=== PATIENT | male | born 1960 | race Caucasian/White ===

== ENCOUNTER 2019-12-21 07:37 | Emergency (ER) | payer SELFPAY ==
[2019-12-21] VITALS (16 sets, daily range): BP systolic 132–186; BP diastolic 71–89; PULSE 62–64; RESP 13–20; TEMP 36.4; O2SAT 92–98; BMI 43.7
--- NOTE | 2019-12-21 07:49 | ED_ITS ---
Entered by Enedina Mendoza, acting as scribe for HPI - Headache General: Chief Complaint: Headache Stated Complaint: Headache,blurred vision Time Seen by Provider: 12/21/19 07:49 History of Present Illness: HPI Narrative: 59 yo male presents with headache and blurred vision. Patient states for the last month he has had a headache and yesterday he would notice some changes in his vision. Patient reports while driving he had looked down at the water over a bridge and then he returned to look at the roadway his vision became blurred and he became dizzy. Patient appears well. Patient does have a history of hypertension. And patient is on warfarin. MD elicited complaint: headache Severity: moderate Associated symptoms: Reports other (blurred vision) Review of Systems General: Reports: 10 or more systems reviewed and unremarkable except in HPI and below Neuro: Reports: headache and dizziness PFSH ED PFSH: Statuses (acute, chronic, etc) shown below reflect problem list status as previously entered and may not be historically accurate Family History (Updated 12/17/19 @ 09:58 by Brenda Caba LPN) Mother Myocardial infarction Social History Smoking and tobacco status: former smoker Physical Exam Const: COMMON NORMALS: no apparent distress and oriented x3 GENERAL APPEARANCE: cooperative HENMT: COMMON NORMALS: normocephalic, external ears normal, EAC's normal, TM's normal bilaterally and external nose normal HEAD & SCALP: normal to inspection and normocephalic FACE & SINUS: normal facial exam NOSE: external nose normal GENERAL EAR: hearing not grossly impaired EXTERNAL EAR: Yes external ears normal EXTERNAL AUDITORY CANAL: EAC's normal TYMPANIC MEMBRANE: TM's normal bilaterally MOUTH: oral and palatal mucosa normal THROAT: posterior oropharynx normal Eye: COMMON NORMALS: PERRL and EOMs intact bilaterally PUPIL: Yes PERRL Neck/C-Spine: COMMON NORMALS: full ROM and no lymphadenopathy Lymph: LYMPHATIC: no lymphedema noted Chest: COMMONS NORMALS: inspection of chest normal and palpation of chest normal Resp: COMMON NORMALS: normal respiratory effort and clear to auscultation bilaterally AUSCULTATION: clear to auscultation bilaterally Cardio: COMMON NORMALS: regular rate and regular rhythm RATE: regular rate RHYTHM: regular rhythm GI: COMMON NORMALS: normal to inspection, nondistended, normoactive bowel sounds and non-tender : COMMON NORMALS: Yes no CVA tenderness BLADDER/KIDNEY EXAM: Yes no CVA tenderness Back/Pelvis: COMMON NORMALS: no CVA tenderness and thoracic and lumbar spine normal to inspection Extremity: COMMON NORMALS: normal to inspection GENERAL: No edema Neuro: COMMON NORMALS: oriented x3, moves all extremities and no focal motor deficits Psych: COMMON NORMALS: mental status grossly normal and cooperative Skin: COMMON NORMALS: no rashes or lesions noted GENERAL SKIN EXAM: no rashes or lesions noted Course Vital Signs: Vital signs: Vital Signs Temperature 97.6 F 12/21/19 07:43 Pulse Rate 62 12/21/19 09:29 Respiratory Rate 20 H 12/21/19 09:29 Blood Pressure 132/71 12/21/19 09:29 Pulse Oximetry 98 12/21/19 09:29 MDM - Headache MDM Narrative: Medical decision making narrative: Patient comes in today with complaints of headache and dizziness. Patient has a history of hypertension. Patient also reports history of vertigo. Patient appears well. Patient appears in no acute distress. Patient denies any nausea vomiting or chest pain. Patient appears in no pain. Exam notes normal for endoscopy. Bilateral tympanic membranes are clear. Respirations are even lungs are clear to auscultation. Abdomen is rotund. Differential diagnosis includes CVA, M?ni?re's disease, hearing loss, vertigo, BPV, anxiety. Patient had resolution of headache and dizziness with rest in the ER. CT scan of the head noted no abnormalities. EKG noted no acute changes. And laboratory values were normal. Troponin was normal. Reviewed exam with patient with recommendations for treatment with meclizine for dizziness. Since patient had resolution of headache in the emergency department we will just recommend Tylenol otherwise for pain. We will arrange for patient to have ENT follow-up for further evaluation of tinnitus and dizzy spells. Patient reports understanding agreed with plan and recommendations. Lab Data: Labs: Lab Results 12/21/19 12/21/19 12/21/19 Range/Units 08:13 08:13 08:13 WBC 7.2 (4.0-10.0) 10^3/ uL RBC 5.71 H (4.1-5.3) 10^6/u L Hgb 15.4 (11.7-16.6) g/dL Hct 48.0 (42.0-52.0) % MCV 84.1 (80-94) fL MCH 27.0 L (28.0-34.0) pg MCHC 32.1 (30.0-36.0) g/dL RDW 13.2 (12.1-15.1) % Plt Count 283 (130-400) 10^3/c mm MPV 10.1 (7.4-10.4) fL Neut % (Auto) 62.6 % Lymph % (Auto) 22.8 % [place] % (Auto) 7.2 % Eos % (Auto) 6.3 % Baso % (Auto) 0.8 % Neut # (Auto) 4.5 (1.8-7.7) 10^3/u L Lymph # (Auto) 1.6 (0.8-4.8) 10^3/u L [place] # (Auto) 0.5 (0.2-0.9) 10^3/u L Eos # (Auto) 0.5 (0.0-0.8) 10^3/u L Baso # (Auto) 0.1 (0.0-0.1) 10^3/u L Nucleated RBC % (a uto) 0 % Nucleated RBCs # 0.0 /100WBC Sodium 136 (136-145) mmol/L Potassium 4.3 (3.5-5.1) mmol/L Chloride 101 (98-107) mmol/L Carbon Dioxide 23 (22-29) mmol/L Anion Gap 16.3 (5-19) BUN 12 (6-20) mg/dL Creatinine 0.8 (0.7-1.2) mg/dL GFR Calculation 99.3 (90-130) mL/min Glucose 142 H (65-115) mg/dL Calcium 9.2 (8.5-10.5) mg/dL Total Bilirubin 0.5 (0.15-1.2) mg/dL AST 17 (0-40) U/L ALT 17 (0-41) U/L Alkaline Phosphata se 109 (40-130) IU/L Troponin T Baselin e 9 (0-15) ng/mL Total Protein 7.0 (6.6-8.7) g/dL Albumin 3.9 (3.5-5.2) g/dL Globulin 3.1 (1.3-4.6) g/dL EKG Data^: EKG 1: Attestation: I personally reviewed and interpreted this EKG as follows: (0811, SR, rate 57 bpm and regular, no ectopy, no ST elevation) Discharge Plan Discharge Patient Disposition: Home, Self-Care Clinical Impression: Vertigo, Bilateral tinnitus Hypertension Qualifiers: Hypertension type: essential hypertension Qualified Code(s): I10 - Essential (primary) hypertension Condition: Stable Prescriptions: New meclizine 25 mg tablet 25 mg PO TID PRN (Reason: dizziness) Qty: 30 RF: 0 No Action aspirin [Adult Low Dose Aspirin] 81 mg tablet,delayed release (DR/EC) 81 mg PO DAILY RF: 0 sotalol 80 mg tablet 80 mg PO BID RF: 0 nitroglycerin [Nitrostat] 0.4 mg tablet, sublingual 0.4 mg SUBLINGUAL Q5M PRNRF: 0 warfarin 5 mg tablet 5 mg PO DIRECTED RF: 0 lovastatin 40 mg tablet 40 mg PO DAILY RF: 0 amlodipine 10 mg tablet 10 mg PO DAILY RF: 0 Discharge Orders: Discharge Order (Routine); Ordered 12/21/19 Ordered By: Pablo Prabhakar Referrals: Giorgi Cortes MD [Primary Care Provider] - Discharge Diet: Usual diet Discharge Activity: Resume usual activity Patient Instructions: Meclizine (By mouth), Headache, Benign Paroxysmal Positional Vertigo (ED) Activity Restrictions/Additional Instructions: Drink plenty of fluids Continue with routine medications Activity as tolerated Follow-up with primary care for further treatment Case management will contact you regarding ENT follow-up Coding Level of Care Code ED Doctor Of Medicine for Chg Fwd Exam Problem Focused The documentation recorded by the Reji john Kialy, accurately reflects the service I personally performed and the decisions made by Vanna mariano William J, FNP Dec 21, 2019 07:37
--- NOTE | 2019-12-21 07:49 | CTR_ITS ---
PROCEDURE INFORMATION: Exam: CT Head Without Contrast Exam date and time: 12/21/2019 7:51 AM Age: 59 years old Clinical indication: Pain; Headache not specified; Patient HX: C/O SINGLETON w blurred vision x 1 month; Additional info: Headache, blurred vision TECHNIQUE: Imaging protocol: Computed tomography of the head without contrast. Total DLP: 910.77 mGy-cm Radiation optimization: All CT scans at this facility use at least one of these dose optimization techniques: automated exposure control; mA and/or kV adjustment per patient size (includes targeted exams where dose is matched to clinical indication); or iterative reconstruction. COMPARISON: No relevant prior studies available. FINDINGS: Brain: There is no acute intracranial hemorrhage or mass effect. Mild diffuse volume loss is within the range of normal for patient age. There are small vessel ischemic changes within the periventricular and subcortical white matter, but the normal marin/white matter delineation is maintained. Ventricles: Normal. No ventriculomegaly. Bones/joints: Unremarkable. No acute fracture. Sinuses: Visualized sinuses are unremarkable. No fluid levels. Mastoid air cells: Visualized mastoid air cells are well aerated. Soft tissues: Unremarkable. CT/CT head wo con* [id number] IMPRESSION: No acute intracranial hemorrhage or edema. Radiation Dose CTDIVOL = (mGy): DLP = 910.77 (mGy-cm)
--- NOTE | 2019-12-21 07:50 | ECG_ITS ---
Measurements Intervals [place] Rate: 57 P: 61 [place]: 154 QRS: 66 QRSD: 118 T: 78 QT: 419 QTc: 410 SINUS BRADYCARDIA POSSIBLE LEFT ATRIAL ENLARGEMENT [-0.1mV P WAVE IN V1/V2] INDETERMINATE AXIS INCOMPLETE RIGHT BUNDLE BRANCH BLOCK [90+ ms QRS DURATION, TERMINAL R IN V1/V2, 4 Compared to ECG 11/28/2017 11:02:08 Indeterminate axis now present Atrial fibrillation no longer present ST (T wave) deviation no longer present Electronically Signed On 12-21-2019 22:16:12 CAN DRAGGER by Diane Heart M.D. [id number]
--- NOTE | 2019-12-21 07:54 | PC.NURSE ---
Pt to CT
--- NOTE | 2019-12-21 08:04 | PC.NURSE ---
Pt returned from CT
[2019-12-21 08:24] LABS: Basophils # 0.1 10^3/uL (0.0-0.1); Basophils % 0.8 %; Eosinophils # 0.5 10^3/uL (0.0-0.8); Eosinophils % 6.3 %; Hemoglobin 15.4 g/dL (11.7-16.6); Lymphocytes # 1.6 10^3/uL (0.8-4.8); Lymphocytes % 22.8 %; Mean Corpuscular HGB Conc 32.1 g/dL (30.0-36.0); Mean Corpuscular Volume 84.1 fL (80-94); Mean Platelet Volume 10.1 fL (7.4-10.4); Monocytes # 0.5 10^3/uL (0.2-0.9); Monocytes % 7.2 %; Neutrophils # 4.5 10^3/uL (1.8-7.7); Neutrophils % 62.6 %; Nucleated Red Blood Cells % 0 %; Platelet Count 283 10^3/cmm (130-400); Red Blood Count 5.71 10^6/uL (4.1-5.3); Red Cell Distribution Width 13.2 % (12.1-15.1); White Blood Count 7.2 10^3/uL (4.0-10.0)
[2019-12-21 08:45] LABS: Alanine Aminotransferase 17 U/L (0-41); Albumin Level 3.9 g/dL (3.5-5.2); Alkaline Phosphatase 109 IU/L (40-130); Anion Gap 16.3 (5-19); Aspartate Amino Transferase 17 U/L (0-40); Blood Urea Nitrogen 12 mg/dL (6-20); Calcium 9.2 mg/dL (8.5-10.5); Carbon Dioxide 23 mmol/L (22-29); Chloride 101 mmol/L (98-107); Globulin 3.1 g/dL (1.3-4.6); Glomerular Filtration Rate 99.3 mL/min (90-130); Glucose 142 mg/dL (65-115); Potassium 4.3 mmol/L (3.5-5.1); Sodium 136 mmol/L (136-145); Total Bilirubin 0.5 mg/dL (0.15-1.2)
[2019-12-21 08:46] LABS: Troponin(5th) Baseline 9 ng/mL (0-15)
[2019-12-21 09:08] LABS: Add Urine Microscopic? NO
[2019-12-21 09:50] LABS: Bilirubin Urine Neg (NEGATIVE); Blood Urine Neg (Negative); Glucose Urine UA Norm (Normal); Ketones Urine Negative (Negative); Leukocyte Esterase Urine Negative (Negative); Nitrate Urine Negative (Negative); Protein Urine Neg (Negative); Specific Gravity, Urine 1.015 (1.005-1.030); Urine Appearance Clear (CLEAR); Urine Color Yellow (Yellow); Urobilinogen Urine 1 mg/dL (Negative)
--- NOTE | 2019-12-24 14:12 | DCPLANNER ---
associate marketing manager had message to schedule a follow up appointment for patient with Dr. Painter, ENT. associate marketing manager called the office of Dr. Painter, spoke with Margarita, gave clinic patients information, clinic will call case management specialist and patient with appointment information.
--- NOTE | 2019-12-27 10:57 | DCPLANNER ---
Patient has an appointment scheduled for Thursday, January 02, 2020 at 9:[address] Painter. Clinic will call patient with appointment information.
--- NOTE | 2020-01-04 15:19 | DCPLANNER ---
Patient did attend appointment scheduled for 01.02.20 with ENT.
== END 2019-12-21 09:47 | disposition home or self-care (01) ==
PROVIDERS: Emergency Provider Nurse Practitioner Family; Family Provider Family Medicine; PCP Family Medicine
DX: H93.13 Tinnitus, bilateral (principal); R42 Dizziness and giddiness; I10 Essential (primary) hypertension; Z79.82 Long term (current) use of aspirin; Z79.01 Long term (current) use of anticoagulants; Z87.891 Personal history of nicotine dependence
CPT/HCPCS: 36415; 70450; 80053; 81003; 84484; 85025; 93005; 99283

== ENCOUNTER → 2020-01-02 08:48 | Outpatient (BNVA) | payer SELFPAY | PROVIDERS: Family Provider Family Medicine; PCP Family Medicine; Visit Provider Otolaryngology | DX: H93.13 Tinnitus, bilateral (principal); H90.3 Sensorineural hearing loss, bilateral | CPT/HCPCS: 99203; 99214 ==

== ENCOUNTER 2020-05-12 23:07 | Emergency (ER) | payer SELFPAY ==
[2020-05-12 23:19] VITALS: BP 165/97; PULSE 64; RESP 22; TEMP 36.5; O2SAT 96; BMI 41.8
--- NOTE | 2020-05-12 23:32 | XRR_ITS ---
PROCEDURE INFORMATION: Exam: XR Chest, 1 View Exam date and time: 05/12/2020 11:50 PM Age: 59 years old Clinical indication: Chest pain; Type not specified; Patient HX: Cp x 3 days TECHNIQUE: Imaging protocol: XR of the chest Views: 1 view. COMPARISON: CR Chest 1 [place] [id number] 11/28/2017 7:58 AM FINDINGS: Lungs: Unremarkable. No consolidation. Pleural space: Unremarkable. No pleural effusion. No pneumothorax. Heart/Mediastinum: There is mild cardiomegaly. Bones/joints: Unremarkable. XR/XR chest 1V portable [id number] IMPRESSION: No acute abnormality.
--- NOTE | 2020-05-12 23:33 | ECG_ITS ---
[facility] Test Date: 2020-05-13 Pat Name: Dariel Peck Department: Room: Gender: Male S[employer] W[employer] Hand: : 1960 Requested By: Weston Cordero Order Number: [id number] Brianna MD: Diane Heart M.D. Measurements Intervals [place] Rate: 53 P: 49 DC: 162 QRS: 123 QRSD: 113 T: 62 QT: 430 QTc: 405 Interpretive Statements SINUS BRADYCARDIA POSSIBLE LEFT ATRIAL ENLARGEMENT [-0.1mV P WAVE IN V1/V2] INDETERMINATE AXIS INCOMPLETE RIGHT BUNDLE BRANCH BLOCK [90+ ms QRS DURATION, TERMINAL R IN V1/V2, 40+ ms S IN I/aVL/V4/V5/V6] Compared to ECG 12/21/2019 08:11:32 No significant changes Electronically Signed On 05-13-2020 19:32:33 CDT by Diane Heart M.D. [id number] f
[2020-05-12 23:38] VITALS: BP 163/91; PULSE 59; RESP 13
--- NOTE | 2020-05-12 23:38 | ED_ITS ---
HPI - SOB/Dyspnea General: Chief Complaint: Shortness of Breath/Dyspnea Stated Complaint: sob Time Seen by Provider: 05/12/20 23:11 Source: patient Mode of arrival: ambulatory Limitations: no limitations History of Present Illness: HPI Narrative: 59-year-old male who is here with multiple complaints. He states of last 5 to 6 days he had a sore throat along with cough shortness of breath and nausea. Patient denies any worsening or improving factors. Patient denies any fevers. Patient denies chest pain. Patient's in no distress here. Patient's pulse ox 100%. MD elicited complaint: shortness of breath Associated symptoms: Reports nausea and vomiting; Deny chest pain or fever(s) Review of Systems Const: Denies: fever(s), chills, body aches or change in appetite Eyes: Denies: blurry vision or eye discomfort ENMT: Denies: throat pain or dental pain Card: Denies: chest pain Resp: Reports: dyspnea GI: Reports: nausea and vomiting : Denies: dysuria Musc: Denies: neck pain or back pain Skin/Breast: Denies: rash Neuro: Denies: headache(s) Psych: Denies: depression Temo/Lymph: Denies: easy bruising All/Imm: Denies: urticaria PFSH ED PFSH: Medical History Sensorineural hearing loss Family History Mother Myocardial infarction Social History Smoking and tobacco status: former smoker Physical Exam Const: COMMON NORMALS: no acute distress, patient oriented x3 and healthy appearing HENMT: COMMON NORMALS: normocephalic and atraumatic HEAD & SCALP: normocephalic and atraumatic Eye: COMMON NORMALS: Equal, round and reactive pupils present and EOMs intact bilaterally PUPIL: Yes Equal, round and reactive pupils present Neck/C-Spine: COMMON NORMALS: full ROM and supple Chest: COMMONS NORMALS: normal inspection of the chest and normal palpation of entire chest wall Resp: COMMON NORMALS: normal respiratory effort, No retractions, No use of accessory muscles and clear to auscultation bilaterally AUSCULTATION: clear to auscultation bilaterally Cardio: COMMON NORMALS: regular rate, regular rhythm and No murmurs present (Cardio) RATE: regular rate RHYTHM: regular rhythm GI: COMMON NORMALS: Normal to inspection, nondistended, normoactive bowel sounds present, Soft to palpation, non-tender and no masses PALPATION: Yes Soft to palpation Extremity: COMMON NORMALS: normal to inspection and full ROM Neuro: COMMON NORMALS: patient oriented x3, moves all extremities and no focal motor deficits Psych: COMMON NORMALS: mental status grossly normal, Normal thought process present and cooperative THOUGHT PROCESS: Normal thought process present Skin: COMMON NORMALS: no rashes or lesions noted and no wounds GENERAL SKIN EXAM: no rashes or lesions noted Course Vital Signs: Vital signs: Vital Signs Temperature 97.7 F 05/12/20 23:19 Pulse Rate 59 L 05/13/20 01:16 Respiratory Rate 18 05/13/20 01:16 Blood Pressure 133/84 05/13/20 01:16 Pulse Oximetry 97 05/13/20 01:16 MDM - SOB/Dyspnea MDM Narrative: Medical decision making narrative: Dariel presents here with dyspnea and he is concerned that he may have COVID he has had sore throat as well. Patient denies fever and is in no acute distress here. Patient's x-ray and lab work here is all normal. Patient's troponin and EKG is normal as well. Patient is stable for discharge and he is to follow-up with primary care doctor in 3 to 5 days return if worsening. Lab Data: Labs: Lab Results 05/12/20 05/12/20 05/12/20 Range/Units 23:50 23:50 23:50 WBC 9.1 (4.0-10.0) 10^3/ uL RBC 5.72 H (4.1-5.3) 10^6/u L Hgb 15.8 (11.7-16.6) g/dL Hct 49.5 (42.0-52.0) % MCV 86.5 (80-94) fL MCH 27.6 L (28.0-34.0) pg MCHC 31.9 (30.0-36.0) g/dL RDW 13.5 (12.1-15.1) % Plt Count 300 (130-400) 10^3/c mm MPV 10.4 (7.4-10.4) fL Neut % (Auto) 65.1 % Lymph % (Auto) 21.3 % [place] % (Auto) 8.6 % Eos % (Auto) 4.1 % Baso % (Auto) 0.7 % Neut # (Auto) 5.9 (1.8-7.7) 10^3/u L Lymph # (Auto) 1.9 (0.8-4.8) 10^3/u L [place] # (Auto) 0.8 (0.2-0.9) 10^3/u L Eos # (Auto) 0.4 (0.0-0.8) 10^3/u L Baso # (Auto) 0.1 (0.0-0.1) 10^3/u L Nucleated RBC % (a uto) 0 % Nucleated RBCs # 0.0 /100WBC Sodium 138 (136-145) mmol/L Potassium 3.7 (3.5-5.1) mmol/L Chloride 100 (98-107) mmol/L Carbon Dioxide 24 (22-29) mmol/L Anion Gap 17.7 (5-19) BUN 14 (6-20) mg/dL Creatinine 0.8 (0.7-1.2) mg/dL GFR Calculation 99.3 (90-130) mL/min Glucose 158 H (65-115) mg/dL Calculated Osmolal ity 286 (285-295) mOsm/k g Calcium 9.2 (8.5-10.5) mg/dL Total Bilirubin 0.6 (0.15-1.2) mg/dL AST 20 (0-40) U/L ALT 23 (0-41) U/L Alkaline Phosphata se 89 (40-130) IU/L Troponin T Baselin e 12 (0-15) ng/L NT-Pro-B Natriuret Pep 124 (0-125) pg/mL Total Protein 7.7 (6.6-8.7) g/dL Albumin 4.3 (3.5-5.2) g/dL Globulin 3.4 (1.3-4.6) g/dL Lipase 51 (13-60) U/L Imaging Data^: CXR: Attestation: I personally reviewed and interpreted this imaging study as follows: My impression: no acute abnormality EKG Data^: EKG 1: Attestation: I personally reviewed and interpreted this EKG as follows: EKG Interpretation Date: 05/13/20 EKG interpretation time: 00:00 Interpretation: Sinus bradycardia heart rate [address] or T wave abnormalities QRS 113 QTc 413 Discharge Plan Discharge Patient Disposition: Home, Self-Care Clinical Impression: Dyspnea Qualifiers: Dyspnea type: unspecified Qualified Code(s): R06.00 - Dyspnea, unspecified Condition: Stable Prescriptions: No Action aspirin [Adult Low Dose Aspirin] 81 mg tablet,delayed release (DR/EC) 81 mg PO DAILY RF: 0 nitroglycerin [Nitrostat] 0.4 mg tablet, sublingual 0.4 mg SUBLINGUAL Q5M PRNRF: 0 warfarin 5 mg tablet 5 mg PO DIRECTED RF: 0 lovastatin 40 mg tablet 40 mg PO DAILY RF: 0 amlodipine 10 mg tablet 10 mg PO DAILY RF: 0 sotalol 80 mg tablet 80 mg PO DAILY RF: 0 losartan 50 mg tablet 50 mg PO DAILY RF: 0 meclizine 25 mg tablet 25 mg PO TID PRN (Reason: dizziness) Qty: 30 RF: 0 Discharge Orders: Discharge Order (Routine); Ordered 05/13/20 Ordered By: Weston Cordero Referrals: Giorgi Cortes MD [Primary Care Provider] - 1-3 days Discharge Diet: Advance as tolerated Discharge Activity: Resume usual activity Patient Instructions: Dyspnea (ED) Discharge Date/Time: 05/13/20 01:19 Coding Level of Care Code ED Rotary Lithographic Press Operator for Chg Fwd Exam Comprehensive
[2020-05-12 23:54] LABS: Basophils # 0.1 10^3/uL (0.0-0.1); Basophils % 0.7 %; Eosinophils # 0.4 10^3/uL (0.0-0.8); Eosinophils % 4.1 %; Hematocrit 49.5 % (42.0-52.0); Hemoglobin 15.8 g/dL (11.7-16.6); Lymphocytes # 1.9 10^3/uL (0.8-4.8); Lymphocytes % 21.3 %; Mean Corpuscular HGB Conc 31.9 g/dL (30.0-36.0); Mean Corpuscular Hemoglobin 27.6 pg (28.0-34.0); Mean Corpuscular Volume 86.5 fL (80-94); Mean Platelet Volume 10.4 fL (7.4-10.4); Monocytes # 0.8 10^3/uL (0.2-0.9); Monocytes % 8.6 %; Neutrophils # 5.9 10^3/uL (1.8-7.7); Neutrophils % 65.1 %; Nucleated Red Blood Cells % 0 %; Platelet Count 300 10^3/cmm (130-400); Red Blood Count 5.72 10^6/uL (4.1-5.3); Red Cell Distribution Width 13.5 % (12.1-15.1); White Blood Count 9.1 10^3/uL (4.0-10.0)
[2020-05-13] VITALS: BP 150/78; PULSE 57; RESP 14; O2SAT 96
[2020-05-13 00:12] LABS: Troponin(5th) Baseline 12 ng/L (0-15)
[2020-05-13 00:20] LABS: Alanine Aminotransferase 23 U/L (0-41); Albumin Level 4.3 g/dL (3.5-5.2); Alkaline Phosphatase 89 IU/L (40-130); Anion Gap 17.7 (5-19); Aspartate Amino Transferase 20 U/L (0-40); Blood Urea Nitrogen 14 mg/dL (6-20); Calcium 9.2 mg/dL (8.5-10.5); Carbon Dioxide 24 mmol/L (22-29); Chloride 100 mmol/L (98-107); Globulin 3.4 g/dL (1.3-4.6); Glomerular Filtration Rate 99.3 mL/min (90-130); Glucose 158 mg/dL (65-115); Lipase 51 U/L (13-60); NT Pro B Type Natriuretic Pept 124 pg/mL (0-125); Osmolality Calculated 286 mOsm/kg (285-295); Potassium 3.7 mmol/L (3.5-5.1); Sodium 138 mmol/L (136-145); Total Bilirubin 0.6 mg/dL (0.15-1.2); Total Protein 7.7 g/dL (6.6-8.7)
[2020-05-13 00:30] VITALS: BP 161/83; PULSE 54; RESP 13; O2SAT 95
[2020-05-13 01:16] VITALS: BP 133/84; PULSE 59; RESP 18; O2SAT 97
[2020-05-14 22:31] LABS: Quest SARS-CoV-2 RNA NOT DETECTED (NOT DETECTED)
== END 2020-05-13 01:19 | disposition home or self-care (01) ==
PROVIDERS: Emergency Provider Emergency Medicine; PCP Family Medicine
DX: R06.00 Dyspnea, unspecified (principal); Z79.01 Long term (current) use of anticoagulants; Z79.82 Long term (current) use of aspirin; Z87.891 Personal history of nicotine dependence
CPT/HCPCS: 12345; 71045; 80053; 83690; 83880; 84484; 85025; 87635; 93005; 99283; 99284

== ENCOUNTER 2020-05-14 15:31 | Emergency (ER) | payer SELFPAY ==
[2020-05-14] VITALS (7 sets, daily range): BP systolic 140–176; BP diastolic 73–92; PULSE 51–73; RESP 17–22; TEMP 36; O2SAT 94–98; BMI 41.8
--- NOTE | 2020-05-14 16:30 | XRR_ITS ---
PROCEDURE INFORMATION: Exam: XR Chest, 1 View Exam date and time: 05/14/2020 4:43 PM Age: 59 years old Clinical indication: Shortness of breath; Prior surgery; Surgery type: Stents; Additional info: Chest pain, SOB, high BP TECHNIQUE: Imaging protocol: XR of the chest Views: 1 view. COMPARISON: CR XR chest 1V portable [id number] 05/12/2020 11:37 PM FINDINGS: Lungs: Linear atelectasis or scar in the left lung base with volume loss. Mild atelectasis in the medial right lung base. Pleural space: Unremarkable. No pleural effusion. No pneumothorax. Heart/Mediastinum: Unremarkable. No cardiomegaly. Bones/joints: Degenerative shoulders. XR/XR chest 1V portable [id number] IMPRESSION: Stable basilar atelectasis.
[2020-05-14 17:03] LABS: Basophils # 0.1 10^3/uL (0.0-0.1); Basophils % 0.6 %; Eosinophils # 0.4 10^3/uL (0.0-0.8); Eosinophils % 3.6 %; Hematocrit 55.9 % (42.0-52.0); Hemoglobin 17.5 g/dL (11.7-16.6); Lymphocytes # 2.1 10^3/uL (0.8-4.8); Lymphocytes % 19.7 %; Mean Corpuscular HGB Conc 31.3 g/dL (30.0-36.0); Mean Corpuscular Hemoglobin 27.2 pg (28.0-34.0); Mean Corpuscular Volume 86.9 fL (80-94); Monocytes # 0.8 10^3/uL (0.2-0.9); Monocytes % 7.2 %; Neutrophils # 7.3 10^3/uL (1.8-7.7); Neutrophils % 68.6 %; Nucleated Red Blood Cells % 0 %; Platelet Count 352 10^3/cmm (130-400); Red Blood Count 6.43 10^6/uL (4.1-5.3); Red Cell Distribution Width 13.6 % (12.1-15.1); White Blood Count 10.6 10^3/uL (4.0-10.0)
--- NOTE | 2020-05-14 17:03 | ECG_ITS ---
[facility] Test Date: 2020-05-14 Pat Name: Dariel Peck Department: Room: Gender: Male [employer] Supervisor: : 1960 Requested By: Lázaro Robb Order Number: [id number] Brianna MD: Jorge Wolfe M.D. Measurements Intervals [place] Rate: 58 P: 47 [place]: 159 QRS: 132 QRSD: 106 T: 67 QT: 407 QTc: 401 Interpretive Statements SINUS BRADYCARDIA POSSIBLE LEFT ATRIAL ENLARGEMENT [-0.1mV P WAVE IN V1/V2] INDETERMINATE AXIS INCOMPLETE RIGHT BUNDLE BRANCH BLOCK [90+ ms QRS DURATION, TERMINAL R IN V1/V2, 40+ ms S IN I/aVL/V4/V5/V6] Compared to ECG 05/13/2020 00:00:05 No significant changes Electronically Signed On 05-14-2020 17:45:14 CDT by Jorge Wolfe M.D. [id number]
[2020-05-14 17:18] LABS: INR 2.02 (0.8-1.2)
--- NOTE | 2020-05-14 17:21 | W.ED.SOB ---
Documented by User: Lázaro Rhodes DO 05/16/20 14:13 HPI - SOB/Dyspnea General: Chief Complaint: Shortness of Breath/Dyspnea Stated Complaint: sob Time Seen by Provider: 05/14/20 16:45 History of Present Illness: HPI Narrative: 59-year-old male presents emergency room complaining of dyspnea. He was here 2 days ago and there was a concern about COVID-19 he was swabbed a swab when out yesterday and has not yet resulted from [facility]. He states he had a headache this morning had some fluttering in his chest he has a history of atrial fibrillation he is on Coumadin but he does not recall his last INR. His appetites been poor he is not had a fever at all he had a couple of episodes randomly of diarrhea but no blood is not had any nausea or vomiting. He denies any chest pain denies any abdominal pain blood pressure at home was up to 190/95 the base issues of shortness of breath and is vague complaints of not feeling well and having a headache. 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 He is not had any progression or worsening of his symptoms necessarily since he was last seen is just that they are persisting. MD elicited complaint: shortness of breath Pertinent past history: other (Atrial fibrillation, morbid obesity) Onset (ago): day(s) Context: recent illness and other (Possible COVID exposures) Timing: intermittent Severity: moderate Exacerbating factors: exertion and coughing Relieving factors: rest Associated symptoms: Reports chest congestion, cough, lightheadedness, nausea and other (Headache); Deny fever(s) Review of Systems Const: Denies: fever(s), chills, body aches, change in appetite, fatigue or malaise ENMT: Denies: throat pain, ear or mastoid pain, nasal discharge or nasal congestion Card: Reports: lightheadedness Resp: Reports: chest congestion GI: Reports: nausea : Denies: flank pain, dysuria, urinary frequency or urinary urgency Skin/Breast: Denies: rash or pruritus PFS ED PFSH: Medical History (Updated 05/14/20 @ 20:42 by Weston Cordero MD) Atrial fibrillation CAD in table mountain artery HTN (hypertension) Hyperlipidemia Ischemic cardiomyopathy SHENA (obstructive sleep apnea) Sensorineural hearing loss Surgical History (Updated 05/14/20 @ 17:26 by Lázaro Rhodes DO) S/P knee surgery S/P PTCA (percutaneous transluminal coronary angioplasty) Family History Mother Myocardial infarction Social History Smoking and tobacco status: former smoker Physical Exam Const: COMMON NORMALS: no acute distress GENERAL APPEARANCE: cooperative and comfortable ORIENTATION/CONSCIOUSNESS: Yes awake, Yes oriented to person, Yes oriented to place and Yes oriented to time HENMT: COMMON NORMALS: normocephalic, atraumatic, hearing grossly normal bilaterally, moist oral mucous membranes and oropharynx normal HEAD & SCALP: normocephalic and atraumatic Eye: COMMON NORMALS: Equal, round and reactive pupils present, EOMs intact bilaterally, conjunctivae normal and no scleral icterus CONJUNCTIVA: Yes conjunctivae normal PUPIL: Yes Equal, round and reactive pupils present Neck/C-Spine: COMMON NORMALS: full ROM, no lymphadenopathy, supple and no JVD Lymph: LYMPHATIC: no lymphadenopathy noted and no lymphedema noted Resp: COMMON NORMALS: normal respiratory effort, No retractions, No use of accessory muscles and clear to auscultation bilaterally AUSCULTATION: clear to auscultation bilaterally Cardio: COMMON NORMALS: no JVD, regular rate, regular rhythm and No murmurs present (Cardio) RATE: regular rate RHYTHM: regular rhythm GI: COMMON NORMALS: Soft to palpation and No hepatosplenomegaly present INSPECTION: Yes central obesity and Yes other (Morbidly obese) AUSCULTATION: Yes normoactive bowel sounds PALPATION: Yes Soft to palpation, No Tenderness to palpation present (GI), No Guarding due to palpation present (GI) and Yes No hepatosplenomegaly present Extremity: COMMON NORMALS: normal to inspection, capillary refill normal, no clubbing, cyanosis or edema, no calf tenderness and no pedal edema Neuro: SENSORIUM/ORIENTATION: Yes oriented to person, Yes oriented to place and Yes oriented to time Skin: COMMON NORMALS: no rashes or lesions noted GENERAL SKIN EXAM: no rashes or lesions noted Course Vital Signs: Vital signs: Vital Signs Temperature 96.8 F L 05/14/20 15:37 Pulse Rate 66 07/02/20 01:47 Respiratory Rate 17 05/15/20 01:47 Blood Pressure 165/93 05/15/20 01:47 Pulse Oximetry 93 05/15/20 01:47 MDM - SOB/Dyspnea Lab Data: Labs: Lab Results 05/14/20 05/14/20 05/14/20 Range/Units 16:50 16:50 16:50 WBC 10.6 H (4.0-10.0) 10^3/ uL RBC 6.43 H (4.1-5.3) 10^6/u L Hgb 17.5 H (11.7-16.6) g/dL Hct 55.9 H (42.0-52.0) % MCV 86.9 (80-94) fL MCH 27.2 L (28.0-34.0) pg MCHC 31.3 (30.0-36.0) g/dL RDW 13.6 (12.1-15.1) % Plt Count 352 (130-400) 10^3/c mm MPV 10.0 (7.4-10.4) fL Neut % (Auto) 68.6 % Lymph % (Auto) 19.7 % [place] % (Auto) 7.2 % Eos % (Auto) 3.6 % Baso % (Auto) 0.6 % Neut # (Auto) 7.3 (1.8-7.7) 10^3/u L Lymph # (Auto) 2.1 (0.8-4.8) 10^3/u L [place] # (Auto) 0.8 (0.2-0.9) 10^3/u L Eos # (Auto) 0.4 (0.0-0.8) 10^3/u L Baso # (Auto) 0.1 (0.0-0.1) 10^3/u L Nucleated RBC % (a uto) 0 % Nucleated RBCs # 0.0 /100WBC PT 23.60 H (10.5-13.3) SECO NDS INR 2.02 H (0.8-1.2) Sodium 140 (136-145) mmol/L Potassium 4.0 (3.5-5.1) mmol/L Chloride 99 (98-107) mmol/L Carbon Dioxide 27 (22-29) mmol/L Anion Gap 18.0 (5-19) BUN 15 (6-20) mg/dL Creatinine 1.0 (0.7-1.2) mg/dL GFR Calculation 76.7 L (90-130) mL/min Glucose 102 (65-115) mg/dL Calculated Osmolal ity 286 (285-295) mOsm/k g Calcium 9.8 (8.5-10.5) mg/dL Total Bilirubin 0.6 (0.15-1.2) mg/dL AST 25 (0-40) U/L ALT 30 (0-41) U/L Alkaline Phosphata se 110 (40-130) IU/L Troponin T Baselin e (0-15) ng/L Troponin T 120 Min [place] (0-15) ng/L Delta Troponin T (0-10) ABS# Total Protein 7.9 (6.6-8.7) g/dL Albumin 5.0 (3.5-5.2) g/dL Globulin 2.9 (1.3-4.6) g/dL 05/14/20 05/14/20 Range/Units 16:50 19:04 WBC (4.0-10.0) 10^3/ uL RBC (4.1-5.3) 10^6/u L Hgb (11.7-16.6) g/dL Hct (42.0-52.0) % MCV (80-94) fL MCH (28.0-34.0) pg MCHC (30.0-36.0) g/dL RDW (12.1-15.1) % Plt Count (130-400) 10^3/c mm MPV (7.4-10.4) fL Neut % (Auto) % Lymph % (Auto) % [place] % (Auto) % Eos % (Auto) % Baso % (Auto) % Neut # (Auto) (1.8-7.7) 10^3/u L Lymph # (Auto) (0.8-4.8) 10^3/u L [place] # (Auto) (0.2-0.9) 10^3/u L Eos # (Auto) (0.0-0.8) 10^3/u L Baso # (Auto) (0.0-0.1) 10^3/u L Nucleated RBC % (a uto) % Nucleated RBCs # /100WBC PT (10.5-13.3) SECO NDS INR (0.8-1.2) Sodium (136-145) mmol/L Potassium (3.5-5.1) mmol/L Chloride (98-107) mmol/L Carbon Dioxide (22-29) mmol/L Anion Gap (5-19) BUN (6-20) mg/dL Creatinine (0.7-1.2) mg/dL GFR Calculation (90-130) mL/min Glucose (65-115) mg/dL Calculated Osmolal ity (285-295) mOsm/k g Calcium (8.5-10.5) mg/dL Total Bilirubin (0.15-1.2) mg/dL AST (0-40) U/L ALT (0-41) U/L Alkaline Phosphata se (40-130) IU/L Troponin T Baselin e 13 (0-15) ng/L Troponin T 120 Min [place] 12.02 (0-15) ng/L Delta Troponin T -0.98 L (0-10) ABS# Total Protein (6.6-8.7) g/dL Albumin (3.5-5.2) g/dL Globulin (1.3-4.6) g/dL Discharge Plan Discharge Patient Disposition: Home, Self-Care Clinical Impression: Dyspnea Qualifiers: Dyspnea type: dyspnea on exertion Qualified Code(s): R06.00 - Dyspnea, unspecified Condition: Stable Prescriptions: New prednisone 50 mg tablet 50 mg PO DAILY Qty: 5 RF: 0 Lasix 40 mg tablet 40 mg PO DAILY Qty: 30 RF: 0 No Action nitroglycerin [Nitrostat] 0.4 mg tablet, sublingual 0.4 mg SUBLINGUAL Q5M PRN (Reason: Chest Pain) RF: 0 warfarin 5 mg tablet 5 mg PO DIRECTED RF: 0 lovastatin 40 mg tablet 40 mg PO DAILY RF: 0 amlodipine 10 mg tablet 10 mg PO DAILY RF: 0 sotalol 80 mg tablet 80 mg PO DAILY RF: 0 losartan 50 mg tablet 50 mg PO DAILY RF: 0 furosemide 40 mg tablet 40 mg PO DAILY RF: 0 fluticasone propion-salmeterol 250-50 mcg/dose blister with device 1 inh INHALATION BID RF: 0 potassium chloride 10 mEq tablet extended release 10 meq PO DAILY RF: 0 meclizine 25 mg tablet 25 mg PO TID PRN (Reason: dizziness) Qty: 30 RF: 0 Discharge Orders: Discharge Order (Routine); Ordered 05/14/20 Ordered By: Weston Cordero Referrals: Giorgi Cortes MD [Primary Care Provider] - 1-3 days Discharge Diet: Advance as tolerated Discharge Activity: Resume usual activity Patient Instructions: Dyspnea (ED) Discharge Date/Time: 05/15/20 01:40 Coding Level of Care Code ED Medical Insurance Coding Specialist for Chg Fwd Exam Comprehensive Documented by User: Weston Cordero MD 05/14/20 20:47 HPI - SOB/Dyspnea General: Chief Complaint: Shortness of Breath/Dyspnea Stated Complaint: sob Time Seen by Provider: 05/14/20 16:45 PFSH ED PFSH: Medical History (Updated 05/14/20 @ 20:42 by Weston Cordero MD) Atrial fibrillation CAD in table [place] artery HTN (hypertension) Hyperlipidemia Ischemic cardiomyopathy SHENA (obstructive sleep apnea) Sensorineural hearing loss Surgical History (Updated 05/14/20 @ 17:26 by Lázaro Rhodes DO) S/P knee surgery S/P PTCA (percutaneous transluminal coronary angioplasty) Family History Mother Myocardial infarction Social History Smoking and tobacco status: former smoker Course Vital Signs: Vital signs: Vital Signs Temperature 96.8 F L 05/14/20 15:37 Pulse Rate 66 05/15/20 01:47 Respiratory Rate 17 05/15/20 01:47 Blood Pressure 165/93 05/15/20 01:47 Pulse Oximetry 93 05/15/20 01:47 MDM - SOB/Dyspnea MDM Narrative: Medical decision making narrative: Patient presents for shortness of breath is been going on for weeks. Patient informed he needs to take Lasix daily. Will place patient on steroids as well. CT showed no signs of pulmonary embolism or infection. He is stable for discharge and is to follow-up with primary care doctor in 3 to 5 days and return if worsening. Lab Data: Labs: Lab Results 05/14/20 05/14/20 05/14/20 Range/Units 16:50 16:50 16:50 WBC 10.6 H (4.0-10.0) 10^3/ uL RBC 6.43 H (4.1-5.3) 10^6/u L Hgb 17.5 H (11.7-16.6) g/dL Hct 55.9 H (42.0-52.0) % MCV 86.9 (80-94) fL MCH 27.2 L (28.0-34.0) pg MCHC 31.3 (30.0-36.0) g/dL RDW 13.6 (12.1-15.1) % Plt Count 352 (130-400) 10^3/c mm MPV 10.0 (7.4-10.4) fL Neut % (Auto) 68.6 % Lymph % (Auto) 19.7 % [place] % (Auto) 7.2 % Eos % (Auto) 3.6 % Baso % (Auto) 0.6 % Neut # (Auto) 7.3 (1.8-7.7) 10^3/u L Lymph # (Auto) 2.1 (0.8-4.8) 10^3/u L [place] # (Auto) 0.8 (0.2-0.9) 10^3/u L Eos # (Auto) 0.4 (0.0-0.8) 10^3/u L Baso # (Auto) 0.1 (0.0-0.1) 10^3/u L Nucleated RBC % (a uto) 0 % Nucleated RBCs # 0.0 /100WBC PT 23.60 H (10.5-13.3) SECO NDS INR 2.02 H (0.8-1.2) Sodium 140 (136-145) mmol/L Potassium 4.0 (3.5-5.1) mmol/L Chloride 99 (98-107) mmol/L Carbon Dioxide 27 (22-29) mmol/L Anion Gap 18.0 (5-19) BUN 15 (6-20) mg/dL Creatinine 1.0 (0.7-1.2) mg/dL GFR Calculation 76.7 L (90-130) mL/min Glucose 102 (65-115) mg/dL Calculated Osmolal ity 286 (285-295) mOsm/k g Calcium 9.8 (8.5-10.5) mg/dL Total Bilirubin 0.6 (0.15-1.2) mg/dL AST 25 (0-40) U/L ALT 30 (0-41) U/L Alkaline Phosphata se 110 (40-130) IU/L Troponin T Baselin e (0-15) ng/L Troponin T 120 Min [place] (0-15) ng/L Delta Troponin T (0-10) ABS# Total Protein 7.9 (6.6-8.7) g/dL Albumin 5.0 (3.5-5.2) g/dL Globulin 2.9 (1.3-4.6) g/dL 05/14/20 05/14/20 Range/Units 16:50 19:04 WBC (4.0-10.0) 10^3/ uL RBC (4.1-5.3) 10^6/u L Hgb (11.7-16.6) g/dL Hct (42.0-52.0) % MCV (80-94) fL MCH (28.0-34.0) pg MCHC (30.0-36.0) g/dL RDW (12.1-15.1) % Plt Count (130-400) 10^3/c mm MPV (7.4-10.4) fL Neut % (Auto) % Lymph % (Auto) % [place] % (Auto) % Eos % (Auto) % Baso % (Auto) % Neut # (Auto) (1.8-7.7) 10^3/u L Lymph # (Auto) (0.8-4.8) 10^3/u L [place] # (Auto) (0.2-0.9) 10^3/u L Eos # (Auto) (0.0-0.8) 10^3/u L Baso # (Auto) (0.0-0.1) 10^3/u L Nucleated RBC % (a uto) % Nucleated RBCs # /100WBC PT (10.5-13.3) SECO NDS INR (0.8-1.2) Sodium (136-145) mmol/L Potassium (3.5-5.1) mmol/L Chloride (98-107) mmol/L Carbon Dioxide (22-29) mmol/L Anion Gap (5-19) BUN (6-20) mg/dL Creatinine (0.7-1.2) mg/dL GFR Calculation (90-130) mL/min Glucose (65-115) mg/dL Calculated Osmolal ity (285-295) mOsm/k g Calcium (8.5-10.5) mg/dL Total Bilirubin (0.15-1.2) mg/dL AST (0-40) U/L ALT (0-41) U/L Alkaline Phosphata se (40-130) IU/L Troponin T Baselin e 13 (0-15) ng/L Troponin T 120 Min [place] 12.02 (0-15) ng/L Delta Troponin T -0.98 L (0-10) ABS# Total Protein (6.6-8.7) g/dL Albumin (3.5-5.2) g/dL Globulin (1.3-4.6) g/dL Imaging Data^: CT Chest: Attestation: I personally reviewed and interpreted this imaging study as follows: Radiologist's impression: [place] [address] CT Scan Report Signed Patient: Dariel Peck Unit #: [id number] : 1960 Age/Sex: 59 / M ADM Date: 05/14/20 Loc: ER Room/Bed: Attending Dr: Ordering Provider/Ordering MD: Lázaro Rhodes DO Date of Service: 05/14/20 Procedure(s): CT angio chest PE protcl [id number] Accession Number(s): [id number] Report Number: [id number] PROCEDURE INFORMATION: Exam: CT Angiography Chest With Contrast Exam date and time: 05/14/2020 6:14 PM Age: 59 years old Clinical indication: Chest pain; Prior surgery; Additional info: Dyspnea TECHNIQUE: Imaging protocol: Computed tomographic angiography of the chest with intravenous contrast. 3D rendering: MIP and/or 3D reconstructed images were created by the technologist. Radiation optimization: All CT scans at this facility use at least one of these dose optimization techniques: automated exposure control; mA and/or kV adjustment per patient size (includes targeted exams where dose is matched to clinical indication); or iterative reconstruction. Contrast material: OMNI 350; Contrast volume: 80 ml; Contrast route: INTRAVENOUS (IV); COMPARISON: CR XR chest 1V portable [id number] 05/14/2020 4:34 PM RADIATION DOSE METRICS: Total DLP (mGy-cm): 714.53 FINDINGS: Pulmonary arteries: Normal. No pulmonary emboli. Aorta: Unremarkable. No aortic aneurysm. No aortic dissection. Lungs: Calcified granuloma in the left lower lobe. Mild atelectasis in the left lower lobe along the diaphragm. The lungs are otherwise clear. Small posterior right subpleural fatty deposition versus lipoma. Pleural space: Unremarkable. No pneumothorax. No pleural effusion. Heart: Normal size heart. No pericardial effusion. Lymph nodes: Subcentimeter right hilar lymph nodes are most likely reactive. Bones/joints: Unremarkable. No acute fracture. Soft tissues: Unremarkable. Other findings: Prominent right cardiophrenic fat pad. CT/CT angio chest PE protcl [id number] IMPRESSION: 1. No evidence for pulmonary embolus or other acute finding. 2. Mild left base atelectasis. Discharge Plan Discharge Patient Disposition: Home, Self-Care Clinical Impression: Dyspnea Qualifiers: Dyspnea type: dyspnea on exertion Qualified Code(s): R06.00 - Dyspnea, unspecified Condition: Stable Prescriptions: New prednisone 50 mg tablet 50 mg PO DAILY Qty: 5 RF: 0 Lasix 40 mg tablet 40 mg PO DAILY Qty: 30 RF: 0 No Action nitroglycerin [Nitrostat] 0.4 mg tablet, sublingual 0.4 mg SUBLINGUAL Q5M PRN (Reason: Chest Pain) RF: 0 warfarin 5 mg tablet 5 mg PO DIRECTED RF: 0 lovastatin 40 mg tablet 40 mg PO DAILY RF: 0 amlodipine 10 mg tablet 10 mg PO DAILY RF: 0 sotalol 80 mg tablet 80 mg PO DAILY RF: 0 losartan 50 mg tablet 50 mg PO DAILY RF: 0 furosemide 40 mg tablet 40 mg PO DAILY RF: 0 fluticasone propion-salmeterol 250-50 mcg/dose blister with device 1 inh INHALATION BID RF: 0 potassium chloride 10 mEq tablet extended release 10 meq PO DAILY RF: 0 meclizine 25 mg tablet 25 mg PO TID PRN (Reason: dizziness) Qty: 30 RF: 0 Discharge Orders: Discharge Order (Routine); Ordered 05/14/20 Ordered By: Weston Cordero Referrals: Giorgi Cortes MD [Primary Care Provider] - 1-3 days Discharge Diet: Advance as tolerated Discharge Activity: Resume usual activity Patient Instructions: Dyspnea (ED) Discharge Date/Time: 05/15/20 01:40 Coding Level of Care Code ED Medical Insurance Coding Specialist for [place] Fwd Exam Comprehensive
[2020-05-14 17:26] LABS: Troponin(5th) Baseline 13 ng/L (0-15)
[2020-05-14 17:29] LABS: Alanine Aminotransferase 30 U/L (0-41); Alkaline Phosphatase 110 IU/L (40-130); Aspartate Amino Transferase 25 U/L (0-40); Blood Urea Nitrogen 15 mg/dL (6-20); Calcium 9.8 mg/dL (8.5-10.5); Carbon Dioxide 27 mmol/L (22-29); Chloride 99 mmol/L (98-107); Globulin 2.9 g/dL (1.3-4.6); Glomerular Filtration Rate 76.7 mL/min (90-130); Glucose 102 mg/dL (65-115); Osmolality Calculated 286 mOsm/kg (285-295); Sodium 140 mmol/L (136-145); Total Bilirubin 0.6 mg/dL (0.15-1.2); Total Protein 7.9 g/dL (6.6-8.7)
--- NOTE | 2020-05-14 17:37 | CTR_ITS ---
PROCEDURE INFORMATION: Exam: CT Angiography Chest With Contrast Exam date and time: 05/14/2020 6:14 PM Age: 59 years old Clinical indication: Chest pain; Prior surgery; Additional info: Dyspnea TECHNIQUE: Imaging protocol: Computed tomographic angiography of the chest with intravenous contrast. 3D rendering: MIP and/or 3D reconstructed images were created by the technologist. Radiation optimization: All CT scans at this facility use at least one of these dose optimization techniques: automated exposure control; mA and/or kV adjustment per patient size (includes targeted exams where dose is matched to clinical indication); or iterative reconstruction. Contrast material: OMNI 350; Contrast volume: 80 ml; Contrast route: INTRAVENOUS (IV); COMPARISON: CR XR chest 1V portable [id number] 05/14/2020 4:34 PM RADIATION DOSE METRICS: Total DLP (mGy-cm): 714.53 FINDINGS: Pulmonary arteries: Normal. No pulmonary emboli. Aorta: Unremarkable. No aortic aneurysm. No aortic dissection. Lungs: Calcified granuloma in the left lower lobe. Mild atelectasis in the left lower lobe along the diaphragm. The lungs are otherwise clear. Small posterior right subpleural fatty deposition versus lipoma. Pleural space: Unremarkable. No pneumothorax. No pleural effusion. Heart: Normal size heart. No pericardial effusion. Lymph nodes: Subcentimeter right hilar lymph nodes are most likely reactive. Bones/joints: Unremarkable. No acute fracture. Soft tissues: Unremarkable. Other findings: Prominent right cardiophrenic fat pad. CT/CT angio chest PE protcl [id number] IMPRESSION: 1. No evidence for pulmonary embolus or other acute finding. 2. Mild left base atelectasis. Radiation Dose CTDIVOL = (mGy): DLP = 714.53 (mGy-cm)
--- NOTE | 2020-05-14 19:03 | ECG_ITS ---
[facility] Test Date: 2020-05-14 Pat Name: Dariel Peck Department: Room: Gender: Male Alterations Manager: : 1960 Requested By: Lázaro Robb Order Number: [id number] Brianna MD: Ailin Bai M.D. Measurements Intervals [place] Rate: 57 P: 48 [place]: 158 QRS: 114 QRSD: 106 T: 65 QT: 408 QTc: 399 Interpretive Statements SINUS BRADYCARDIA POSSIBLE LEFT ATRIAL ENLARGEMENT INCOMPLETE RIGHT BUNDLE BRANCH BLOCK POSSIBLE RIGHT VENTRICULAR HYPERTROPHY Compared to ECG 05/14/2020 17:29:01 Indeterminate axis no longer present Electronically Signed On 05-15-2020 21:05:05 CDT by Ailin Bai M.D. [email or web address] main [id number]
--- NOTE | 2020-05-14 19:10 | PC.NURSE ---
Patient report received from KRYSTAL Lemus and care transferred to KRYSTAL Cabrera
[2020-05-14] MEDS: iohexol 350 mg/mL 100 mL Btl IV (19:34)
[2020-05-14 19:52] LABS: Troponin 5 2HR 12.02 ng/L (0-15)
[2020-05-14 20:19] LABS: Troponin 5 2HR Delta -0.98 ABS# (0-10)
[2020-05-14] MEDS: morphine 4 mg/mL SDV 1 mL IVP (20:35)
[2020-05-14] MEDS: FUROsemide 10 mg/mL SDV 4mL 40 MG IVP (20:35)
[2020-05-14] MEDS: ondansetron 2 mg/ML SDV 2 mL 4 MG IVP (21:39)
[2020-05-15 01:00] VITALS: BP 159/84; PULSE 62; RESP 18; O2SAT 96
[2020-05-15] MEDS: LORazepam 1 mg Tablet PO (01:45)
[2020-05-15 01:47] VITALS: BP 165/93; PULSE 66; RESP 17; O2SAT 93
== END 2020-05-15 01:40 | disposition home or self-care (01) ==
PROVIDERS: Family Medicine; Physician Assistant; Emergency Provider Emergency Medicine; PCP Family Medicine
DX: R06.00 Dyspnea, unspecified (principal); Z79.01 Long term (current) use of anticoagulants; I48.91 Unspecified atrial fibrillation; I25.10 Atherosclerotic heart disease of native coronary artery without angina pectoris; I10 Essential (primary) hypertension; E78.5 Hyperlipidemia, unspecified; Z87.891 Personal history of nicotine dependence
CPT/HCPCS: 12345; 36415; 71045; 71275; 80053; 84484; 85025; 85610; 93005; 96374; 96375; 99283; 99284; J1940; J2270; J2405; Q9967

== ENCOUNTER 2020-05-19 07:33 | Emergency (ER) | payer SELFPAY ==
[2020-05-19] VITALS (7 sets, daily range): BP systolic 147–190; BP diastolic 77–106; PULSE 52–59; RESP 15–20; TEMP 36.6; O2SAT 95–98; BMI 41.8
--- NOTE | 2020-05-19 08:01 | CT_ITS ---
WS: [id number] CT ABDOMEN AND PELVIS WITH CONTRAST HISTORY: abd pain TECHNIQUE: Imaging performed of the abdomen and pelvis with IV contrast. Single phase imaging of the abdomen. Coronal and sagittal reformats are submitted. All CT scans at [facility] use at least one of these dose optimization techniques: automated exposure control; mA and/or kV adjustment per patient size (includes targeted exams where dose is matched to clinical indication); or iterativ e reconstruction. IV CONTRAST: Omnipaque 300; 95 mL IV. Oral contrast: No DLP: 1667.86 mGy.cm COMPARISON: 02/23/2019 Lower thorax: Mild dependent changes at the LEFT lung base. Mild cardiomegaly. No hiatal hernia. Liver/biliary system: Normal size with no intrahepatic dilatation. Gallbladder: Normally distended gallbladder with a single stone. No evidence for acute cholecystitis or bile duct dilatation. Pancreas: Normal. Spleen: Normal. Adrenal glands: Normal. Right kidney: Mild perinephric stranding with mild dilatation of the renal pelvis and RIGHT ureter. T here is a 5 mm calcification in the distal RIGHT ureter. No additional renal calcifications. Left kidney: Normal. Aorta: Mild atherosclerosis with no aneurysm. Lymphadenopathy: None. Free fluid: No free fluid. GI tract: No GI tract obstruction. There are a few scattered diverticula with no obstruction. No appe ndicitis. Abdominal wall: Defect in the anterior abdominal wall contains fat only. Pelvis: Nondistended urinary bladder. Prostate gland is enlarged with calcifications. Bones: Mild straightening of the normal lumbar lordosis. CT/CT abdomen pelvis w con* [id number] IMPRESSION: 1. Mild RIGHT hydroureteronephrosis secondary to a 5 mm calcification in the d istal ureter. 2. Sigmoid diverticulosis without diverticulitis. 3. No appendicitis.
--- NOTE | 2020-05-19 08:09 | W.ED.ABDPA2 ---
HPI - Abdominal Pain General: Chief Complaint: Abdominal Pain Stated Complaint: R SIDE PAIN Time Seen by Provider: 05/19/20 07:44 History of Present Illness: HPI narrative: 59 yo male with complaint of R flank pain radiating down to the groin woke him up this morning from sleep we had seen him a week ago for some respiratory issues that improved quite a bit after he was given steroids and antibiotics. He denies a history of nephrolithiasis he is not had any hematuria denies any fevers been very nauseous but not had any vomiting or diarrhea denies any GI blood losses that he is noticed recently. MD elicited complaint: abdominal pain Pertinent past history: none Onset (ago): hour(s) Pain Consistency: constant Location: R flank Severity: severe Quality: stabbing and sharp Radiation: suprapubic (Right groin) Exacerbating factors: nothing Relieving factors: medication Associated Symptoms: Reports anorexia, nausea and poor appetite; Denies chills, fever(s), hematochezia, hematuria, hematemesis, fecal incontinence, loose stools, melena and vomiting Review of Systems Const: Denies: fever(s), chills, body aches, change in appetite, fatigue or malaise ENMT: Denies: throat pain, ear or mastoid pain, nasal discharge or nasal congestion Card: Denies: chest pain, edema, dyspnea on exertion or orthopnea Resp: Denies: dyspnea, productive cough or non-productive cough GI: Reports: nausea; Denies: vomiting, hematemesis, fecal incontinence, hematochezia or melena : Denies: hematuria Skin/Breast: Denies: rash or pruritus PFSH ED PFSH: Medical History (Updated 05/19/20 @ 09:37 by Lázaro Rhodes DO) Atrial fibrillation CAD in [place] artery HTN (hypertension) Hyperlipidemia Ischemic cardiomyopathy SHENA (obstructive sleep apnea) Sensorineural hearing loss Surgical History (Updated 05/14/20 @ 17:26 by Lázaro Rhodes DO) S/P knee surgery S/P PTCA (percutaneous transluminal coronary angioplasty) Family History Mother Myocardial infarction Social History Smoking and tobacco status: former smoker Physical Exam Const: COMMON NORMALS: no acute distress GENERAL APPEARANCE: cooperative and comfortable ORIENTATION/CONSCIOUSNESS: Yes awake, Yes oriented to person, Yes oriented to place and Yes oriented to time HENMT: COMMON NORMALS: normocephalic, atraumatic, hearing grossly normal bilaterally, external ears normal, EAC's normal, TM's normal bilaterally, Normal nasal mucous membranes and turbinates present, moist oral mucous membranes and oropharynx normal HEAD & SCALP: normocephalic and atraumatic NOSE: Normal nasal mucous membranes and turbinates present EXTERNAL EAR: Yes external ears normal EXTERNAL AUDITORY CANAL: EAC's normal TYMPANIC MEMBRANE: TM's normal bilaterally Eye: COMMON NORMALS: Equal, round and reactive pupils present, EOMs intact bilaterally, conjunctivae normal and no scleral icterus CONJUNCTIVA: Yes conjunctivae normal PUPIL: Yes Equal, round and reactive pupils present Neck/C-Spine: COMMON NORMALS: full ROM, no lymphadenopathy, supple and no JVD Lymph: LYMPHATIC: no lymphadenopathy noted and no lymphedema noted Resp: COMMON NORMALS: normal respiratory effort, No retractions, No use of accessory muscles and clear to auscultation bilaterally AUSCULTATION: clear to auscultation bilaterally Cardio: COMMON NORMALS: no JVD, regular rate, regular rhythm and No murmurs present (Cardio) RATE: regular rate RHYTHM: regular rhythm GI: COMMON NORMALS: Soft to palpation and No hepatosplenomegaly present AUSCULTATION: Yes normoactive bowel sounds PALPATION: Yes Soft to palpation, No Tenderness to palpation present (GI), No Guarding due to palpation present (GI) and Yes No hepatosplenomegaly present Extremity: COMMON NORMALS: normal to inspection, capillary refill normal, no clubbing, cyanosis or edema, no calf tenderness and no pedal edema Neuro: SENSORIUM/ORIENTATION: Yes oriented to person, Yes oriented to place and Yes oriented to time Skin: COMMON NORMALS: no rashes or lesions noted GENERAL SKIN EXAM: no rashes or lesions noted Course Vital Signs: Vital signs: Vital Signs Temperature 97.9 F 05/19/20 07:45 Pulse Rate 56 L 05/19/20 10:13 Respiratory Rate 20 H 05/19/20 10:13 Blood Pressure 147/77 05/19/20 10:13 Pulse Oximetry 96 05/19/20 10:13 MDM - Abdominal Pain MDM Narrative: Medical decision making narrative: CT shows right nephrolithiasis. Start on tamsulosin pain medications will discharge home follow-up with Dr. Ayla yuan urine return stone to the lab for pathology of his able to retrieve. Return if has further problems. White count elevated felt that is secondary to prednisone he was started on recently. Lab Data: Labs: Lab Results 05/19/20 05/19/20 05/19/20 Range/Units 08:06 08:06 08:06 WBC 17.3 H (4.0-10.0) 10^3/ uL RBC 5.89 H (4.1-5.3) 10^6/u L Hgb 16.2 (11.7-16.6) g/dL Hct 51.0 (42.0-52.0) % MCV 86.6 (80-94) fL MCH 27.5 L (28.0-34.0) pg MCHC 31.8 (30.0-36.0) g/dL RDW 13.2 (12.1-15.1) % Plt Count 320 (130-400) 10^3/c mm MPV 10.2 (7.4-10.4) fL Neut % (Auto) 89.3 % Lymph % (Auto) 5.0 % [place] % (Auto) 5.2 % Eos % (Auto) 0.0 % Baso % (Auto) 0.1 % Neut # (Auto) 15.5 H (1.8-7.7) 10^3/u L Lymph # (Auto) 0.9 (0.8-4.8) 10^3/u L [place] # (Auto) 0.9 (0.2-0.9) 10^3/u L Eos # (Auto) 0.0 (0.0-0.8) 10^3/u L Baso # (Auto) 0.0 (0.0-0.1) 10^3/u L Nucleated RBC % (a uto) 0 % Nucleated RBCs # 0.0 /100WBC PT (10.5-13.3) SECO NDS INR (0.8-1.2) Sodium 137 (136-145) mmol/L Potassium 4.3 (3.5-5.1) mmol/L Chloride 97 L (98-107) mmol/L Carbon Dioxide 27 (22-29) mmol/L Anion Gap 17.3 (5-19) BUN 16 (6-20) mg/dL Creatinine 1.3 H (0.7-1.2) mg/dL GFR Calculation 56.7 L (90-130) mL/min Glucose 160 H (65-115) mg/dL Calculated Osmolal ity 284 L (285-295) mOsm/k g Lactate 2.3 H (0.5-2.2) mmol/L Calcium 9.7 (8.5-10.5) mg/dL Total Bilirubin 0.4 (0.15-1.2) mg/dL AST 17 (0-40) U/L ALT 31 (0-41) U/L Alkaline Phosphata se 97 (40-130) IU/L Total Protein 8.1 (6.6-8.7) g/dL Albumin 4.5 (3.5-5.2) g/dL Globulin 3.6 (1.3-4.6) g/dL Lipase 57 (13-60) U/L Urine Color (Yellow) Urine Appearance (CLEAR) Urine pH (5-7) Ur Specific Gravit y (1.005-1.030) Urine Protein (Negative) Urine Glucose (UA) (Normal) Urine Ketones (Negative) Urine Blood (Negative) Urine Nitrate (Negative) Urine Bilirubin (NEGATIVE) Urine Urobilinogen (Negative) mg/dL Ur Leukocyte Shelli ase (Negative) Urine RBC (0-2) /hpf Urine WBC (0-5) /hpf Ur Squamous Epith Cells (0-5) Calcium Oxalate Cr ystal /hpf Amorphous Sediment Urine Bacteria (NONE) Urine Mucus 05/19/20 05/19/20 Range/Units 08:06 09:09 WBC (4.0-10.0) 10^3/ uL RBC (4.1-5.3) 10^6/u L Hgb (11.7-16.6) g/dL Hct (42.0-52.0) % MCV (80-94) fL MCH (28.0-34.0) pg MCHC (30.0-36.0) g/dL RDW (12.1-15.1) % Plt Count (130-400) 10^3/c mm MPV (7.4-10.4) fL Neut % (Auto) % Lymph % (Auto) % [place] % (Auto) % Eos % (Auto) % Baso % (Auto) % Neut # (Auto) (1.8-7.7) 10^3/u L Lymph # (Auto) (0.8-4.8) 10^3/u L [place] # (Auto) (0.2-0.9) 10^3/u L Eos # (Auto) (0.0-0.8) 10^3/u L Baso # (Auto) (0.0-0.1) 10^3/u L Nucleated RBC % (a uto) % Nucleated RBCs # /100WBC PT 30.20 H (10.5-13.3) SECO NDS INR 2.76 H (0.8-1.2) Sodium (136-145) mmol/L Potassium (3.5-5.1) mmol/L Chloride (98-107) mmol/L Carbon Dioxide (22-29) mmol/L Anion Gap (5-19) BUN (6-20) mg/dL Creatinine (0.7-1.2) mg/dL GFR Calculation (90-130) mL/min Glucose (65-115) mg/dL Calculated Osmolal ity (285-295) mOsm/k g Lactate (0.5-2.2) mmol/L Calcium (8.5-10.5) mg/dL Total Bilirubin (0.15-1.2) mg/dL AST (0-40) U/L ALT (0-41) U/L Alkaline Phosphata se (40-130) IU/L Total Protein (6.6-8.7) g/dL Albumin (3.5-5.2) g/dL Globulin (1.3-4.6) g/dL Lipase (13-60) U/L Urine Color Yellow (Yellow) Urine Appearance Clear (CLEAR) Urine pH 6 (5-7) Ur Specific Gravit y 1.020 (1.005-1.030) Urine Protein Neg (Negative) Urine Glucose (UA) Trace H (Normal) Urine Ketones Negative (Negative) Urine Blood 3+ H (Negative) Urine Nitrate Negative (Negative) Urine Bilirubin Neg (NEGATIVE) Urine Urobilinogen 1 H (Negative) mg/dL Ur Leukocyte Shelli ase Negative (Negative) Urine RBC 10-15 H (0-2) /hpf Urine WBC Rare (0-5) /hpf Ur Squamous Epith Cells 5-10 H (0-5) Calcium Oxalate Cr ystal 0-4 H /hpf Amorphous Sediment Not Reportable Urine Bacteria Trace (NONE) Urine Mucus 1+ Discharge Plan Discharge Patient Disposition: Home, Self-Care Clinical Impression: Calculus of kidney Condition: Stable Prescriptions: New hydrocodone-acetaminophen 5-325 mg tablet 1 tab PO Q6H PRN (Reason: pain) Qty: 25 RF: 0 Zofran 4 mg tablet 4 mg PO Q6H PRN (Reason: nausea and vomiting) Qty: 20 RF: 0 tamsulosin 0.4 mg capsule 0.4 mg PO DAILY Qty: 20 RF: 0 No Action nitroglycerin [Nitrostat] 0.4 mg tablet, sublingual 0.4 mg SUBLINGUAL Q5M PRN (Reason: Chest Pain) RF: 0 warfarin 5 mg tablet 5 mg PO DIRECTED RF: 0 lovastatin 40 mg tablet 40 mg PO DAILY RF: 0 amlodipine 10 mg tablet 10 mg PO DAILY RF: 0 sotalol 80 mg tablet 40 mg PO BID RF: 0 furosemide 40 mg tablet 40 mg PO DAILY PRN (Reason: SWELLING) RF: 0 fluticasone propion-salmeterol 250-50 mcg/dose blister with device 1 inh INHALATION BID RF: 0 potassium chloride 10 mEq tablet extended release 10 meq PO DAILY PRN (Reason: WITH LASIX) RF: 0 prednisone 50 mg tablet 50 mg PO DAILY Qty: 5 RF: 0 meclizine 25 mg tablet 25 mg PO TID PRN (Reason: dizziness) Qty: 30 RF: 0 Discharge Orders: Discharge Order (Routine); Ordered 05/19/20 Ordered By: Lázaro Rhodes Referrals: Ángel Aguila MD [Physician] - (Follow-up on right renal calculi) Activity Restrictions/Additional Instructions: Strain urine follow-up with Dr. 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
--- NOTE | 2020-05-19 08:12 | PC.NURSE ---
patient transported to CT scan via stretcher by [employer].
[2020-05-19 08:19] LABS: Basophils % 0.1 %; Hemoglobin 16.2 g/dL (11.7-16.6); Lymphocytes # 0.9 10^3/uL (0.8-4.8); Mean Corpuscular HGB Conc 31.8 g/dL (30.0-36.0); Mean Corpuscular Hemoglobin 27.5 pg (28.0-34.0); Mean Corpuscular Volume 86.6 fL (80-94); Mean Platelet Volume 10.2 fL (7.4-10.4); Monocytes # 0.9 10^3/uL (0.2-0.9); Monocytes % 5.2 %; Neutrophils # 15.5 10^3/uL (1.8-7.7); Neutrophils % 89.3 %; Nucleated Red Blood Cells % 0 %; Platelet Count 320 10^3/cmm (130-400); Red Blood Count 5.89 10^6/uL (4.1-5.3); Red Cell Distribution Width 13.2 % (12.1-15.1); White Blood Count 17.3 10^3/uL (4.0-10.0)
[2020-05-19] MEDS: iohexol 300 mg/mL 100 mL Btl IV (08:20)
[2020-05-19 08:24] LABS: INR 2.76 (0.8-1.2)
--- NOTE | 2020-05-19 08:26 | PC.NURSE ---
patient back in room from CT scan. ED physician at bedside. urinal was given to patient. patient instructed that urine sample was needed.
[2020-05-19 08:34] LABS: Alanine Aminotransferase 31 U/L (0-41); Albumin Level 4.5 g/dL (3.5-5.2); Alkaline Phosphatase 97 IU/L (40-130); Anion Gap 17.3 (5-19); Aspartate Amino Transferase 17 U/L (0-40); Blood Urea Nitrogen 16 mg/dL (6-20); Calcium 9.7 mg/dL (8.5-10.5); Carbon Dioxide 27 mmol/L (22-29); Chloride 97 mmol/L (98-107); Globulin 3.6 g/dL (1.3-4.6); Glomerular Filtration Rate 56.7 mL/min (90-130); Glucose 160 mg/dL (65-115); Lipase 57 U/L (13-60); Osmolality Calculated 284 mOsm/kg (285-295); Potassium 4.3 mmol/L (3.5-5.1); Sodium 137 mmol/L (136-145); Total Bilirubin 0.4 mg/dL (0.15-1.2); Total Protein 8.1 g/dL (6.6-8.7)
[2020-05-19 08:35] LABS: Lactate (Lactic Acid level) 2.3 mmol/L (0.5-2.2)
[2020-05-19] MEDS: ondansetron 2 mg/ML SDV 2 mL 4 MG IVP (09:07)
[2020-05-19] MEDS: HYDROmorphone 1 mg/mL INJ 1 mL 0.5 MG IVP (09:08)
[2020-05-19] MEDS: sodium chloride 0.9% 500 ML IV (09:34)
[2020-05-19 10:00] LABS: Add Urine Microscopic? YES; Bilirubin Urine Neg (NEGATIVE); Blood Urine 3+ (Negative); Glucose Urine UA Trace (Normal); Ketones Urine Negative (Negative); Leukocyte Esterase Urine Negative (Negative); Nitrate Urine Negative (Negative); Protein Urine Neg (Negative); Urine Appearance Clear (CLEAR); Urine Color Yellow (Yellow); Urobilinogen Urine 1 mg/dL (Negative); pH Urine 6 (5-7)
[2020-05-19 10:01] LABS: Add Urine Culture? No; Bacteria Urine TRACE; Calcium Oxalate Crystals Urine 0-4 /hpf; Mucus Urine 1+; WBC Urine RARE /hpf (0-5)
--- NOTE | 2020-05-19 10:27 | DCPLANNER ---
process development manager had message to schedule a follow up appointment for patient with Dr. Aguila. process development manager called the office of Dr. Aguila, spoke with Kacy. process development manager gave clinic patients appointment information, was told that patients information would be printed and reviewed. Clinic will call patient with appointment information.
--- NOTE | 2020-05-20 08:18 | DCPLANNER ---
Addendum entered by Isabel Fields 05/22/20 11:03: Kacy from Dr. Ortega office called insurance case manager and informed insurance case manager that clinic has not been able to reach patient to confirm appointment information, no appointment has been scheduled at this time. manager simulation was unable to reach patient at this time to speak with patient about appointment. No appointment scheduled at this time. Original Note: Patient has a follow up appointment scheduled for Wednesday, May 20, 2020 at 1:[address] Aguila. Clinic will call patient with appointment information.
== END 2020-05-19 10:15 | disposition home or self-care (01) ==
PROVIDERS: Emergency Provider Family Medicine; PCP Family Medicine
DX: N20.0 Calculus of kidney (principal); Z79.01 Long term (current) use of anticoagulants; I48.91 Unspecified atrial fibrillation; I25.10 Atherosclerotic heart disease of native coronary artery without angina pectoris; I10 Essential (primary) hypertension; E78.5 Hyperlipidemia, unspecified; Z87.891 Personal history of nicotine dependence
CPT/HCPCS: 12345; 74177; 80053; 81001; 81003; 83605; 83690; 85025; 85610; 96360; 96361; 96374; 96375; 96376; 99283; 99284; J1170; J2405; J7040; Q9967

== ENCOUNTER 2020-06-13 13:09 | Outpatient (CLI) | payer SELFPAY ==
--- NOTE | 2020-06-13 13:30 | USCV_ITS ---
Dariel Peck Age: 59 Gender: M : 1960 Exam Date: 06/13/2020 13:59 Ordering Phys: Jez Jones MD Technologist: Alda Hayden Exam Location: [facility] [place] Indication: heart failure BP: 160 / 82 HR: 54 Rhythm: Sinus Technical Quality: Suboptimal MEASUREMENTS (Male / Female) Normal Values 2D ECHO LV Diastolic Diameter PLAX 4.4 cm 4.2 - 5.9 / 3.9 - 5.3 cm LV Systolic Diameter PLAX 3.3 cm LV Chamber Size 3.0 cm IVS Diastolic Thickness 2.0 cm 0.6 - 1.0 / 0.6 - 0.9 cm IVS Systolic Thickness 2.5 cm LVPW Diastolic Thickness 2.0 cm 0.6 - 1.0 / 0.6 - 0.9 cm LVPW Systolic Thickness 2.6 cm RV Chamber Size 3.5 cm LVOT Diameter 2.1 cm LV Ejection Fraction 2D Teich 49.4 % LV Ejection Fraction MOD 2C 66.9 % LV Ejection Fraction 2C AL 63.7 % LA Diameter 5.2 cm LA Width 3.2 cm LA Height 3.8 cm RA Width 2.7 cm RA Height 4.0 cm Aorta at Sinotubular Diameter 2.5 cm M-MODE LV Diastolic Diameter MM 4.6 cm 4.2 - 5.9 / 3.9 - 5.3 cm LV Systolic Diameter MM 3.2 cm LV Ejection Fraction MM Teich 57.5 % IVS Diastolic Thickness MM 1.4 cm 0.6 - 1.0 / 0.6 - 0.9 cm IVS Systolic Thickness MM 1.6 cm LVPW Diastolic Thickness MM 1.5 cm 0.6 - 1.0 / 0.6 - 0.9 cm LVPW Systolic Thickness MM 2.4 cm Aortic Annulus Diameter 2.9 cm LA Ao Ratio MM 1.8 MV E Point Septal Separation 1.3 cm DOPPLER AV Peak Velocity 162.0 cm/s LVOT Peak Velocity 97.0 cm/s AV Area Cont Eq vti 1.3 cm squared AV Area Cont Eq pk 2.0 cm squared MV Area PHT 3.3 cm squared Mitral E to A Ratio 1.2 MV E' Velocity 11.0 cm/s Mitral E to MV E' Ratio 8.6 Mitral E to LV E' Lateral Ratio 8.5 Mitral E to LV E' Septal Ratio 8.7 TR Peak Velocity 229.0 cm/s TR Peak Gradient 21.0 mmHg TV Peak E Velocity 63.0 cm/s Right Atrial Pressure 3.0 mmHg Pulmonary Artery Systolic Pressu 24.0 mmHg PV Peak Velocity 97.0 cm/s RV Acceleration Time 0.2 s RV Ejection Time 0.4 s RV AcT/ET 0.5 FINDINGS Left Ventricle Normal left ventricular size and systolic function, EF 63 %. No regional wall motion abnormalities. Right Ventricle The right ventricle is normal in size and function. Right Atrium The right atrium is normal in size. Left Atrium Mildly increased left atrial size. Mitral Valve No gross abnormalities noted Aortic Valve Thickened aortic valve. Tricuspid Valve No gross abnormalities noted . Pulmonic Valve Structurally normal pulmonic valve without significant stenosis. There is no pulmonic regurgitation. Pericardium Normal pericardium without effusion. Aorta Normal ascending aorta dimension. CONCLUSIONS Normal left ventricular size and systolic function, EF 63 %. No regional wall motion abnormalities. Thickened aortic valve. No significant stenotic or regurgitant lesions. There is no pericardial effusion. There are no intracardiac masses. No previous study is available for comparison. Dr Peyton Gordillo MD FACC (Electronically Signed) Final Date: 13 June 2020 20:46 S
== END 2020-06-13 13:10 | disposition home or self-care (01) ==
LOC: US 13:09
PROVIDERS: PCP Family Medicine; Visit Provider Internal Medicine Critical Care Medicine
DX: I50.9 Heart failure, unspecified (principal); I35.8 Other nonrheumatic aortic valve disorders
CPT/HCPCS: 93306

== ENCOUNTER → 2020-07-04 10:48 | Outpatient (BNVA) | payer OTHER, SELFPAY | PROVIDERS: PCP Family Medicine; Visit Provider Internal Medicine | DX: R06.02 Shortness of breath (principal); Z20.828 Contact with and (suspected) exposure to other viral communicable diseases | CPT/HCPCS: 87635 ==

== ENCOUNTER 2020-07-08 07:57 | Outpatient (CLI) | payer SELFPAY ==
--- NOTE | 2020-07-08 13:14 | PFTS_ITS ---
Date of Study:07/08/20 Date of Dictation: MECHANICS: Forced vital capacity (FVC) is reduced. Forced expiratory volume in one second (FEV1) is reduced. FEV1/FVC is normal. FLOW VOLUME LOOP: Narrow. LUNG VOLUMES: Total lung capacity (TLC) is reduced. Residual volume (RV) is normal. DIFFUSING CAPACITY FOR CARBON MONOXIDE: Normal. INTERPRETATION: The pulmonary function tests are consistent with moderately severe restriction. The total lung capacity is better preserved compared to the forced vital capacity. With relatively preserved residual volume, this raises the concern for a combined obstructive and restrictive defect. Lung volumes are consistent with restriction. Gas exchange (DLCO) is normal. The preserved gas exchange goes against an intrinsic lung defect. MTDD
== END 2020-07-08 07:58 | disposition home or self-care (01) ==
LOC: RT 07:58
PROVIDERS: PCP Family Medicine; Visit Provider Internal Medicine Critical Care Medicine
DX: R06.02 Shortness of breath (principal)
CPT/HCPCS: 94010; 94726; 94729

== ENCOUNTER → 2020-08-13 13:38 | Outpatient (BNVA) | payer SELFPAY | PROVIDERS: PCP Family Medicine; Visit Provider Internal Medicine Cardiovascular Disease | DX: I48.91 Unspecified atrial fibrillation (principal); I50.32 Chronic diastolic (congestive) heart failure; G47.33 Obstructive sleep apnea (adult) (pediatric); R06.02 Shortness of breath; I48.19 Other persistent atrial fibrillation; I77.9 Disorder of arteries and arterioles, unspecified; I25.5 Ischemic cardiomyopathy | CPT/HCPCS: 85610 ==

== ENCOUNTER → 2020-08-19 10:08 | Outpatient (BNVA) | payer OTHER, SELFPAY | PROVIDERS: PCP Family Medicine; Visit Provider Nurse Practitioner Family | DX: Z11.59 Encounter for screening for other viral diseases (principal); J06.9 Acute upper respiratory infection, unspecified; Z20.828 Contact with and (suspected) exposure to other viral communicable diseases | CPT/HCPCS: 87635 ==

== ENCOUNTER 2020-08-25 18:23 | Emergency (ER) | payer OTHER, SELFPAY ==
[2020-08-25 18:36] VITALS: BP 178/98; PULSE 71; RESP 18; TEMP 37.1; O2SAT 96; BMI 40.1
--- NOTE | 2020-08-25 18:41 | XRR_ITS ---
PROCEDURE INFORMATION: Exam: XR Chest, 1 View Exam date and time: 08/25/2020 6:58 PM Age: 60 years old Clinical indication: Prior surgery; Surgery type: Stents; Patient HX: Cough, SOB, thrush, covid+ 9 or 10 days ago TECHNIQUE: Imaging protocol: XR of the chest Views: 1 view. COMPARISON: CR XR chest 1V portable [id number] 05/14/2020 4:34 PM FINDINGS: Lungs: Subtle peripheral airspace disease in the left mid lung and left lower lobe suggested. Possible superimposition of structures. Lungs are otherwise well aerated. Pleural space: Unremarkable. No pleural effusion. No pneumothorax. Heart/Mediastinum: Unremarkable. No cardiomegaly. Bones/joints: Unremarkable. XR/XR chest 1V portable [id number] IMPRESSION: Subtle peripheral airspace disease in the left mid lung and left lower lobe suggested. Possible superimposition of structures. Lungs are otherwise well aerated. Consider CT chest if indicated
[2020-08-25 18:42] VITALS: O2SAT 96
--- NOTE | 2020-08-25 18:49 | ED_ITS ---
HPI - COVID General: Chief Complaint: COVID symptoms Stated Complaint: COVID+/ Possible PNE Time Seen by Provider: 08/25/20 18:49 Triage information: Has fever, cough or shortness of breath . Exposure to COVID + person last 14 days History of Present Illness: HPI Narrative: Patient is a 60-year-old male who comes to the ED with cough, shortness of breath and sore throat. Patient tested positive for Covid on 08/19. He has been doing self quarantine for the past 10 days. Patient says his cough is dry and occasionally productive. His temperature has only been as high as 99 degrees. He states he does have mild sore throat. He states that he sometimes gets short of breath after having a coughing spell. He has an appointment with his controls engineer early September to do some further outpatient testing. Patient says he has advair and albuterol rescue inhaler at home. MD complaint: known COVID positive COVID 19 common symptoms: positive non-productive cough, dyspnea and throat pain; negative fever(s), chills, productive cough, fatigue, headache(s), nasal congestion, nausea, vomiting or diarrhea COVID 19 other sytmptoms: negative chest pain COVID Results: SARS-CoV-2 RNA (RT-PCR) Detected (NOT DETECTED) A 08/19/20 10:08 08/19/20 Nasal/Oral Coronavirus 2019 PCR Negative 07/04/20 10:48 07/04/20 Review of Systems Const: Denies: fever(s), chills or fatigue Eyes: Denies: change in vision or eye discomfort ENMT: Reports: throat pain; Denies: odynophagia, nasal discharge or nasal congestion Card: Denies: chest pain, palpitations, edema, swelling of feet/ankles, dyspnea on exertion or orthopnea Resp: Reports: dyspnea and non-productive cough; Denies: productive cough GI: Denies: abdominal pain, nausea, vomiting, diarrhea, constipation or hematochezia : Denies: flank pain, difficulty urinating, dysuria or hematuria Musc: Denies: neck pain, back pain or extremity swelling Skin/Breast: Denies: rash or new lesions Neuro: Denies: headache(s), numbness in extremities or weakness in extremities PFS ED PFSH: Medical History Atrial fibrillation CAD in [place] artery HTN (hypertension) Hyperlipidemia Ischemic cardiomyopathy SHENA (obstructive sleep apnea) Sensorineural hearing loss Surgical History S/P knee surgery S/P PTCA (percutaneous transluminal coronary angioplasty) Family History Mother Myocardial infarction Social History Smoking and tobacco status: former smoker Quit status (tobacco): has quit using tobacco Year quit tobacco: 1979 - 0.5 PPD x 3 Years Second hand smoke exposure: Yes Alcohol intake: former Lives independently: Yes Household members: significant other Marital status: Life Partner Current occupational status: employed 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 Current occupational exposures/hazards: No History of recent travel: No Current gender identity: Male Physical Exam Const: COMMON NORMALS: no acute distress, patient oriented x3 and alert GENERAL APPEARANCE: cooperative and comfortable HENMT: COMMON NORMALS: normocephalic HEAD & SCALP: normocephalic MOUTH: Normal oral and palatal mucosa present THROAT: posterior oropharynx normal and uvula midline Eye: COMMON NORMALS: Equal, round and reactive pupils present PUPIL: Yes Equal, round and reactive pupils present Neck/C-Spine: COMMON NORMALS: supple GENERAL: Yes normal visual inspection Resp: COMMON NORMALS: normal respiratory effort, No retractions, No use of accessory muscles and clear to auscultation bilaterally EFFORT & INSPECTION: Yes able to speak in complete sentences, No tachypneic and No labored AUSCULTATION: clear to auscultation bilaterally Cardio: COMMON NORMALS: regular rate, regular rhythm, S1 normal heart sound present, S2 normal heart sound present, No gallops present (Cardio), No clicks present (Cardio), No murmurs present (Cardio) and Peripheral pulses 2+ throughout RATE: regular rate RHYTHM: regular rhythm HEART SOUNDS: S1 normal heart sound present and S2 normal heart sound present PERIPHERAL PULSES: Peripheral pulses 2+ throughout GI: COMMON NORMALS: Normal to inspection, nondistended, normoactive bowel sounds present, Soft to palpation, non-tender and no masses PALPATION: Yes Soft to palpation : COMMON NORMALS: Yes no CVA tenderness BLADDER/KIDNEY EXAM: Yes no CVA tenderness Back/Pelvis: COMMON NORMALS: no CVA tenderness Extremity: COMMON NORMALS: normal to inspection and no pedal edema Neuro: COMMON NORMALS: patient oriented x3 and moves all extremities SENSORIUM/ORIENTATION: Yes alert Skin: COMMON NORMALS: no rashes or lesions noted GENERAL SKIN EXAM: no rashes or lesions noted and dry skin Course ED course: Patient is a 60-year-old male who comes to the ED with upper respiratory symptoms. Patient was diagnosed with COVID-19 on August 19 and has been self quarantine since. Patient has albuterol and Advair inhaler at home. Lungs were clear to auscultation bilaterally patient's vitals were stable with O2 saturation 98% on room air. Blood pressure 158/78, pulse 92, respirations 18 and 98.8 Fahrenheit. Chest x-ray shows possible pneumonia developing in the right left lower lobe. Patient was given a dose of IM Solu-Medrol and 500 mg of azithromycin. He was told to continue self quarantine and to use his at home inhalers as prescribed. He was discharged with prednisone and azithromycin. Return to ED precautions given. Follow-up with PCP in 7 to 10 days. Patient understood and agreed with plan. Vital Signs: Vital signs: Vital Signs Temperature 98.8 F 08/25/20 18:36 Pulse Rate 92 08/25/20 20:28 Respiratory Rate 18 08/25/20 20:28 Blood Pressure 158/78 08/25/20 20:28 Pulse Oximetry 98 08/25/20 20:28 MDM - COVID Lab Data COVID Results: SARS-CoV-2 RNA (RT-PCR) Detected (NOT DETECTED) A 08/19/20 10:08 08/19/20 Nasal/Oral Coronavirus 2019 PCR Negative 07/04/20 10:48 07/04/20 Imaging Data CXR: Attestation: I personally reviewed and interpreted this imaging study as follows: My impression: Chest x-ray showed possible pneumonia developing in the right and left lower lobe. Discharge Plan Discharge Patient Disposition: Home Clinical Impression: COVID-19 virus detected Pneumonia Qualifiers: Pneumonia type: due to unspecified organism Laterality: left Lung location: lower lobe of lung Qualified Code(s): J18.9 - Pneumonia, unspecified organism Condition: Stable Prescriptions: New prednisone 20 mg tablet 20 mg PO TID 5 Days Qty: 15 RF: 0 azithromycin 250 mg tablet 250 mg PO DAILY 4 Days Qty: 4 RF: 0 No Action sotalol [Sotalol AF] 80 mg tablet 80 mg PO DIRECTED Qty: 135 RF: 3 nitroglycerin [Nitrostat] 0.4 mg tablet, sublingual 0.4 mg SUBLINGUAL Q5M PRN (Reason: Chest Pain) RF: 0 warfarin 5 mg tablet 5 mg PO DIRECTED RF: 0 lovastatin 40 mg tablet 40 mg PO DAILY RF: 0 amlodipine 10 mg tablet 10 mg PO DAILY RF: 0 Advair HFA 115-21 mcg/actuation HFA aerosol inhaler 2 puff INHALATION BID 30 Days Qty: 8 RF: 6 valsartan 80 mg tablet 80 mg PO DAILY Qty: 90 RF: 3 potassium chloride 10 mEq tablet extended release 10 meq PO DAILY PRN (Reason: WITH LASIX) RF: 0 furosemide 40 mg tablet 40 mg PO DAILY RF: 0 hydrocodone-acetaminophen 5-325 mg tablet 1 tab PO Q6H PRN (Reason: pain) Qty: 25 RF: 0 meclizine 25 mg tablet 25 mg PO TID PRN (Reason: dizziness) Qty: 30 RF: 0 Discharge Orders: Discharge Order (Routine); Ordered 08/25/20 Ordered By: Giorgi Gama Referrals: Giorgi Cortes MD [Primary Care Provider] - Discharge Diet: Regular Discharge Activity: Increase activity as tolerated Patient Instructions: Pneumonia (ED) Activity Restrictions/Additional Instructions: Follow-up with medical provider as directed in 5-7 days for reevaluation Take medications as prescribed. Start taking both antibiotic and prednisone tomorrow. Continue using previously prescribed inhalers. Return to the ER or your medical provider if condition worsens. Please read and understand discharge instructions. If any questions, please ask. 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
[2020-08-25 20:28] VITALS: BP 158/78; PULSE 92; RESP 18; O2SAT 98
[2020-08-25] MEDS: azithromycin 250 mg Tablet 500 MG PO (20:28)
== END 2020-08-25 20:29 | disposition home or self-care (01) ==
PROVIDERS: Emergency Provider Physician Assistant; PCP Family Medicine
DX: U07.1 COVID-19 (principal); J12.89 Other viral pneumonia; Z79.01 Long term (current) use of anticoagulants; I48.91 Unspecified atrial fibrillation; I25.10 Atherosclerotic heart disease of native coronary artery without angina pectoris; I10 Essential (primary) hypertension; E78.5 Hyperlipidemia, unspecified; Z87.891 Personal history of nicotine dependence
CPT/HCPCS: 12345; 71045; 96372; 99282; 99283; J2930; Q0144

== ENCOUNTER 2020-08-28 14:27 | Emergency (ER) | payer OTHER, SELFPAY ==
[2020-08-28 15:05] VITALS: BP 130/78; PULSE 58; RESP 18; TEMP 36.6; O2SAT 98; BMI 39.9
--- NOTE | 2020-08-28 15:24 | XR_ITS ---
WS: [id number] Portable AP upright chest, 08/28/2020 Clinical Data: COVID+ Comparison: Portable chest, 08/25/2020. Findings: No nodules, masses or effusions are seen. The heart is enlarged. The pulmonary vascularity is not increased. No pneumothorax is seen. The patchy peripheral opacities in the left lung remain th e same. There is an opacity obscuring the left costophrenic angle. There is minimal linear atelectasi s in the midportion of the right lung. XR/XR chest 1V portable [id number] Impression: 1. No change in peripheral opacities in the left lung and left costophrenic ang le. 2. Cardiomegaly.
--- NOTE | 2020-08-28 18:11 | ED_ITS ---
HPI - SOB/Dyspnea General: Chief Complaint: Shortness of Breath/Dyspnea Stated Complaint: Covid + Time Seen by Provider: 08/28/20 17:51 History of Present Illness: HPI Narrative: 60-year-old male patient presents to the emergency department with cough congestion. He was seen in the emergency department 08/25/2020, tested positive for Covid. He reports today is his 12th day with symptoms. He was placed on prednisone, azithromycin. Has been monitoring his oxygen saturation at home with O2 saturation 96 to 97%. He reports concerned that he is not improving. He reports feels his cough is worsening. States he is currently on Coumadin and has night had INR tested in 3 weeks. He also states has not utilize Lasix and is questioning his kidney function. He is also complaining of a rash that started yesterday. Remains on azithromycin. States rash is localized to the back and underneath the axilla. Reports is itchy at times. Associated symptoms: Reports chest congestion and fever(s); Deny abdominal pain, chest pain, diaphoresis, nausea, palpitations or vomiting Review of Systems General: Reports: 10 or more systems reviewed and unremarkable except in HPI and below Const: Reports: fever(s), chills, body aches, fatigue and malaise; Denies: diaphoresis Eyes: Denies: blurry vision or eye redness ENMT: Denies: throat pain, dental pain or disequilibrium Card: Denies: chest pain, palpitations, irregular heart rhythm or swelling of feet/ankles Resp: Reports: productive cough (yellow), change in phlegm color and chest congestion; Denies: dyspnea, non-productive cough or wheezing GI: Denies: abdominal pain, nausea or vomiting : Denies: dysuria Musc: Denies: back pain Skin/Breast: Denies: rash or pruritus Neuro: Denies: headache(s), weakness in extremities or behavioral changes Temo/Lymph: Denies: easy bruising PFSH ED PFSH: Medical History (Updated 08/28/20 @ 18:59 by ZACKARY Brown) Atrial fibrillation CAD in [place] artery HTN (hypertension) Hyperlipidemia Ischemic cardiomyopathy SHENA (obstructive sleep apnea) Sensorineural hearing loss Surgical History S/P knee surgery S/P PTCA (percutaneous transluminal coronary angioplasty) Family History Mother Myocardial infarction Social History Smoking and tobacco status: former smoker Quit status (tobacco): has quit using tobacco Year quit tobacco: 1979 - 0.5 PPD x 3 Years Second hand smoke exposure: Yes Alcohol intake: former Lives independently: Yes Household members: significant other Marital status: Life Partner Current occupational status: employed 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 Current occupational exposures/hazards: No History of recent travel: No Current gender identity: Male Physical Exam Const: COMMON NORMALS: no acute distress, patient oriented x3, healthy appearing, alert and well nourished GENERAL APPEARANCE: cooperative, comfort able, well kempt and well hydrated; not ill appearing and not frail appearing NUTRITIONAL APPEARANCE: obese O RIENTATION/CONSCIOUSNESS: Yes awake, Yes oriented to person, Yes oriented to place and Yes oriented to time HENMT: COMMON NORMALS: normocephalic, Normal external nose present and moist oral mucous membranes HEAD & SCALP: normocephalic NOSE: Normal external nose present Eye: COMMON NORMALS: Equal, round and reactive pupils present and EOMs intact bilaterally GENERAL EYE: appearance normal, both eyes and all related structures PUPIL: Yes Equal, round and reactive pupils present Neck/C-Spine: COMMON NORMALS: full ROM and no lymphadenopathy GENERAL: Yes normal visual inspection and Yes trachea midline CERVICAL SPINE: Yes cervical ROM normal Lymph: LYMPHATIC: no lymphadenopathy noted Chest: COMMONS NORMALS: normal inspection of the chest and normal palpation of entire chest wall Resp: COMMON NORMALS: normal respiratory effort and clear to auscultation bilaterally EFFORT & INSPECTION: Yes able to speak in complete sentences AUSCULTATION: clear to auscultation bilaterally Cardio: COMMON NORMALS: regular rhythm, S1 normal heart sound present, S2 normal heart sound present and Peripheral pulses 2+ throughout RHYTHM: regular rhythm HEART SOUNDS: S1 normal heart sound present and S2 normal heart sound present PERIPHERAL PULSES: Peripheral pulses 2+ throughout GI: COMMON NORMALS: Normal to inspection, nondistended, normoactive bowel sounds present, Soft to palpation and non-tender INSPECTION: Yes normal to inspection PALPATION: Yes Soft to palpation : COMMON NORMALS: Yes no CVA tenderness BLADDER/KIDNEY EXAM: Yes no CVA tenderness Back/Pelvis: COMMON NORMALS: no CVA tenderness and thoracic and lumbar spine normal to inspection Extremity: COMMON NORMALS: normal to inspection and capillary refill normal Neuro: COMMON NORMALS: patient oriented x3 and no focal motor deficits SENSORIUM/ORIENTATION: Yes alert, Yes oriented to person, Yes oriented to place and Yes oriented to time Psych: COMMON NORMALS: mental status grossly normal, Normal thought process present and cooperative APPEARANCE: Yes well kempt ACTIVITY/MOTOR BEHAVIOR: Yes appropriate eye contact THOUGHT PROCESS: Normal thought process present Skin: COMMON NORMALS: turgor normal GENERAL SKIN EXAM: turgor normal RASHES: rashes noted (Uticarial, macular rash, small, sporadic to the left lower flank and left axilla. Manipulation from scratching present.) Course ED course: 60-year-old male patient presents to the emergency department with Covid symptoms. Oxygen saturation at home monitored, readings of 96 to 97%, oxygen readings here in the ED 96 to 99% on room air. Remains on Coumadin, INR 3.1. Chest x-ray unchanged in comparison to 08/25/2020. White blood count normal, creatinine 1.0. Will advise to follow-up with his primary care provider, return to the emergency department if he develops increased shortness of breath, decreased oxygen level to 90 to 91%, or inability to catch his breath. Plan to have him stop azithromycin as this could be cause of rash, recommend to possibly list as allergy. Continue prednisone. Recommend follow-up with his primary care provider in 2 to 3 days. Vital Signs: Vital signs: Vital Signs Temperature 98 F 08/28/20 15:05 Pulse Rate 48 L 08/28/20 18:24 Respiratory Rate 18 08/28/20 15:05 Blood Pressure 130/78 08/28/20 15:05 Pulse Oximetry 95 08/28/20 18:24 MDM - SOB/Dyspnea Lab Data: Labs: Lab Results 08/28/20 08/28/20 08/28/20 Range/Units 18:14 18:14 18:14 WBC 9.1 (4.0-10.0) 10^3/ uL RBC 6.12 H (4.1-5.3) 10^6/u L Hgb 16.7 H (11.7-16.6) g/dL Hct 53.7 H (42.0-52.0) % MCV 87.7 (80-94) fL MCH 27.3 L (28.0-34.0) pg MCHC 31.1 (30.0-36.0) g/dL RDW 13.2 (12.1-15.1) % Plt Count 345 (130-400) 10^3/c mm MPV 10.9 H (7.4-10.4) fL Neut % (Auto) 73.5 % Lymph % (Auto) 17.6 % Garfield % (Auto) 8.7 % Eos % (Auto) 0.0 % Baso % (Auto) 0.0 % Neut # (Auto) 6.68 (1.8-7.7) 10^3/u L Lymph # (Auto) 1.6 (0.8-4.8) 10^3/u L Garfield # (Auto) 0.8 (0.2-0.9) 10^3/u L Eos # (Auto) 0.0 (0.0-0.8) 10^3/u L Baso # (Auto) 0.0 (0.0-0.1) 10^3/u L Nucleated RBC % (a uto) 0 % Nucleated RBCs # 0.0 /100WBC PT 33.70 H (12.1-14.9) SECO NDS INR 3.17 H (0.8-1.2) Sodium 143 (136-145) mmol/L Potassium 4.2 (3.5-5.1) mmol/L Chloride 103 (98-107) mmol/L Carbon Dioxide 30 H (22-29) mmol/L Anion Gap 14.2 (5-19) BUN 18 (6-20) mg/dL Creatinine 1.0 (0.7-1.2) mg/dL GFR Calculation 76.5 L (90-130) mL/min Glucose 129 H (65-115) mg/dL Calculated Osmolal ity 300 H (285-295) mOsm/k g Calcium 9.6 (8.5-10.5) mg/dL Total Bilirubin 0.5 (0.15-1.2) mg/dL AST 25 (0-40) U/L ALT 35 (0-41) U/L Alkaline Phosphata se 102 (40-130) IU/L Total Protein 7.9 (6.6-8.7) g/dL Albumin 4.3 (3.5-5.2) g/dL Globulin 3.6 (1.3-4.6) g/dL Discharge Plan Discharge Patient Disposition: Home Clinical Impression: COVID-19, Anticoagulated on Coumadin Condition: Stable Prescriptions: Continued prednisone 20 mg tablet 20 mg PO TID 5 Days Qty: 15 RF: 0 Discontinued azithromycin 250 mg tablet 250 mg PO DAILY 4 Days Qty: 4 RF: 0 No Action sotalol [Sotalol AF] 80 mg tablet 80 mg PO DIRECTED Qty: 135 RF: 3 nitroglycerin [Nitrostat] 0.4 mg tablet, sublingual 0.4 mg SUBLINGUAL Q5M PRN (Reason: Chest Pain) RF: 0 warfarin 5 mg tablet 5 mg PO DIRECTED RF: 0 lovastatin 40 mg tablet 40 mg PO DAILY RF: 0 amlodipine 10 mg tablet 10 mg PO DAILY RF: 0 Advair HFA 115-21 mcg/actuation HFA aerosol inhaler 2 puff INHALATION BID 30 Days Qty: 8 RF: 6 valsartan 80 mg tablet 80 mg PO DAILY Qty: 90 RF: 3 potassium chloride 10 mEq tablet extended release 10 meq PO DAILY PRN (Reason: WITH LASIX) RF: 0 furosemide 40 mg tablet 40 mg PO DAILY RF: 0 hydrocodone-acetaminophen 5-325 mg tablet 1 tab PO Q6H PRN (Reason: pain) Qty: 25 RF: 0 meclizine 25 mg tablet 25 mg PO TID PRN (Reason: dizziness) Qty: 30 RF: 0 Discharge Orders: Discharge Order (Routine); Ordered 08/28/20 Ordered By: Zoe Armijo Referrals: Giorgi Cortes MD [Primary Care Provider] - Discharge Diet: Usual diet Discharge Activity: Limit activity as instructed Patient Instructions: Warfarin (By mouth), Viral Syndrome (ED) Activity Restrictions/Additional Instructions: Continue to monitor your pulse ox at home, oxygen saturation. If oxygen saturation drops less than 91%, you will need to return to the emergency department. You will need to stay at home, remain quarantine, follow-up with your primary care provider via telemedicine in 2 to 3 days for evaluation. In the emergency department if you develop increased shortness of breath, difficulty catching your breath, or low oxygen level. Push fluids, INR today was 3.1. Continue Tylenol as needed for pain/fever. 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
[2020-08-28 18:24] VITALS: PULSE 48; O2SAT 95
[2020-08-28 18:31] LABS: Hematocrit 53.7 % (42.0-52.0); Hemoglobin 16.7 g/dL (11.7-16.6); Lymphocytes # 1.6 10^3/uL (0.8-4.8); Lymphocytes % 17.6 %; Mean Corpuscular HGB Conc 31.1 g/dL (30.0-36.0); Mean Corpuscular Hemoglobin 27.3 pg (28.0-34.0); Mean Corpuscular Volume 87.7 fL (80-94); Mean Platelet Volume 10.9 fL (7.4-10.4); Monocytes # 0.8 10^3/uL (0.2-0.9); Monocytes % 8.7 %; Neutrophils # 6.68 10^3/uL (1.8-7.7); Neutrophils % 73.5 %; Nucleated Red Blood Cells % 0 %; Platelet Count 345 10^3/cmm (130-400); Red Blood Count 6.12 10^6/uL (4.1-5.3); Red Cell Distribution Width 13.2 % (12.1-15.1); White Blood Count 9.1 10^3/uL (4.0-10.0)
[2020-08-28 18:54] LABS: INR 3.17 (0.8-1.2)
[2020-08-28 19:04] LABS: Alanine Aminotransferase 35 U/L (0-41); Albumin Level 4.3 g/dL (3.5-5.2); Alkaline Phosphatase 102 IU/L (40-130); Anion Gap 14.2 (5-19); Aspartate Amino Transferase 25 U/L (0-40); Blood Urea Nitrogen 18 mg/dL (6-20); Calcium 9.6 mg/dL (8.5-10.5); Carbon Dioxide 30 mmol/L (22-29); Chloride 103 mmol/L (98-107); Globulin 3.6 g/dL (1.3-4.6); Glomerular Filtration Rate 76.5 mL/min (90-130); Glucose 129 mg/dL (65-115); Osmolality Calculated 300 mOsm/kg (285-295); Potassium 4.2 mmol/L (3.5-5.1); Sodium 143 mmol/L (136-145); Total Bilirubin 0.5 mg/dL (0.15-1.2); Total Protein 7.9 g/dL (6.6-8.7)
--- NOTE | 2020-08-29 13:53 | DCPLANNER ---
working manager had message to schedule a follow up appointment for patient. Patient will need to do a telehealth visit or a phone visit. working manager called [facility], a phone visit if scheduled for Tuesday, September 01, [address] Cortes. Clinic called patient with appointment information.
--- NOTE | 2020-09-04 15:35 | DCPLANNER ---
Patient had a follow up appointment scheduled for 09.01.[address] Cortes - patient did attend appointment.
== END 2020-08-28 19:50 | disposition home or self-care (01) ==
PROVIDERS: Emergency Medicine; Emergency Provider Nurse Practitioner Family; PCP Family Medicine
DX: U07.1 COVID-19 (principal); Z79.01 Long term (current) use of anticoagulants; I48.91 Unspecified atrial fibrillation; I25.10 Atherosclerotic heart disease of native coronary artery without angina pectoris; I10 Essential (primary) hypertension; E78.5 Hyperlipidemia, unspecified; Z87.891 Personal history of nicotine dependence
CPT/HCPCS: 12345; 36415; 71045; 80053; 85025; 85610; 99282; 99283

== ENCOUNTER 2020-10-06 13:30 | Outpatient (CLI) | payer SELFPAY ==
--- NOTE | 2020-10-06 14:15 | USCV_ITS ---
Dariel Peck Age: 60 Gender: M : 1960 Exam Date: 10/06/2020 13:36 Ordering Phys: Diane Heart MD ([email or web address]) Technologist: Chencho Farias Exam Location: [facility] Indication: CAROTID ARTERY DISEASE Risk Factors: Previous Vascular Surgery: Right Brachial BP: / Left Brachial BP: / Right Left Velocity (cm/s) Spectral Plaque Velocity (cm/s) Spectral Plaque Syst/Diast Broadening Syst/Diast Broadening 141.10/23.20 Prox CCA 156.60/ 26.50 137.80/29.80 Mid CCA 130.10/ 24.30 123.50/27.60 Distal CCA 99.20 / 16.50 134.50/17.60 Prox ICA 97.00 / 25.40 105.80/27.60 Mid ICA 98.10 / 24.30 55.90/ 21.00 Distal ICA 66.20 / 23.20 125.70 ECA 125.70 0.95 ICA/CCA 0.63 Antegrade Vertebral Antegrade 79.20/ 11.70 cm/s 43.40/ 13.80 cm/s Tri Subclavian Tri 81.50 142.2 0 FINDINGS Comparison: none available. No significant elevation of systolic or diastolic velocities. Diffuse bilateral scattered calcified plaque and intimal thickening throughout the common carotid arteries and extending through the bifurcation. Antegrade vertebral arteries. CONCLUSIONS Bilateral ICA stenosis less than 50%. Mild carotid atherosclerosis. Dr. Shonna Philip DO (Electronically Signed) Final Date: 06 October 2020 15:23 S
== END 2020-10-06 13:31 | disposition home or self-care (01) ==
LOC: RAD 13:32
PROVIDERS: PCP Family Medicine; Visit Provider Internal Medicine Cardiovascular Disease
DX: I25.10 Atherosclerotic heart disease of native coronary artery without angina pectoris (principal); I65.23 Occlusion and stenosis of bilateral carotid arteries
CPT/HCPCS: 93880

== ENCOUNTER 2020-10-24 07:44 | Outpatient (CLI) | payer OTHER, SELFPAY ==
[2020-10-24 08:34] LABS: INR 1.74 (0.8-1.2)
[2020-10-24 08:38] LABS: Anion Gap 11.3 (5-19); Blood Urea Nitrogen 18 mg/dL (6-20); Carbon Dioxide 27 mmol/L (22-29); Chloride 105 mmol/L (98-107); Glomerular Filtration Rate 86.4 mL/min (90-130); Glucose 105 mg/dL (65-115); Osmolality Calculated 290 mOsm/kg (285-295); Potassium 4.3 mmol/L (3.5-5.1); Sodium 139 mmol/L (136-145)
[2020-10-24 09:09] LABS: Basophils # 0.1 10^3/uL (0.0-0.1); Basophils % 1.3 %; Eosinophils # 0.6 10^3/uL (0.0-0.8); Hematocrit 47.1 % (42.0-52.0); Hemoglobin 15.1 g/dL (11.7-16.6); Lymphocytes % 25.9 %; Mean Corpuscular HGB Conc 32.1 g/dL (30.0-36.0); Mean Corpuscular Hemoglobin 28.2 pg (28.0-34.0); Mean Platelet Volume 10.6 fL (7.4-10.4); Monocytes # 0.7 10^3/uL (0.2-0.9); Monocytes % 8.5 %; Neutrophils # 4.26 10^3/uL (1.8-7.7); Nucleated Red Blood Cells % 0 %; Platelet Count 252 10^3/cmm (130-400); Red Blood Count 5.35 10^6/uL (4.1-5.3); Red Cell Distribution Width 13.6 % (12.1-15.1); White Blood Count 7.6 10^3/uL (4.0-10.0)
== END 2020-10-24 07:45 | disposition home or self-care (01) ==
LOC: LAB 07:46
PROVIDERS: PCP Family Medicine; Visit Provider Internal Medicine Cardiovascular Disease
DX: Z01.812 Encounter for preprocedural laboratory examination (principal); Z20.828 Contact with and (suspected) exposure to other viral communicable diseases
CPT/HCPCS: 80048; 85025; 85610; 87635

== ENCOUNTER 2020-10-29 09:00 | Day surgery (SDC) | payer SELFPAY ==
[2020-10-28 09:34] VITALS: BMI 42.0
[2020-10-29] VITALS (18 sets, daily range): BP systolic 79–167; BP diastolic 39–101; PULSE 49–66; RESP 11–27; TEMP 36.2–36.8; O2SAT 94–100
--- NOTE | 2020-10-29 09:00 | XACV_ITS ---
Ht: 185 cm Wt: 152 kg BSA: 2.87 m2 Gender: Male : 1960 Any Known Allergies: No known allergies Exam Priority: Routine Procedure(s): Procedure Description: Diagnostic procedure Procedure Description: Left Heart Catheterization Procedure Description: Right Heart Catheterization Procedure Description: O2 saturation Procedure Description: Coronary Angiography Diagnostic Cath Status: Elective Diagnostic Findings * LM has 0% stenosis. * LAD has 0% stenosis. * RCA has 0% stenosis. * pCIRC to mCIRC: Severe 100% stenosis, MITCH: 0 flow. * 3rd RPL to 3rd OM collateralization. * Coronary angiography shows right dominance. Conclusions 1. There is severe coronary artery disease with one vessel disease. Patent previously placed mid LAD stent without significant in-stent restenosis .. 2. Indication for 3. left heart cath: 4. Shortness of breath 5. unexplained 6. in a patient with prior 7. history of stent 8. and significant coronary artery disease 9. , 10. angina despite of medical management. Recommendations * Continue current medical management and risk factor modification. Diagnostic RX Recommendation: medical therapy and/or counseling Pressures Phase:Rest AO : 132 / 77 ( 101 ) @ 5:44:00 AM 133 / 71 ( 102 ) @ 5:44:00 AM LV : 128 / 3 / @ 5:42:00 AM 127 / 1 / @ 5:42:00 AM 169 / 0 / @ 5:44:00 AM 169 / -2 / @ 5:44:00 AM 163 / -1 / @ 5:44:00 AM RV : 42 / 3 / @ 5:14:00 AM PA : 39 / 17 ( 28 ) @ 5:13:00 AM RA : a wave = v wave = mean = 13 @ 5:15:00 AM O2 Content Phase:Rest PA : O2 Content O2: 76.9 @ 5:44:00 AM Saturations Phase:Rest AO : 94 @ 5:42:00 AM RA : 83 @ 5:42:00 AM RV : 76 @ 5:44:00 AM PA : 77 @ 5:44:00 AM Cardiac Output Phase:Rest Yoan : 9 @ 5:44:00 AM Yoan Cardiac Index: 3 @ 5:44:00 AM Valves Phase:DefaultPhase AV : 30.0 @ 11:54:15 AM AV Mean Gradient: 19.0 @ 11:54:15 AM Clinical Evaluation EBL: 5mL-10mL Procedural Details Procedure Consent Obtained. Admit Source: Out Patient. Pre-Procedure Time Out. Identified patient by full name and date of as verbalized by the patient/guarantor. Does the consent match the physician's order: Yes. Accurate & Complete Informed Consent: Yes. Inpatient/Outpatient History & Physical on Chart: Yes. If H&P is completed, is and addenduem needed: N/A; If yes, is the addendum complete: N/A. Visualize and Verify Site with Patient/Guarantor: N/A. Relevant Radiology Images available: N/A. Pre-op teaching completed and patient verbalized understanding. The risks, benefits, and alternatives of sedation and/or procedure were discussed by physician. The patient agrees to continue. Procedure started. Correct patient, site and procedure confirmed by cath team. PERRLA. Strong, equal hand fabrication manager bilaterally. Lungs clear x 5 lobes. IV Site on Arrival: 20 gauge in the right anticubital. Pre Procedural Pulses: bilateral dorsalis pedis was 3+. Pre Procedural Pulses: bilateral posterior tibial was 2+. Pre Procedural Pulses: bilateral radial was 3+. Oxygen started at 2liters/min via nasal canula. bilateral groins was prepped with chloroprep then draped in the usual sterile fashion. right radial was prepped with chloroprep then draped in the usual sterile fashion. right brachial was prepped with chloroprep then draped in the usual sterile fashion. Physician notified. Baseline sample Acquired. HR: 59 BPM. Physician arrived. Physician scrubbed in. Immediate Pre-Procedure Time Out. Correct Patient: Yes; Correct Procedure: Yes; Correct Site: Yes; Correct Patient Position: Yes; Correct Supplies: Yes; Dried Flammable Prep: Yes; Blood Products Available: Na;. Lidocaine 1% infiltrated to the right brachial. Venous access obtained. [place]-Kofi MON catheter inserted. [place]-Kofi out. Lidocaine 1% infiltrated to the right radial. Arterial access obtained. A 6 singaporean TIG catheter in over wire. Multiple views taken of left coronary artery. Catheter redirected to the RCA. Multiple views taken of right coronary artery. wire inserted. Catheter out. A 5 singaporean Angled Pig catheter in over wire. oxygen turned off. EDP Sample taken: LV 128/3,17; HR: 54 BPM; SpO2: 96%. repositioning. EDP Sample taken: LV 169/-1,19; HR: 77 BPM; SpO2: 96%. Pullback taken: LV 163/-2,20; AO 132/77(101); Mean: 19mmHg, Peak to Peak: 30mmHg, SEP: 21sec/min; HR: 74 BPM; SpO2: 95%. Catheter out. TR band placed. Hemostasis obtained. Post Procedure: Pulses reassessed and unchanged. PERRLA. Strong, equal hand fabrication manager bilaterally. No VTE prophylaxis required. Medication's Wasted: Heparin = 1000 units. Medication's Wasted: Lidocaine 1% = 18 mL. Medication's Wasted: Nitro = 49.8 mg. Medication's Wasted: Other = versed mg. Total IV fluids: 75 mL. Sheath(s) removed and manual pressure held until hemostasis was achieved. Sterile 4x4 and Op-site applied to the puncture site. No oozing or hematoma noted. Post sheath removal instructions were given and the patient verbalized understanding. Contrast type used: Visipaque 320 mgI/mL, 500 mL bottle. Contrast Material : Visipaque 84 ml. Complications: none. Estimated blood loss: 5mL-10mL. A Mechanical Compression was successful obtaining hemostatsis at the Right Radial artery insertion site. Procedure completed. [facility] Clinical Fraility Score: 3: Managing Well. 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 Chest Pain Symptom Assessment: Atypical Angina/ unexplained SOB. Cardiovascular Instability: No,. Post-op diagnosis: chronically occluded mid circ with clatterals. Patient transferred by wheelchair to ICU. Vital chart was stopped. Access Site Site: Right Brachial Vein Sheath Size: 6 Fr Hemostasis Success: Unsuccessful Site: Right Radial artery Sheath Size: 6 Fr Hemostasis Method: Mechanical Compression Hemostasis Success: Successful Procedure Medications Start: 11:00 AM Stop: 11:00 AM Medication: Versed Amount: 2 mg Route: I.V. Start: 11:00 AM Stop: 11:00 AM Medication: Fentanyl Amount: 50 mcg Route: I.V. Start: 11:20 AM Stop: 11:20 AM Medication: Versed Amount: 1 mg Route: I.V. Start: 11:28 AM Stop: 11:28 AM Medication: Nitrogylcerin Amount: 200 mcg Route: I.A. Start: 11:29 AM Stop: 11:29 AM Medication: Heparin Amount: 5000 units Route: I.V. Start: 11:34 AM Stop: 11:34 AM Medication: Fentanyl Amount: 50 mcg Route: I.V. I, the attending physician, have reviewed and verified all procedure medications. Yes, all medications given per verbal order History/Risk Factors Dyslipidemia: Yes Renal Disease: No Tobacco Use: Former Prior Interventions PCI: Yes Report Signatures Finalized by Diane Heart MD on 11/02/2020 07:30 PM
[2020-10-29] MEDS: diphenhydrAMINE 50 mg Capsule PO (09:43)
--- NOTE | 2020-10-29 10:23 | P.HP_ITS ---
Providers/Chief Complaint Primary Care Provider: Giorgi Cortes MD Chief Complaint: cardiac catherization History of Present Illness Dariel Peck is a 60 year old male's medical history significant for hypertension hyperlipidemia coronary artery disease COPD atrial fibrillation who recently had Covid. Before Covid he was supposed to undergo left and right heart cath for worsening of shortness of breath and chest pain since he went through Covid it was postponed. Now he is recovered from Covid and negative by test therefore he is ready to proceed with left and right heart cath. He continues to complain regarding worsening of shortness of breath and chest pain upon mild exertion despite of optimization of medicine. Patient understand all risk benefit and alternative for the procedure.. We will proceed with it. Review of Systems All/Imm: Denies: acute wheezing Medications/Allergies Home Medications Medication Instructions Recorded Confirmed Last Taken Type lovastatin 40 mg tablet 40 mg PO DAILY 12/17/19 10/29/20 10/28/20 11:00 History nitroglycerin 0.4 mg sublingual 0.4 mg SUBLINGUAL Q5M PRN 12/17/19 10/28/20 Unknown History tablet warfarin 5 mg tablet 5 mg PO DIRECTED tab 12/17/19 10/28/20 10/26/20 History meclizine 25 mg PO TID PRN #30 tab 12/21/19 10/28/20 Unknown Rx potassium chloride 10 meq PO DAILY PRN 05/14/20 10/28/20 05/18/20 History furosemide 40 mg tablet 40 mg PO DAILY 08/13/20 10/29/20 10/15/20 06:00 History sotalol 80 mg tablet 80 mg PO DIRECTED #135 tab 08/13/20 10/29/20 10/29/20 06:00 Rx valsartan 80 mg tablet 80 mg PO DAILY #90 tab 08/13/20 10/28/20 Unknown Rx amlodipine 10 mg tablet 10 mg PO DAILY #90 tab 09/01/20 10/29/20 10/29/20 06:00 Rx enoxaparin 150 mg/mL subcutaneous 150 mg SUBCUT DAILY #3 device 10/16/20 10/28/20 10/28/20 Rx syringe Allergies Allergy/AdvReac Type Severity Reaction Status Date / Time No Known Allergies Allergy Verified 08/18/20 15:58 PFSH Acute PFSH: Medical History Atrial fibrillation CAD in [place] artery HTN (hypertension) Hyperlipidemia Ischemic cardiomyopathy SHENA (obstructive sleep apnea) Sensorineural hearing loss Surgical History S/P knee surgery S/P PTCA (percutaneous transluminal coronary angioplasty) Family History Mother Myocardial infarction Social History Smoking and tobacco status: former smoker Quit status (tobacco): has quit using tobacco Year quit tobacco: 1980 - 0.5 PPD x 3 Years Second hand smoke exposure: Yes Alcohol intake: former Lives independently: Yes Household members: significant other Marital status: Life Partner Current occupational status: employed 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 NECK: No jugular vein distension. HEENT: No cyanosis. No icterus. No pallor. HEART: Regular S1 and S2. No murmur, rub or gallop. LUNGS: Clear to auscultate bilaterally. ABDOMEN: Soft, nontender and nondistended. Positive bowel sounds. No guarding, rebound or tenderness. CENTRAL NERVOUS SYSTEM: Grossly nonfocal. EXTREMITIES: Lower extremities without edema bilaterally. A&P Assessment and plan (1) Ischemic cardiomyopathy: Worsening of chest pain along with shortness of breath despite optimization of medicine in a patient who has multiple stent in the past is worrisome for angina and ischemic etiology. We would therefore proceed with left and right heart cath today. Status: Acute (2) Atrial fibrillation: Rate controlled on anticoagulation he was bridged with Lovenox which was stopped 12-hour before. Status: Acute Qualifiers: Atrial fibrillation type: persistent (not longstanding) Qualified Code(s): I48.19 - Other persistent atrial fibrillation (3) Shortness of breath: Patient an unexplained worsening of shortness of breath before Covid for which right and left heart cath was suggested. Status: Acute Attestations Medical Necessity Statement*: I am not expecting his stay to cross more than 1 midnight. Coding Level of Care Code New Pt Acute Principal Ios Developer for [facility] Patient Type New History Detailed Exam Detailed Medical Decision Making Moderate Complexity Diagnoses Ischemic cardiomyopathy I25.5 Atrial fibrillation I48.19 Atrial fibrillation type: persistent (not longstanding) Shortness of breath R06.02
--- NOTE | 2020-10-29 10:32 | W.PM.OPSUD ---
Surgery/Procedure H&P Update DATE OF PROCEDURE: October 29, 2020 DATE H&P PERFORMED: 10/29/20 H&P UPDATE INFORMATION: I have examined patient prior to procedure and No changes to prior documentation PREOP DIAGNOSIS: Angina/shortness of breath unexplained PLANNED PROCEDURE: Operation Date: 10/29/20 10:00 Proposed Procedures p bilateral Cardiac Catheterization 91174 I48.19 I25.5(Bilateral) - Diane Heart MD PATIENT REASSESSED PRIOR TO SEDATION, WITH NO CHANGE NOTED: Yes PHYSICAL EXAM: alert, oriented x 3 and clear to auscultation bilaterally AIRWAY EVAL/ANESTHESIA PLAN: ASA II, Risks, benefits & alternatives of sedation and/or procedure discussed and Patient agrees to continue as planned
--- NOTE | 2020-10-29 12:00 | PC.NURSE ---
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 Patient oriented to room and call light. 2 nurse verification of insertion sites, asymptomatic. VSS. Nurse to continue to monitor.
--- NOTE | 2020-10-29 15:00 | PC.NURSE ---
TR band off at 1500. Site asymptomatic, dressing applied. Patient tolerated well. Nurse to continue to monitor.
--- NOTE | 2020-10-29 16:20 | PC.NURSE ---
Discharge instructions given per the physician's orders. Patient verbalized understanding of teaching and did not have any further questions. IV has been removed. Patient dressing self. No further needs identified at this time.
== END 2020-10-29 16:37 | disposition home or self-care (01) ==
LOC: CCL 09:03 → CSU 15:50 → ICU 11-03 08:24 → CSU 11-03 08:25
PROVIDERS: PCP Family Medicine; Visit Provider Internal Medicine Cardiovascular Disease
DX: I25.10 Atherosclerotic heart disease of native coronary artery without angina pectoris (principal); I25.5 Ischemic cardiomyopathy; I48.19 Other persistent atrial fibrillation; R06.02 Shortness of breath; I10 Essential (primary) hypertension; E78.5 Hyperlipidemia, unspecified; J44.9 Chronic obstructive pulmonary disease, unspecified; Z79.01 Long term (current) use of anticoagulants; G47.33 Obstructive sleep apnea (adult) (pediatric); Z87.891 Personal history of nicotine dependence
CPT/HCPCS: 36415; 93460; C1751; C1769; C1887; C1894; J1644; J2250; J3010; J3490; J7030; Q0163; Q9967

== ENCOUNTER 2020-11-01 04:07 | Emergency (ER) | payer SELFPAY ==
[2020-11-01] VITALS (8 sets, daily range): BP systolic 111–179; BP diastolic 63–89; PULSE 54–89; RESP 13–22; TEMP 36.3; O2SAT 96–98; BMI 39.9
--- NOTE | 2020-11-01 04:46 | CTR_ITS ---
PROCEDURE INFORMATION: Exam: CT Angiography Head With Contrast Exam date and time: 11/01/2020 4:49 AM Age: 60 years old Clinical indication: Dizziness and giddiness; Patient HX: Dizziness with nausea. Hypertensive. TECHNIQUE: Imaging protocol: Computed tomography angiography of the head with intravenous contrast. 3D rendering (Not supervised by radiologist): MIP and/or 3D reconstructed images were created by the technologist. Radiation optimization: All CT scans at this facility use at least one of these dose optimization techniques: automated exposure control; mA and/or kV adjustment per patient size (includes targeted exams where dose is matched to clinical indication); or iterative reconstruction. Contrast material: OMNI 350; Contrast volume: 95 ml; Contrast route: INTRAVENOUS (IV); COMPARISON: CT head wo con* [id number] 11/01/2020 4:56 AM RADIATION DOSE METRICS: Total DLP (mGy-cm): 2964.34 FINDINGS: ANTERIOR CIRCULATION: Right internal carotid artery: Mild atherosclerotic calcification in the carotid siphon but no significant stenosis. Intracranial segment is patent with no significant stenosis. No aneurysm. Right middle cerebral artery: Unremarkable. No occlusion or significant stenosis. No aneurysm. Right anterior cerebral artery: Unremarkable. No occlusion or significant stenosis. No aneurysm. Left internal carotid artery: Mild atherosclerotic calcification in the carotid siphon but no significant stenosis. Intracranial segment is patent with no significant stenosis. No aneurysm. Left middle cerebral artery: Unremarkable. No occlusion or significant stenosis. No aneurysm. Left anterior cerebral artery: Unremarkable. No occlusion or significant stenosis. No aneurysm. POSTERIOR CIRCULATION: Right vertebral artery: Unremarkable. No occlusion or significant stenosis. No aneurysm. Left vertebral artery: Unremarkable. No occlusion or significant stenosis. No aneurysm. Basilar artery: Unremarkable. No occlusion or significant stenosis. No aneurysm. Right posterior cerebral artery: Unremarkable. No occlusion or significant stenosis. No aneurysm. Left posterior cerebral artery: Unremarkable. No occlusion or significant stenosis. No aneurysm. Brain: No definite mass, mass effect, or midline shift. Cerebral ventricles: No ventriculomegaly. Bones/joints: Unremarkable. No acute fracture. Soft tissues: Unremarkable. IMPRESSION: No large vessel stenosis or occlusion. PROCEDURE INFORMATION: Exam: CT Angiography Neck With Contrast Exam date and time: 11/01/2020 4:49 AM Age: 60 years old Clinical indication: Dizziness and giddiness; Patient HX: Dizziness with nausea. Hypertensive. TECHNIQUE: Imaging protocol: Computed tomography angiography of the neck with intravenous contrast. 3D rendering (Not supervised by radiologist): MIP and/or 3D reconstructed images were created by the technologist. Radiation optimization: All CT scans at this facility use at least one of these dose optimization techniques: automated exposure control; mA and/or kV adjustment per patient size (includes targeted exams where dose is matched to clinical indication); or iterative reconstruction. Contrast material: OMNI 350; Contrast volume: 95 ml; Contrast route: INTRAVENOUS (IV); COMPARISON: CT head wo [facility]* [id number] 11/01/2020 4:56 AM RADIATION DOSE METRICS: Total DLP (mGy-cm): 2964.34 FINDINGS: Right common carotid artery: No stenosis. No dissection or occlusion. Right internal carotid artery: Mild atherosclerotic calcification at the origin with mild less than 50% stenosis. No dissection or occlusion. Right external carotid artery: No occlusion or stenosis of the origin. Right vertebral artery: No stenosis. No dissection or occlusion. Left common carotid artery: No stenosis. No dissection or occlusion. Left internal carotid artery: Mild atherosclerotic calcification at the origin with mild less than 50% stenosis No dissection or occlusion. Left external carotid artery: No occlusion or stenosis of the origin. Left vertebral artery: No stenosis. No dissection or occlusion. Bones/joints: Prominent degenerative changes are present in the cervical spine with large osteophyte formation in the commence calcification.. Soft tissues: Normal. No significant soft tissue swelling. CT/CT angio headneck* [id number] IMPRESSION: Mild atherosclerotic calcification at the origins of the internal carotid arteries but less than 50% stenosis.. REFERENCES: NASCET CRITERIA. The degree of internal carotid artery stenosis is based on NASCET criteria. Normal is no stenosis. Mild is less than 50% stenosis. Moderate is 50-69% stenosis. Severe is 70% to 99% stenosis. Total occlusion is no detectable patent lumen. Radiation Dose CTDIVOL = (mGy): DLP = 2964.34~2964.34 (mGy-cm)
--- NOTE | 2020-11-01 04:46 | ECG_ITS ---
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 Measurements Intervals [place] Rate: 55 P: 64 MD: 165 QRS: 100 QRSD: 114 T: 65 QT: 440 QTc: 424 Interpretive Statements SINUS BRADYCARDIA INCOMPLETE RIGHT BUNDLE BRANCH BLOCK [90+ ms QRS DURATION, TERMINAL R IN V1/V2, 40+ ms S IN I/aVL/V4/V5/V6] POSSIBLE RIGHT VENTRICULAR HYPERTROPHY [SOME/ALL OF: PROMINENT R IN V1, LATE TRANSITION, RAD, DAVONTE, SSS] Compared to ECG 05/14/2020 19:20:38 No significant changes Electronically Signed On 11-01-2020 8:36:51 INTER COM SERVICER by Ailin Bai M.D. [id number]
--- NOTE | 2020-11-01 04:46 | XRR_ITS ---
PROCEDURE INFORMATION: Exam: XR Chest, 1 View Exam date and time: 11/01/2020 4:49 AM Age: 60 years old Clinical indication: Prior surgery; Surgery type: Cardiac stents; Patient HX: Central chest pain. Nausea. Hypertensive. TECHNIQUE: Imaging protocol: XR of the chest Views: 1 view. COMPARISON: CR XR chest 1V portable [id number] 08/28/2020 7:14 PM FINDINGS: Lungs: Mild subsegmental atelectasis is present in the lung bases. Pleural space: Unremarkable. No pleural effusion. No pneumothorax. Heart/Mediastinum: The cardiac silhouette is mildly enlarged. Bones/joints: Unremarkable. XR/XR chest 1V portable [id number] IMPRESSION: 1. Stable cardiomegaly. 2. Mild basilar atelectasis. 3. No other acute abnormality.
--- NOTE | 2020-11-01 04:46 | CTR_ITS ---
PROCEDURE INFORMATION: Exam: CT Head Without Contrast Exam date and time: 11/01/2020 4:48 AM Age: 60 years old Clinical indication: Patient HX: Dizziness with nausea. Hypertensive. TECHNIQUE: Imaging protocol: Computed tomography of the head without contrast. Radiation optimization: All CT scans at this facility use at least one of these dose optimization techniques: automated exposure control; mA and/or kV adjustment per patient size (includes targeted exams where dose is matched to clinical indication); or iterative reconstruction. COMPARISON: CT head wo con* [id number] 12/21/2019 8:11 AM RADIATION DOSE METRICS: Total DLP (mGy-cm): 1145.5 FINDINGS: Brain: No intracranial hemorrhage, edema or other acute abnormalities are seen in the brain. There is a 5 mm white matter lacunar infarct in the right frontal lobe. Mild patchy decreased white matter density is consistent with chronic small vessel white matter ischemia. Cerebral ventricles: No ventriculomegaly. Bones/joints: Unremarkable. No acute fracture. Paranasal sinuses: Visualized sinuses are unremarkable. No fluid levels. Mastoid air cells: Visualized mastoid air cells are well aerated. Soft tissues: Unremarkable. CT/CT head wo con* [id number] IMPRESSION: No acute intracranial abnormality. Radiation Dose CTDIVOL = (mGy): DLP = 1145.5 (mGy-cm)
[2020-11-01 04:55] LABS: Basophils # 0.1 10^3/uL (0.0-0.1); Basophils % 0.9 %; Eosinophils # 0.5 10^3/uL (0.0-0.8); Eosinophils % 6.6 %; Hematocrit 47.3 % (42.0-52.0); Hemoglobin 15.1 g/dL (11.7-16.6); Lymphocytes # 1.2 10^3/uL (0.8-4.8); Lymphocytes % 15.1 %; Mean Corpuscular HGB Conc 31.9 g/dL (30.0-36.0); Mean Corpuscular Hemoglobin 27.7 pg (28.0-34.0); Mean Corpuscular Volume 86.8 fL (80-94); Mean Platelet Volume 10.2 fL (7.4-10.4); Monocytes # 0.6 10^3/uL (0.2-0.9); Monocytes % 7.1 %; Neutrophils % 70.2 %; Nucleated Red Blood Cells % 0 %; Platelet Count 277 10^3/cmm (130-400); Red Blood Count 5.45 10^6/uL (4.1-5.3); Red Cell Distribution Width 13.3 % (12.1-15.1); White Blood Count 8.1 10^3/uL (4.0-10.0)
[2020-11-01] MEDS: iohexol 350 mg/mL 100 mL Btl IV (05:05)
[2020-11-01 05:19] LABS: Alanine Aminotransferase 85 U/L (0-41); Albumin Level 4.3 g/dL (3.5-5.2); Alkaline Phosphatase 95 IU/L (40-130); Aspartate Amino Transferase 53 U/L (0-40); Blood Urea Nitrogen 15 mg/dL (6-20); Calcium 9.3 mg/dL (8.5-10.5); Carbon Dioxide 26 mmol/L (22-29); Chloride 102 mmol/L (98-107); Globulin 2.7 g/dL (1.3-4.6); Glomerular Filtration Rate 76.5 mL/min (90-130); Glucose 135 mg/dL (65-115); Lipase 76 U/L (13-60); Magnesium 1.9 mg/dL (1.7-2.3); Osmolality Calculated 291 mOsm/kg (285-295); Sodium 139 mmol/L (136-145); Total Bilirubin 0.5 mg/dL (0.15-1.2)
[2020-11-01 05:20] LABS: Troponin(5th) Baseline 9 ng/L (0-15)
--- NOTE | 2020-11-01 05:31 | ED_ITS ---
Documented by User: Christa Candy Daisy 11/01/20 05:47 HPI - Dizziness General: Chief Complaint: Dizziness Stated Complaint: woke up bp 200/101, nausea, vertigo Time Seen by Provider: 11/01/20 04:10 Source: patient and EMS Mode of arrival: EMS Limitations: no limitations History of Present Illness: HPI Narrative: Dariel is a nice 60-year-old male who comes in complaining of primarily dizziness and nausea. Patient states he went to bed at 10 PM last night in his normal state of health but then woke up at 2 AM feeling sick with a severe nausea and room spinning dizziness. Patient checked his blood pressure and found it to be markedly elevated. He was diaphoretic and also had nauseousness but never did vomit. The patient took an extra half dose of sotalol and another blood pressure medication he had at home but even when his blood pressure came down he did not feel better. He still feels nauseated and he still feels slightly dizzy. He also states that he feels weak and shaky but his diaphoresis has resolved. His chest pain was in the upper center part of his chest and lasted a short time. Patient has been worked up recently for cardiac disease but not found to have any interveneable lesions according to him. Patient states that the angiogram was actually 3 days ago. Currently the patient's chest pain is gone and he is unaware of any exacerbating alleviating factors that occurred with this. Otherwise he denies any complaints or concerns at this time. Associated symptoms: Reports chest pain and nausea; Denies change in hearing, chills, diaphoresis, ear discharge, headache(s), malaise, palpitations, syncope or vomiting Associated neuro symptoms: Deny confusion or numbness in extremities Review of Systems Const: Denies: fever(s), chills, body aches, fatigue, malaise or diaphoresis Eyes: Denies: change in vision, blurry vision, photophobia, eye discomfort, eye discharge, eye redness or yellow eyes ENMT: Denies: throat pain, odynophagia, hoarseness, swelling of lips/tongue, ear or mastoid pain, ear discharge, change in hearing or nasal discharge Card: Reports: chest pain; Denies: palpitations, irregular heart rhythm, edema, lightheadedness, syncope, pre-syncope, dyspnea on exertion or orthopnea Resp: Denies: dyspnea, productive cough, non-productive cough, wheezing, hemoptysis or chest congestion GI: Reports: nausea; Denies: abdominal pain, vomiting, hematemesis, coffee ground emesis, heartburn, diarrhea, constipation, GI cramping, hematochezia or melena : Denies: flank pain, dysuria, urinary frequency, urinary urgency or hematuria Musc: Denies: neck pain, back pain, extremity pain, extremity swelling, joint pain, joint swelling, joint redness, joint warmth or joint stiffness Skin/Breast: Denies: rash, pruritus, erythema, skin pain or skin tenderness Neuro: Reports: dizziness and vertigo; Denies: headache(s), numbness in extremities, weakness in extremities, sensory changes, lack of coordination, difficulty walking, confusion, Slurred speech present or seizure-like activity Temo/Lymph: Denies: easy bruising, easy bleeding, petechiae, purpura or enlarged lymph nodes All/Imm: Denies: urticaria, throat swelling, tongue swelling, facial swelling or acute wheezing PFSH ED PFSH: Medical History (Updated 11/01/20 @ 08:42 by Lázaro Rhodes DO) Atrial fibrillation CAD in zuni artery HTN (hypertension) Hyperlipidemia Ischemic cardiomyopathy SHENA (obstructive sleep apnea) Sensorineural hearing loss Surgical History S/P knee surgery S/P PTCA (percutaneous transluminal coronary angioplasty) Family History Mother Myocardial infarction Social History Smoking and tobacco status: former smoker Quit status (tobacco): has quit using tobacco Year quit tobacco: 1979 - 0.5 PPD x 3 Years Second hand smoke exposure: Yes Alcohol intake: former Lives independently: Yes Household members: significant other Marital status: Life Partner Current occupational status: employed 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 Current occupational exposures/hazards: No History of recent travel: No Current gender identity: Male Physical Exam Const: COMMON NORMALS: no acute distress, patient oriented x3, no limitations and alert GENERAL APPEARANCE: cooperative HENMT: COMMON NORMALS: normocephalic, atraumatic, external ears normal, EAC's normal and Normal external nose present HEAD & SCALP: normal to inspection, normocephalic and atraumatic FACE & SINUS: normal facial exam and face symmetric NOSE: Normal external nose present and Normal nares present EXTERNAL EAR: Yes external ears normal EXTERNAL AUDITORY CANAL: EAC's normal MOUTH: Normal oral and palatal mucosa present, lip normal and tongue normal Eye: COMMON NORMALS: Equal, round and reactive pupils present and conjunctivae normal GENERAL EYE: appearance normal, both eyes and all related structures ALIGNMENT: Yes alignment normal PERIORBITAL: periorbital findings normal EYELID: eyelids normal CONJUNCTIVA: Yes conjunctivae normal SCLERA: sclerae normal PUPIL: Yes Equal, round and reactive pupils present Neck/C-Spine: COMMON NORMALS: full ROM, no lymphadenopathy, supple, no meningeal signs and no JVD GENERAL: Yes normal visual inspection and Yes trachea midline Chest: COMMONS NORMALS: normal inspection of the chest and normal palpation of entire chest wall Resp: COMMON NORMALS: normal respiratory effort, No retractions, No use of accessory muscles and clear to auscultation bilaterally EFFORT & INSPECTION: Yes able to speak in complete sentences and Yes symmetric chest movement AUSCULTATION: clear to auscultation bilaterally, no crackles, no rales, no rhonchi and no wheezes Cardio: COMMON NORMALS: no JVD, regular rate, regular rhythm, S1 normal heart sound present and S2 normal heart sound present RATE: regular rate RHYTHM: regular rhythm HEART SOUNDS: S1 normal heart sound present, S2 normal heart sound present, no click, no gallops, no murmurs and no rubs GI: COMMON NORMALS: Soft to palpation and No hepatosplenomegaly present PALPATION: Yes Soft to palpation, No Tenderness to palpation present (GI), No Guarding due to palpation present (GI), No Rigid due to palpation, Yes No hepatosplenomegaly present, No Hernia present, No Palpable mass present and No Pulsatile mass present : COMMON NORMALS: Yes no CVA tenderness BLADDER/KIDNEY EXAM: Yes no CVA tenderness Back/Pelvis: COMMON NORMALS: no CVA tenderness, thoracic and lumbar spine normal to inspection, no thoracic nor lumbar tenderness and thoraco-lumbar ROM normal Extremity: COMMON NORMALS: normal to inspection, full ROM, capillary refill normal, no joint enlargement, no clubbing, cyanosis or edema and no calf tenderness Neuro: COMMON NORMALS: patient oriented x3, CN's II-XII intact bilaterally, moves all extremities, no focal motor deficits and no sensory deficits noted SENSORIUM/ORIENTATION: Yes alert MENINGEAL SIGNS: Yes no meningeal signs SPEECH: speech normal Psych: COMMON NORMALS: mental status grossly normal, Normal thought process present, cooperative, normal affect, speech normal and activity/motor behavior normal SPEECH: Yes normal speech THOUGHT PROCESS: Normal thought process present Skin: COMMON NORMALS: no rashes or lesions noted, turgor normal, no jaundice, no petechiae and no mottling GENERAL SKIN EXAM: no rashes or lesions noted and turgor normal Course Vital Signs: Vital signs: Vital Signs Temperature 97.4 F L 11/01/20 04:14 Pulse Rate 57 L 11/01/20 10:10 Respiratory Rate 14 11/01/20 10:10 Blood Pressure 128/67 11/01/20 10:10 Pulse Oximetry 97 11/01/20 10:10 MDM - Dizziness MDM Narrative: Medical decision making narrative: 0600 Eitan is a nice 60-year-old male who comes in with dizziness, vertigo type symptoms and nausea. He had some brief chest discomfort but recently had a negative cardiac work-up. Patient arrived outside a window for TPA if this is a stroke but currently CTs are pending. A CTA was ordered in case there was an intervening bone lesion that could be acted upon. Lab Data: Labs: Lab Results 11/01/20 11/01/20 11/01/20 Range/Units 04:40 04:40 04:40 WBC 8.1 (4.0-10.0) 10^3/ uL RBC 5.45 H (4.1-5.3) 10^6/u L Hgb 15.1 (11.7-16.6) g/dL Hct 47.3 (42.0-52.0) % MCV 86.8 (80-94) fL MCH 27.7 L (28.0-34.0) pg MCHC 31.9 (30.0-36.0) g/dL RDW 13.3 (12.1-15.1) % Plt Count 277 (130-400) 10^3/c mm MPV 10.2 (7.4-10.4) fL Neut % (Auto) 70.2 % Lymph % (Auto) 15.1 % [facility] % (Auto) 7.1 % Eos % (Auto) 6.6 % Baso % (Auto) 0.9 % Neut # (Auto) 5.70 (1.8-7.7) 10^3/u L Lymph # (Auto) 1.2 (0.8-4.8) 10^3/u L [facility] # (Auto) 0.6 (0.2-0.9) 10^3/u L Eos # (Auto) 0.5 (0.0-0.8) 10^3/u L Baso # (Auto) 0.1 (0.0-0.1) 10^3/u L Nucleated RBC % (a uto) 0 % Nucleated RBCs # 0.0 /100WBC Sodium 139 (136-145) mmol/L Potassium 4.0 (3.5-5.1) mmol/L Chloride 102 (98-107) mmol/L Carbon Dioxide 26 (22-29) mmol/L Anion Gap 15.0 (5-19) BUN 15 (6-20) mg/dL Creatinine 1.0 (0.7-1.2) mg/dL GFR Calculation 76.5 L (90-130) mL/min Glucose 135 H (65-115) mg/dL Calculated Osmolal ity 291 (285-295) mOsm/k g Calcium 9.3 (8.5-10.5) mg/dL Magnesium 1.9 (1.7-2.3) mg/dL Total Bilirubin 0.5 (0.15-1.2) mg/dL AST 53 H (0-40) U/L ALT 85 H (0-41) U/L Alkaline Phosphata se 95 (40-130) IU/L Troponin T Baselin e 9 (0-15) ng/L Troponin T 120 Min [place] (0-15) ng/L Delta Troponin T (0-10) ABS# Total Protein 7.0 (6.6-8.7) g/dL Albumin 4.3 (3.5-5.2) g/dL Globulin 2.7 (1.3-4.6) g/dL Lipase 76 H (13-60) U/L Urine Color (Yellow) Urine Appearance (CLEAR) Urine pH (5-7) Ur Specific Gravit y (1.005-1.030) Urine Protein (Negative) Urine Glucose (UA) (Normal) Urine Ketones (Negative) Urine Blood (Negative) Urine Nitrate (Negative) Urine Bilirubin (Negative) Prot Sulfosalicyli c Acd (Negative) Urine Urobilinogen (Negative) mg/dL Ur Leukocyte Shelli ase (Negative) 11/01/20 11/01/20 Range/Units 05:50 06:46 WBC (4.0-10.0) 10^3/ uL RBC (4.1-5.3) 10^6/u L Hgb (11.7-16.6) g/dL Hct (42.0-52.0) % MCV (80-94) fL MCH (28.0-34.0) pg MCHC (30.0-36.0) g/dL RDW (12.1-15.1) % Plt Count (130-400) 10^3/c mm MPV (7.4-10.4) fL Neut % (Auto) % Lymph % (Auto) % [facility] % (Auto) % Eos % (Auto) % Baso % (Auto) % Neut # (Auto) (1.8-7.7) 10^3/u L Lymph # (Auto) (0.8-4.8) 10^3/u L [facility] # (Auto) (0.2-0.9) 10^3/u L Eos # (Auto) (0.0-0.8) 10^3/u L Baso # (Auto) (0.0-0.1) 10^3/u L Nucleated RBC % (a uto) % Nucleated RBCs # /100WBC Sodium (136-145) mmol/L Potassium (3.5-5.1) mmol/L Chloride (98-107) mmol/L Carbon Dioxide (22-29) mmol/L Anion Gap (5-19) BUN (6-20) mg/dL Creatinine (0.7-1.2) mg/dL GFR Calculation (90-130) mL/min Glucose (65-115) mg/dL Calculated Osmolal ity (285-295) mOsm/k g Calcium (8.5-10.5) mg/dL Magnesium (1.7-2.3) mg/dL Total Bilirubin (0.15-1.2) mg/dL AST (0-40) U/L ALT (0-41) U/L Alkaline Phosphata se (40-130) IU/L Troponin T Baselin e (0-15) ng/L Troponin T 120 Min [place] 9.38 (0-15) ng/L Delta Troponin T 0.38 (0-10) ABS# Total Protein (6.6-8.7) g/dL Albumin (3.5-5.2) g/dL Globulin (1.3-4.6) g/dL Lipase (13-60) U/L Urine Color Straw (Yellow) Urine Appearance Clear (CLEAR) Urine pH 8 H (5-7) Ur Specific Gravit y 1.010 (1.005-1.030) Urine Protein Neg (Negative) Urine Glucose (UA) Norm (Normal) Urine Ketones Negative (Negative) Urine Blood Neg (Negative) Urine Nitrate Negative (Negative) Urine Bilirubin Neg (Negative) Prot Sulfosalicyli c Acd Negative (Negative) Urine Urobilinogen Norm (Negative) mg/dL Ur Leukocyte Shelli ase Negative (Negative) Imaging Data^: CXR: Attestation: I personally reviewed and interpreted this imaging study as follows: My impression: Cardiomegaly without acute pulmonary vascular congestion. EKG Data^: EKG 1: Attestation: I personally reviewed and interpreted this EKG as follows: EKG interpretation date: 11/01/20 EKG interpretation time: 04:46 Interpretation: Normal sinus rhythm at 55 beats a minute, normal axis, incomplete right bundle branch block, normal QTC, no acute ST or T wave changes. Discharge Plan Discharge Patient Disposition: Home Clinical Impression: Labyrinthitis, acute Condition: Stable Prescriptions: New Ativan 1 mg tablet 1 mg PO Q6H PRN (Reason: dizziness) Qty: 14 RF: 0 No Action sotalol [Sotalol AF] 80 mg tablet 80 mg PO DIRECTED Qty: 135 RF: 3 nitroglycerin [Nitrostat] 0.4 mg tablet, sublingual 0.4 mg SUBLINGUAL Q5M PRN (Reason: Chest Pain) RF: 0 warfarin 5 mg tablet 5 mg PO DIRECTED RF: 0 lovastatin 40 mg tablet 40 mg PO DAILY RF: 0 valsartan 80 mg tablet 80 mg PO DAILY Qty: 90 RF: 3 amlodipine 10 mg tablet 10 mg PO DAILY Qty: 90 RF: 3 enoxaparin [Lovenox] 150 mg/mL syringe 150 mg SUBCUT DAILY Qty: 3 RF: 0 potassium chloride 10 mEq tablet extended release 10 meq PO DAILY PRN (Reason: WITH LASIX) RF: 0 furosemide 40 mg tablet 40 mg PO DAILY RF: 0 meclizine 25 mg tablet 25 mg PO TID PRN (Reason: dizziness) Qty: 30 RF: 0 Discharge Orders: Discharge ED (Routine); Ordered 11/01/20 Ordered By: Lázaro Rhodes Referrals: Giorgi Cortes MD [Primary Care Provider] - Sign Out Sign Out Data: Patient Sign Out occurred on 11/01/20 at 06:57. Patient's care was discussed, and care was transferred from Christa Villa to Lázaro Rhodes DO. Sign Out Comment: Case turned over to Dr. Rhodes at change of shift. 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 Fwd Exam Comprehensive Documented by User: Lázaro Rhodes DO 11/01/20 14:12 HPI - Dizziness General: Chief Complaint: Dizziness Stated Complaint: woke up bp 200/101, nausea, vertigo Time Seen by Provider: 11/01/20 04:10 [facility] ED PFSH: Medical History (Updated 11/01/20 @ 08:42 by Lázaro Rhodes DO) Atrial fibrillation CAD in zuni artery HTN (hypertension) Hyperlipidemia Ischemic cardiomyopathy SHENA (obstructive sleep apnea) Sensorineural hearing loss Surgical History S/P knee surgery S/P PTCA (percutaneous transluminal coronary angioplasty) Family History Mother Myocardial infarction Social History Smoking and tobacco status: former smoker Quit status (tobacco): has quit using tobacco Year quit tobacco: 1979 - 0.5 PPD x 3 Years Second hand smoke exposure: Yes Alcohol intake: former Lives independently: Yes Household members: significant other Marital status: Life Partner Current occupational status: employed 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 Fregoso at change of shift. His second troponin is negative he is up and ambulatory without any difficulty has not had any further symptoms he prefer to go home I think it is fine for him to go home suspect he had a labyrinthitis we will give him some Ativan to use as needed. Lab Data: Labs: Lab Results 11/01/20 11/01/20 11/01/20 Range/Units 04:40 04:40 04:40 WBC 8.1 (4.0-10.0) 10^3/ uL RBC 5.45 H (4.1-5.3) 10^6/u L Hgb 15.1 (11.7-16.6) g/dL Hct 47.3 (42.0-52.0) % MCV 86.8 (80-94) fL MCH 27.7 L (28.0-34.0) pg MCHC 31.9 (30.0-36.0) g/dL RDW 13.3 (12.1-15.1) % Plt Count 277 (130-400) 10^3/c mm MPV 10.2 (7.4-10.4) fL Neut % (Auto) 70.2 % Lymph % (Auto) 15.1 % [facility] % (Auto) 7.1 % Eos % (Auto) 6.6 % Baso % (Auto) 0.9 % Neut # (Auto) 5.70 (1.8-7.7) 10^3/u L Lymph # (Auto) 1.2 (0.8-4.8) 10^3/u L [facility] # (Auto) 0.6 (0.2-0.9) 10^3/u L Eos # (Auto) 0.5 (0.0-0.8) 10^3/u L Baso # (Auto) 0.1 (0.0-0.1) 10^3/u L Nucleated RBC % (a uto) 0 % Nucleated RBCs # 0.0 /100WBC Sodium 139 (136-145) mmol/L Potassium 4.0 (3.5-5.1) mmol/L Chloride 102 (98-107) mmol/L Carbon Dioxide 26 (22-29) mmol/L Anion Gap 15.0 (5-19) BUN 15 (6-20) mg/dL Creatinine 1.0 (0.7-1.2) mg/dL GFR Calculation 76.5 L (90-130) mL/min Glucose 135 H (65-115) mg/dL Calculated Osmolal ity 291 (285-295) mOsm/k g Calcium 9.3 (8.5-10.5) mg/dL Magnesium 1.9 (1.7-2.3) mg/dL Total Bilirubin 0.5 (0.15-1.2) mg/dL AST 53 H (0-40) U/L ALT 85 H (0-41) U/L Alkaline Phosphata se 95 (40-130) IU/L Troponin T Baselin e 9 (0-15) ng/L Troponin T 120 Min [place] (0-15) ng/L Delta Troponin T (0-10) ABS# Total Protein 7.0 (6.6-8.7) g/dL Albumin 4.3 (3.5-5.2) g/dL Globulin 2.7 (1.3-4.6) g/dL Lipase 76 H (13-60) U/L Urine Color (Yellow) Urine Appearance (CLEAR) Urine pH (5-7) Ur Specific Gravit y (1.005-1.030) Urine Protein (Negative) Urine Glucose (UA) (Normal) Urine Ketones (Negative) Urine Blood (Negative) Urine Nitrate (Negative) Urine Bilirubin (Negative) Prot Sulfosalicyli c Acd (Negative) Urine Urobilinogen (Negative) mg/dL Ur Leukocyte Shelli ase (Negative) 11/01/20 11/01/20 Range/Units 05:50 06:46 WBC (4.0-10.0) 10^3/ uL RBC (4.1-5.3) 10^6/u L Hgb (11.7-16.6) g/dL Hct (42.0-52.0) % MCV (80-94) fL MCH (28.0-34.0) pg MCHC (30.0-36.0) g/dL RDW (12.1-15.1) % Plt Count (130-400) 10^3/c mm MPV (7.4-10.4) fL Neut % (Auto) % Lymph % (Auto) % [facility] % (Auto) % Eos % (Auto) % Baso % (Auto) % Neut # (Auto) (1.8-7.7) 10^3/u L Lymph # (Auto) (0.8-4.8) 10^3/u L [facility] # (Auto) (0.2-0.9) 10^3/u L Eos # (Auto) (0.0-0.8) 10^3/u L Baso # (Auto) (0.0-0.1) 10^3/u L Nucleated RBC % (a uto) % Nucleated RBCs # /100WBC Sodium (136-145) mmol/L Potassium (3.5-5.1) mmol/L Chloride (98-107) mmol/L Carbon Dioxide (22-29) mmol/L Anion Gap (5-19) BUN (6-20) mg/dL Creatinine (0.7-1.2) mg/dL GFR Calculation (90-130) mL/min Glucose (65-115) mg/dL Calculated Osmolal ity (285-295) mOsm/k g Calcium (8.5-10.5) mg/dL Magnesium (1.7-2.3) mg/dL Total Bilirubin (0.15-1.2) mg/dL AST (0-40) U/L ALT (0-41) U/L Alkaline Phosphata se (40-130) IU/L Troponin T Baselin e (0-15) ng/L Troponin T 120 Min [place] 9.38 (0-15) ng/L Delta Troponin T 0.38 (0-10) ABS# Total Protein (6.6-8.7) g/dL Albumin (3.5-5.2) g/dL Globulin (1.3-4.6) g/dL Lipase (13-60) U/L Urine Color Straw (Yellow) Urine Appearance Clear (CLEAR) Urine pH 8 H (5-7) Ur Specific Gravit y 1.010 (1.005-1.030) Urine Protein Neg (Negative) Urine Glucose (UA) Norm (Normal) Urine Ketones Negative (Negative) Urine Blood Neg (Negative) Urine Nitrate Negative (Negative) Urine Bilirubin Neg (Negative) Prot Sulfosalicyli c Acd Negative (Negative) Urine Urobilinogen Norm (Negative) mg/dL Ur Leukocyte Shelli ase Negative (Negative) Discharge Plan Discharge Patient Disposition: Home Clinical Impression: Labyrinthitis, acute Condition: Stable Prescriptions: New Ativan 1 mg tablet 1 mg PO Q6H PRN (Reason: dizziness) Qty: 14 RF: 0 No Action sotalol [Sotalol AF] 80 mg tablet 80 mg PO DIRECTED Qty: 135 RF: 3 nitroglycerin [Nitrostat] 0.4 mg tablet, sublingual 0.4 mg SUBLINGUAL Q5M PRN (Reason: Chest Pain) RF: 0 warfarin 5 mg tablet 5 mg PO DIRECTED RF: 0 lovastatin 40 mg tablet 40 mg PO DAILY RF: 0 valsartan 80 mg tablet 80 mg PO DAILY Qty: 90 RF: 3 amlodipine 10 mg tablet 10 mg PO DAILY Qty: 90 RF: 3 enoxaparin [Lovenox] 150 mg/mL syringe 150 mg SUBCUT DAILY Qty: 3 RF: 0 potassium chloride 10 mEq tablet extended release 10 meq PO DAILY PRN (Reason: WITH LASIX) RF: 0 furosemide 40 mg tablet 40 mg PO DAILY RF: 0 meclizine 25 mg tablet 25 mg PO TID PRN (Reason: dizziness) Qty: 30 RF: 0 Discharge Orders: Discharge ED (Routine); Ordered 11/01/20 Ordered By: Lázaro Rhodes Referrals: Giorgi Cortes MD [Primary Care Provider] - Sign Out Sign Out Data: Patient Sign Out occurred on 11/01/20 at 06:57. Patient's care was discussed, and care was transferred from Christa Villa to Lázaro Rhodes DO. Sign Out Comment: Case turned over to Dr. Rhodes at change of shift. 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 Fwd Exam Comprehensive
--- NOTE | 2020-11-01 06:46 | ECG_ITS ---
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 Measurements Intervals [place] Rate: 54 P: 48 [place]: 166 QRS: 31 QRSD: 114 T: 74 QT: 434 QTc: 415 Interpretive Statements SINUS BRADYCARDIA POSSIBLE LEFT ATRIAL ENLARGEMENT [-0.1mV P WAVE IN V1/V2] INCOMPLETE RIGHT BUNDLE BRANCH BLOCK [90+ ms QRS DURATION, TERMINAL R IN V1/V2, 40+ ms S IN I/aVL/V4/V5/V6] Compared to ECG 11/01/2020 04:46:43 No significant changes Electronically Signed On 11-01-2020 8:41:59 ECOLOGY PROFESSOR by Ailin Bai M.D. [id number]
[2020-11-01 06:59] LABS: Add Urine Microscopic? NO
[2020-11-01 07:37] LABS: Urine Appearance Clear (CLEAR); Urine Color Straw (Yellow); pH Urine 8 (5-7)
[2020-11-01 07:38] LABS: Bilirubin Urine Neg (Negative); Blood Urine Neg (Negative); Glucose Urine UA Norm (Normal); Ketones Urine Negative (Negative); Leukocyte Esterase Urine Negative (Negative); Nitrate Urine Negative (Negative); Protein Urine Neg (Negative); Sulfosalicylic Acid Urine Negative (Negative); Urobilinogen Urine Norm (Negative)
[2020-11-01 07:50] LABS: Troponin 5 2HR 9.38 ng/L (0-15); Troponin 5 2HR Delta 0.38 ABS# (0-10)
== END 2020-11-01 10:08 | disposition home or self-care (01) ==
PROVIDERS: Emergency Medicine; Emergency Provider Family Medicine; PCP Family Medicine
DX: H83.09 Labyrinthitis, unspecified ear (principal); Z79.01 Long term (current) use of anticoagulants; Z87.891 Personal history of nicotine dependence; I48.91 Unspecified atrial fibrillation; I25.10 Atherosclerotic heart disease of native coronary artery without angina pectoris; I10 Essential (primary) hypertension; E78.5 Hyperlipidemia, unspecified
CPT/HCPCS: 12345; 70450; 70496; 70498; 71045; 80053; 81003; 83690; 83735; 84484; 85025; 93005; 99283; 99284; Q9967

== ENCOUNTER 2020-12-29 13:56 | Outpatient (CLI) | payer SELFPAY ==
[2020-12-29 14:25] LABS: INR 1.55 (0.8-1.2)
== END 2020-12-29 13:57 | disposition home or self-care (01) ==
PROVIDERS: PCP Family Medicine; Visit Provider Internal Medicine Cardiovascular Disease
DX: I48.19 Other persistent atrial fibrillation (principal)
CPT/HCPCS: 36415; 85610

== ENCOUNTER 2021-03-02 11:03 | Outpatient (CLI) | payer SELFPAY ==
--- NOTE | 2021-03-02 11:11 | XRR_ITS ---
PROCEDURE INFORMATION: Exam: XR Lumbosacral Spine Exam date and time: 03/02/2021 11:56 AM Age: 60 years old Clinical indication: Low back pain; Additional info: Lumbar back pain w/radiculopathy TECHNIQUE: Imaging protocol: XR of the lumbosacral spine. Views: 2 or 3 views. COMPARISON: CR Lumbar Spine 2-3 views* [id number] 02/23/2017 2:09 PM FINDINGS: Bones/joints: No spine curvature seen. The normal lumbar lordosis is maintained, without listhesis. No fracture seen. Vertebral body heights are well maintained. There is multilevel degenerative changes, manifested by intervertebral disc space narrowing, endplate osteophytes and facet joint arthrosis. Soft tissues: Unremarkable. XR/XR lumbar spine 2-3V* [id number] IMPRESSION: 1. No acute injury. 2. Degenerative changes of the lumbar spine.
--- NOTE | 2021-03-02 11:11 | XRR_ITS ---
PROCEDURE INFORMATION: Exam: XR Cervical Spine Exam date and time: 03/02/2021 11:56 AM Age: 60 years old Clinical indication: Radicular pain (radiculopathy); Cervical region; Additional info: Cervical radiculopathy TECHNIQUE: Imaging protocol: XR of the cervical spine. Views: 6 or more views. COMPARISON: [place]ervical [place] [id number] 02/23/2017 2:09 PM FINDINGS: Bones/joints: No cervical spine curvature seen. There is straightening of the normal cervical lordosis, without listhesis. Prominent flowing anterior osteophytes, suggestive of DISH. Mild degenerative changes noted, manifested by intervertebral disc space narrowing and facet joint arthrosis, unchanged. Suboptimal position of the oblique views, limiting evaluation of neural foraminal on the left. No significant neural foraminal stenosis on the right. No fracture identified. Vertebral body heights are well maintained. Limited movement in flexion and extension views. No evidence of dynamic instability. Soft tissues: Unremarkable. XR/XR cervical spine min 6V [id number] IMPRESSION: 1. No acute injury. 2. Stable degenerative changes of the cervical spine, without evidence of dynamic instability. 3. Diffuse idiopathic skeletal hyperostosis.
== END 2021-03-02 11:04 | disposition home or self-care (01) ==
PROVIDERS: PCP Family Medicine; Visit Provider Family Medicine
DX: M54.12 Radiculopathy, cervical region (principal); M54.16 Radiculopathy, lumbar region
CPT/HCPCS: 72052; 72100

== ENCOUNTER 2021-06-17 15:23 | Inpatient (IN) | payer SELFPAY ==
[2021-06-17] VITALS (11 sets, daily range): BP systolic 91–131; BP diastolic 58–87; PULSE 74–116; RESP 13–22; TEMP 36.3–37.2; O2SAT 94–98; BMI 41.2
--- NOTE | 2021-06-17 16:22 | ECG_ITS ---
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 Measurements Intervals [place] Rate: 75 P: AR: QRS: 63 QRSD: 112 T: 45 QT: 405 QTc: 452 Interpretive Statements ATRIAL FIBRILLATION INDETERMINATE AXIS INCOMPLETE RIGHT BUNDLE BRANCH BLOCK [90+ ms QRS DURATION, TERMINAL R IN V1/V2, 40+ ms S IN I/aVL/V4/V5/V6] ABNORMAL RHYTHM ECG Compared to ECG 06/17/2021 15:31:21 Left posterior fascicular block no longer present Electronically Signed On 06-17-2021 20:22:17 CDT by Ailin Bai M.D. [id number]
--- NOTE | 2021-06-17 16:22 | XRR_ITS ---
PROCEDURE INFORMATION: Exam: XR Chest Exam date and time: 06/17/2021 4:22 PM Age: 60 years old Clinical indication: Shortness of breath; Additional info: Afib/chf TECHNIQUE: Imaging protocol: XR of the chest. Views: 1 view. COMPARISON: CR XR chest 1V portable [id number] 11/01/2020 4:49 AM FINDINGS: Lungs: Unremarkable. No consolidation. Pleural spaces: Unremarkable. No pleural effusion. No pneumothorax. Heart/Mediastinum: Mild cardiomegaly, similar in appearance to previous exam. Bones/joints: Unremarkable. XR/XR chest 1V portable [id number] IMPRESSION: Stable exam, no acute findings.
--- NOTE | 2021-06-17 16:24 | W.ED.ARRPALP ---
HPI - Arrhythmia/Palpitations General: Chief Complaint: Arrhythmia/Palpitations Stated Complaint: chest pain, sob, fast HR Time Seen by Provider: 06/17/21 15:39 History of Present Illness: HPI narrative: 60-year-old male presents emergency room planing of chest discomfort rapid heart rate. Patient has a known history of atrial fibrillation for which he is on sotalol. He has been taking a full tablet in the morning and half tablet later in the day but lately has been taking more of that he had been on a fishing trip and seem to notice it gets more more out of hand and was having more symptoms. He has had some chest tightness with it as well. Today he slept later than normal and when he got up and showered he felt more short of breath felt like his heart was racing. complaint: heart racing Onset (ago): hour(s) Duration: intermittent Severity: moderate Context: occurred during exertion Arrhythmia history: atrial fibrillation Associated symptoms: Reports short of breath; Deny anxiety, cough, diaphoresis, muscle cramps, nausea, paresthesias, pre-syncope, sense of impending doom, syncope or vomiting Treatments prior to arrival: beta-jose Review of Systems Const: Denies: diaphoresis ENMT: Denies: throat pain, ear or mastoid pain, nasal discharge or nasal congestion Card: Denies: syncope or pre-syncope Resp: Denies: dyspnea, productive cough or non-productive cough GI: Denies: nausea or vomiting : Denies: flank pain, dysuria, urinary frequency or urinary urgency Musc: Denies: muscle cramps Skin/Breast: Denies: rash or pruritus Psych: Denies: anxiety PFSH ED PFSH: Medical History Atrial fibrillation CAD in [place] artery HTN (hypertension) Hyperlipidemia Ischemic cardiomyopathy SHENA (obstructive sleep apnea) Sensorineural hearing loss Surgical History S/P knee surgery S/P PTCA (percutaneous transluminal coronary angioplasty) Family History Mother Myocardial infarction Social History Smoking and tobacco status: former smoker Quit status (tobacco): has quit using tobacco Year quit tobacco: 1980 - 0.5 PPD x 3 Years Second hand smoke exposure: Yes Alcohol intake: former Lives independently: Yes Household members: significant other Marital status: Life Partner Current occupational status: employed 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 Current occupational exposures/hazards: No History of recent travel: No Current gender identity: Male Physical Exam Const: COMMON NORMALS: no acute distress GENERAL APPEARANCE: cooperative and comfortable ORIENTATION/CONSCIOUSNESS: Yes awake, Yes oriented to person, Yes oriented to place and Yes oriented to time HENMT: COMMON NORMALS: normocephalic, atraumatic and hearing grossly normal bilaterally HEAD & SCALP: normocephalic and atraumatic Neck/C-Spine: COMMON NORMALS: no JVD Resp: COMMON NORMALS: normal respiratory effort, No retractions, No use of accessory muscles and clear to auscultation bilaterally AUSCULTATION: clear to auscultation bilaterally Cardio: COMMON NORMALS: no JVD and No murmurs present (Cardio) RATE: tachycardic RHYTHM: abnormal rhythm irregularly irregular GI: COMMON NORMALS: Soft to palpation and No hepatosplenomegaly present AUSCULTATION: Yes normoactive bowel sounds PALPATION: Yes Soft to palpation, No Tenderness to palpation present (GI), No Guarding due to palpation present (GI) and Yes No hepatosplenomegaly present Extremity: COMMON NORMALS: normal to inspection, capillary refill normal, no clubbing, cyanosis or edema, no calf tenderness and no pedal edema Neuro: SENSORIUM/ORIENTATION: Yes oriented to person, Yes oriented to place and Yes oriented to time Skin: COMMON NORMALS: no rashes or lesions noted GENERAL SKIN EXAM: no rashes or lesions noted Course Vital Signs: Vital signs: Vital Signs Temperature 98.0 F 06/20/21 16:06 Pulse Rate 92 06/20/21 16:06 Respiratory Rate 16 06/20/21 16:06 Blood Pressure 130/90 06/20/21 16:06 Pulse Oximetry 96 06/20/21 16:06 MDM - Arrhythmia/Palpitations MDM Narrative: Medical decision making narrative: Viewed EKGs and labs patient presents with Ayleen marrero Dr. ventricular spots difficulty control. Ultimately patient required Cardizem bolus and drip to maintain rate control. We will go ahead and admit him discussed back care Cornelius orders are written. Lab Data: Labs: Lab Results 06/17/21 06/17/21 06/17/21 Range/Units 16:40 16:40 16:40 WBC 9.0 (4.0-10.0) 10^3/ uL RBC 6.05 H (4.1-5.3) 10^6/u L Hgb 16.6 (11.7-16.6) g/dL Hct 52.0 (42.0-52.0) % MCV 86.0 (80-94) fL MCH 27.4 L (28.0-34.0) pg MCHC 31.9 (30.0-36.0) g/dL RDW 13.2 (12.1-15.1) % Plt Count 286 (130-400) 10^3/c mm MPV 10.5 H (7.4-10.4) fL Neut % (Auto) 67.0 % Lymph % (Auto) 19.2 % [place] % (Auto) 7.8 % Eos % (Auto) 4.9 % Baso % (Auto) 0.8 % Neut # (Auto) 6.02 (1.8-7.7) 10^3/u L Lymph # (Auto) 1.7 (0.8-4.8) 10^3/u L [place] # (Auto) 0.7 (0.2-0.9) 10^3/u L Eos # (Auto) 0.4 (0.0-0.8) 10^3/u L Baso # (Auto) 0.1 (0.0-0.1) 10^3/u L Nucleated RBC % (a uto) 0 % Nucleated RBCs # 0.0 /100WBC PT 18.00 H (12.1-14.9) SECO NDS INR 1.45 H (0.8-1.2) APTT 32.5 (23.9-36.7) SECO NDS Sodium 140 (136-145) mmol/L Potassium 3.9 (3.5-5.1) mmol/L Chloride 106 (98-107) mmol/L Carbon Dioxide 23 (22-29) mmol/L Anion Gap 14.9 (5-19) BUN 13 (6-20) mg/dL Creatinine 0.8 (0.7-1.2) mg/dL GFR Calculation 98.9 (90-130) mL/min Glucose 93 (65-115) mg/dL Calculated Osmolal ity 290 (285-295) mOsm/k g Calcium 8.5 (8.5-10.5) mg/dL Total Bilirubin 0.8 (0.15-1.2) mg/dL AST 16 (0-40) U/L ALT 16 (0-41) U/L Alkaline Phosphata se 97 (40-130) IU/L Troponin T Baselin e (0-15) ng/L Troponin T 120 Min adonis (0-15) ng/L Delta Troponin T (0-10) ABS# NT-Pro-B Natriuret Pep 138 H (0-125) pg/mL Total Protein 7.0 (6.6-8.7) g/dL Albumin 4.0 (3.5-5.2) g/dL Globulin 3.0 (1.3-4.6) g/dL 06/17/21 06/17/21 Range/Units 16:40 18:50 WBC (4.0-10.0) 10^3/ uL RBC (4.1-5.3) 10^6/u L Hgb (11.7-16.6) g/dL Hct (42.0-52.0) % MCV (80-94) fL MCH (28.0-34.0) pg MCHC (30.0-36.0) g/dL RDW (12.1-15.1) % Plt Count (130-400) 10^3/c mm MPV (7.4-10.4) fL Neut % (Auto) % Lymph % (Auto) % [place] % (Auto) % Eos % (Auto) % Baso % (Auto) % Neut # (Auto) (1.8-7.7) 10^3/u L Lymph # (Auto) (0.8-4.8) 10^3/u L [place] # (Auto) (0.2-0.9) 10^3/u L Eos # (Auto) (0.0-0.8) 10^3/u L Baso # (Auto) (0.0-0.1) 10^3/u L Nucleated RBC % (a uto) % Nucleated RBCs # /100WBC PT (12.1-14.9) SECO NDS INR (0.8-1.2) APTT (23.9-36.7) SECO NDS Sodium (136-145) mmol/L Potassium (3.5-5.1) mmol/L Chloride (98-107) mmol/L Carbon Dioxide (22-29) mmol/L Anion Gap (5-19) BUN (6-20) mg/dL Creatinine (0.7-1.2) mg/dL GFR Calculation (90-130) mL/min Glucose (65-115) mg/dL Calculated Osmolal ity (285-295) mOsm/k g Calcium (8.5-10.5) mg/dL Total Bilirubin (0.15-1.2) mg/dL AST (0-40) U/L ALT (0-41) U/L Alkaline Phosphata se (40-130) IU/L Troponin T Baselin e 16 H (0-15) ng/L Troponin T 120 Min adonis 18.21 H (0-15) ng/L Delta Troponin T 2.21 (0-10) ABS# NT-Pro-B Natriuret Pep (0-125) pg/mL Total Protein (6.6-8.7) g/dL Albumin (3.5-5.2) g/dL Globulin (1.3-4.6) g/dL Discharge Plan Discharge Patient Disposition: Admitted As Inpatient Admit Provider: Dov Cornelius Clinical Impression: Atrial fibrillation Condition: Stable Coding Level of Care Code 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
[2021-06-17 16:50] LABS: Basophils # 0.1 10^3/uL (0.0-0.1); Basophils % 0.8 %; Eosinophils # 0.4 10^3/uL (0.0-0.8); Eosinophils % 4.9 %; Hemoglobin 16.6 g/dL (11.7-16.6); Lymphocytes # 1.7 10^3/uL (0.8-4.8); Lymphocytes % 19.2 %; Mean Corpuscular HGB Conc 31.9 g/dL (30.0-36.0); Mean Corpuscular Hemoglobin 27.4 pg (28.0-34.0); Mean Platelet Volume 10.5 fL (7.4-10.4); Monocytes # 0.7 10^3/uL (0.2-0.9); Monocytes % 7.8 %; Neutrophils # 6.02 10^3/uL (1.8-7.7); Nucleated Red Blood Cells % 0 %; Platelet Count 286 10^3/cmm (130-400); Red Blood Count 6.05 10^6/uL (4.1-5.3); Red Cell Distribution Width 13.2 % (12.1-15.1)
[2021-06-17 17:01] LABS: INR 1.45 (0.8-1.2)
[2021-06-17 17:02] LABS: Partial Thromboplastin Time 32.5 SECONDS (23.9-36.7)
[2021-06-17 17:11] LABS: Troponin(5th) Baseline 16 ng/L (0-15)
[2021-06-17 17:19] LABS: Alanine Aminotransferase 16 U/L (0-41); Alkaline Phosphatase 97 IU/L (40-130); Anion Gap 14.9 (5-19); Aspartate Amino Transferase 16 U/L (0-40); Blood Urea Nitrogen 13 mg/dL (6-20); Calcium 8.5 mg/dL (8.5-10.5); Carbon Dioxide 23 mmol/L (22-29); Chloride 106 mmol/L (98-107); Glomerular Filtration Rate 98.9 mL/min (90-130); Glucose 93 mg/dL (65-115); NT Pro B Type Natriuretic Pept 138 pg/mL (0-125); Osmolality Calculated 290 mOsm/kg (285-295); Potassium 3.9 mmol/L (3.5-5.1); Sodium 140 mmol/L (136-145); Total Bilirubin 0.8 mg/dL (0.15-1.2)
--- NOTE | 2021-06-17 17:39 | PC.PHAR ---
PT STATES HE TAKES CARE OF HIS OWN MEDICATIONS-PT BROUGHT IN MEDICATION BOTTLES-PT STATES HE IS UNSURE IF HE TAKES LOSARTAN-RX FILLED ON 05/11/21 90D/S-PT DIDNT BRING IN MED BOTTLE-RX WRITTEN FOR KCL 10MEQ PO QD PRN-PT STATES HE HAS BEEN TAKING 10MEQ ABOUT THREE TIMES A WEEK-PT BROUGHT IN MED BOTTLE DATED 03/02/21 SOTALOL AF Take 80mg (1 tab) in Am and 40mg (0.5 tab) in PM -PT STATES HES BEEN TAKING 40MG BID BUT TODAY TOOK A 80MG TAB-PT STATES HE TOOK MORE TODAY OF HIS WARFARIN BUT SHOULDVE TOOK 5MG TODAY-PT BROUGHT IN MED BOTTLE DATED 03/03/21 5MG PO ON TUES AND SAT AND 7.5MG ON TUE,TUE,TH,FRI,AND SUN-PT STATES DR MENDEZ HAD CHANGED IT TO 5MG PO ON SUN,SAT, AND WED 7.5MG PO ON MON,TUES,THURS,FRI STATES THE CHANGE HAPPENED A MONTH AGO AND HE WAS SUPPOSE TO GO BACK AND HAVE AN INR BUT HASNT WENT BACK-NOTES ARE MADE IN THE PHARMACY COMMENTS
--- NOTE | 2021-06-17 18:22 | ECG_ITS ---
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 Measurements Intervals [place] Rate: 122 P: [place]: QRS: 145 QRSD: 103 T: 57 QT: 313 QTc: 448 Interpretive Statements ATRIAL FIBRILLATION WITH RAPID VENTRICULAR RESPONSE INDETERMINATE AXIS INCOMPLETE RIGHT BUNDLE BRANCH BLOCK [90+ ms QRS DURATION, TERMINAL R IN V1/V2, 40+ ms S IN I/aVL/V4/V5/V6] LEFT POSTERIOR FASCICULAR BLOCK [QRS AXIS > 109, INFERIOR Q] Compared to ECG 11/01/2020 06:55:51 Indeterminate axis now present Left posterior fascicular block now present Sinus bradycardia no longer present Electronically Signed On 06-18-2021 12:38:08 CDT by Ailin Bai M.D. [id number]
--- NOTE | 2021-06-17 19:32 | PM.HP ---
Providers/Chief Complaint Primary Care Provider: Giorgi Cortes MD Chief Complaint: chest pain, sob, fast HR History of Present Illness Dariel Peck is a 60 year old male with past medical history of hypertension , coronary artery disease status post stent , Covid , obstructive sleep apnea, came in with chief complaint of racing of heart started this morning after the shower, accompanied with chest tightness. On arrival in the ER he was worked up for above-mentioned complaint. Pertinent imaging studies: X-ray chest: Unremarkable, no infiltrates. EKG: A. fib with RVR: with rate in 120s. pertinent Labs: Troponin T: Baseline: 16, 2-hour troponin:18.21, 2-hour delta:2.21 , proBNP:138 PT/INR: 18/1.45 . Pertinent prior studies: CAG : ( : 10/29/20 ) : LM has 0% stenosis. LAD has 0% stenosis. RCA has 0% stenosis. CV echo: 06/13/2020: Normal left ventricular size and systolic function, EF 63 %. No regional wall motion abnormalities. Thickened aortic valve. No significant stenotic or regurgitant lesions. Review of Systems Const: Denies: fever(s), chills, body aches, change in appetite or diaphoresis Card: Denies: edema, swelling of feet/ankles, orthopnea or leg pain with exertion Resp: Denies: productive cough, wheezing or pain on inspiration GI: Denies: abdominal pain, nausea, vomiting, diarrhea or constipation : Denies: flank pain or difficulty urinating Musc: Denies: back pain, extremity pain or extremity swelling Neuro: Denies: difficulty walking or confusion Medications/Allergies Home Medications Medication Instructions Recorded Confirmed Last Taken Type amlodipine 10 mg tablet 10 mg PO DAILY #90 tab 09/01/20 06/17/21 06/17/21 13:00 Rx nitroglycerin 0.4 mg sublingual 0.4 mg SUBLINGUAL Q5M PRN #60 tab 11/03/20 06/17/21 Unknown Rx tablet furosemide 40 mg tablet 40 mg PO DAILY PRN #90 tab 12/29/20 06/17/21 Unknown Rx lovastatin 40 mg tablet 40 mg PO DAILY 12/29/20 06/17/21 06/17/21 13:00 History Protonix 40 mg PO DAILY PRN 06/17/21 06/17/21 Unknown History Sotalol AF 40 mg PO BID 06/17/21 06/17/21 06/17/21 13:00 History 80 MG losartan 100 mg PO DAILY 06/17/21 06/17/21 Unknown History magnesium oxide 400 mg PO DAILY 06/17/21 06/17/21 Unknown History potassium chloride 10 meq PO .THREE TIMES A WEEK 06/17/21 06/17/21 06/14/21 History valsartan 80 mg PO DAILY 06/17/21 06/17/21 06/17/21 13:00 History warfarin See Rx Instructions .ROUTE .COMPLEX 06/17/21 06/17/21 06/17/21 History 7.5MG Allergies Allergy/AdvReac Type Severity Reaction Status Date / Time morphine Allergy ADR-Vomitin Verified 06/17/21 17:38 g PFSH Acute PFSH: Medical History Atrial fibrillation CAD in [place] artery HTN (hypertension) Hyperlipidemia Ischemic cardiomyopathy SHENA (obstructive sleep apnea) Sensorineural hearing loss Surgical History S/P knee surgery S/P PTCA (percutaneous transluminal coronary angioplasty) Family History Mother Myocardial infarction Social History Smoking and tobacco status: former smoker Quit status (tobacco): has quit using tobacco Year quit tobacco: 1980 - 0.5 PPD x 3 Years Second hand smoke exposure: Yes Alcohol intake: former Lives independently: Yes Household members: significant other Marital status: Life Partner Current occupational status: employed 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 Current occupational exposures/hazards: No History of recent travel: No Current gender identity: Male Vitals/I&O/Wt Last Vital Signs Temp 98.9 F 06/17/21 16:13 Pulse 82 06/17/21 19:18 Resp 15 06/17/21 19:18 BP 131/86 06/17/21 19:18 Pulse Ox 98 06/17/21 19:18 06/17/21 06/17/21 06/17/21 06:59 14:59 22:59 Intake Total Balance Weight last 48 hrs Weight 149.685 kg Physical Exam Const: COMMON NORMALS: patient oriented x3 HENMT: COMMON NORMALS: normocephalic and atraumatic HEAD & SCALP: normocephalic and atraumatic Eye: GENERAL EYE: appearance normal, both eyes and all related structures Chest: COMMONS NORMALS: normal inspection of the chest and normal palpation of entire chest wall CHEST: Yes Symmetrical chest wall rise Resp: COMMON NORMALS: normal respiratory effort, No retractions, No use of accessory muscles and clear to auscultation bilaterally EFFORT & INSPECTION: Yes symmetric chest movement AUSCULTATION: clear to auscultation bilaterally Cardio: OTHER: Irregularly irregular rhythm, S1-S2 variable intensity, no murmur, rub or gallop appreciated GI: COMMON NORMALS: Normal to inspection, nondistended, normoactive bowel sounds present, Soft to palpation, non-tender, No hepatosplenomegaly present and no masses AUSCULTATION: Yes normoactive bowel sounds PALPATION: Yes Soft to palpation and Yes No hepatosplenomegaly present RECTAL EXAM: Yes deferred Extremity: COMMON NORMALS: no clubbing, cyanosis or edema and no pedal edema Neuro: COMMON NORMALS: patient oriented x3 Data : 06/17/21 16:40 06/17/21 16:40 A&P Assessment and plan (1) Atrial fibrillation with RVR: Patient presented with A. fib with RVR: He was started on Cardizem drip in the ER: TSH: 2D echo: Received sotalol 80 one-time dose; Continue sotalol 40 mg p.o. twice daily Cardizem 30 mg p.o. every 6h. Telemetry monitoring Status: Acute (2) HTN (hypertension): Status: Acute Qualifiers: Hypertension type: essential hypertension Qualified Code(s): I10 - Essential (primary) hypertension (3) Carotid artery disease: Status: Acute Qualifiers: Laterality: unspecified laterality Attestations Medical Necessity Statement*: Patient Needs to be in hospital for management of A. fib with RVR. Anticipated length of stay greater than 2 midnights. 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
[2021-06-17 19:40] LABS: Troponin 5 2HR 18.21 ng/L (0-15); Troponin 5 2HR Delta 2.21 ABS# (0-10)
[2021-06-17] MEDS: sotalol 80 mg Tablet PO (20:06)
--- NOTE | 2021-06-17 20:08 | PC.NURSE ---
Per Dr Cornelius - verbal order of 80 mg PO sotalol
[2021-06-17] MEDS: warfarin 5 mg Tablet PO (21:13)
[2021-06-17] MEDS: dilTIAZem 30 mg Tablet PO (21:47)
--- NOTE | 2021-06-17 22:22 | ECG_ITS ---
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 Measurements Intervals [place] Rate: 77 P: [place]: QRS: 38 QRSD: 126 T: 65 QT: 434 QTc: 494 Interpretive Statements ATRIAL FIBRILLATION RIGHT VENTRICULAR CONDUCTION DELAY [RSR (QR) IN V1/V2] PROLONGED QT INTERVAL Compared to ECG 06/17/2021 18:40:58 Prolonged QT interval now present Incomplete right bundle-branch block no longer present Electronically Signed On 06-18-2021 9:56:02 CDT by Hamzah Luis M.D. [id number]
[2021-06-17 23:30] LABS: Troponin 5 6HR 16.34 ng/L (0-15); Troponin 5 6HR Delta 0.34 ng/L (0-12)
[2021-06-18] VITALS (8 sets, daily range): BP systolic 92–158; BP diastolic 60–90; PULSE 75–88; RESP 16–19; TEMP 36.5–37.1; O2SAT 94–96
[2021-06-18] MEDS: dilTIAZem 30 mg Tablet PO ×4 (01:38→20:35)
[2021-06-18 04:53] LABS: Basophils # 0.1 10^3/uL (0.0-0.1); Basophils % 0.7 %; Eosinophils # 0.5 10^3/uL (0.0-0.8); Eosinophils % 5.9 %; Hematocrit 50.5 % (42.0-52.0); Lymphocytes # 2.2 10^3/uL (0.8-4.8); Lymphocytes % 25.9 %; Mean Corpuscular HGB Conc 31.7 g/dL (30.0-36.0); Mean Corpuscular Hemoglobin 27.8 pg (28.0-34.0); Mean Corpuscular Volume 87.7 fL (80-94); Mean Platelet Volume 10.5 fL (7.4-10.4); Monocytes # 0.8 10^3/uL (0.2-0.9); Monocytes % 9.2 %; Neutrophils # 4.82 10^3/uL (1.8-7.7); Neutrophils % 58.1 %; Nucleated Red Blood Cells % 0 %; Platelet Count 265 10^3/cmm (130-400); Red Blood Count 5.76 10^6/uL (4.1-5.3); Red Cell Distribution Width 13.5 % (12.1-15.1); White Blood Count 8.3 10^3/uL (4.0-10.0)
[2021-06-18 04:59] LABS: INR 1.43 (0.8-1.2)
[2021-06-18 05:21] LABS: Alanine Aminotransferase 15 U/L (0-41); Albumin Level 3.7 g/dL (3.5-5.2); Alkaline Phosphatase 99 IU/L (40-130); Anion Gap 16.2 (5-19); Aspartate Amino Transferase 15 U/L (0-40); Blood Urea Nitrogen 12 mg/dL (6-20); Calcium 8.2 mg/dL (8.5-10.5); Carbon Dioxide 24 mmol/L (22-29); Chloride 104 mmol/L (98-107); Globulin 2.3 g/dL (1.3-4.6); Glomerular Filtration Rate 98.9 mL/min (90-130); Glucose 94 mg/dL (65-115); Magnesium 2.1 mg/dL (1.7-2.3); NT Pro B Type Natriuretic Pept 970 pg/mL (0-125); Osmolality Calculated 290 mOsm/kg (285-295); Potassium 4.2 mmol/L (3.5-5.1); Sodium 140 mmol/L (136-145); Thyroid Stimulating Hormone 2.78 uIU/mL (0.27-4.20); Total Bilirubin 0.7 mg/dL (0.15-1.2)
[2021-06-18] MEDS: sotalol 80 mg Tablet 40 MG PO ×2 (09:04→14:04)
[2021-06-18] MEDS: atorvastatin 40 mg Tablet 20 MG PO (09:04)
[2021-06-18] MEDS: magnesium oxide 400 mg tablet PO (09:04)
[2021-06-18] MEDS: losartan 50 mg Tablet 100 MG PO (09:05)
--- NOTE | 2021-06-18 09:41 | PC.NURSE ---
Shift Note Frequent safety and comfort rounds continue. Orders and/or nursing care completed as indicated. Patient monitored for response to intervention and treatment(telemetry monitoring, BP monitoring). Education provided includes[med education on sotalol]. Patient and/or manufacturers service representative[states understanding]. Will continue to monitor. HR and rhythm
--- NOTE | 2021-06-18 11:10 | PC.CHAP ---
Pastoral Care Encounter/Spiritual Assessment Type of Contact [] Declined encapsulator visit [] Patient/Family/Request visit [] Outpatient visit [] Follow-up visit [] Physician referral [] Code/Alert [x] Routine visit [] Staff referral [] Actively dying [] Patient sleeping [] Family support [] [] Out of room [] Palliative care [] [x] Receiving care in room [] Pre-surgical visit [] Trauma [] Long length of stay [] ICU visit [] Other: Relational/Emotional Strength [x] Patient feels connected with others/family/visitors/staff [] Distress [] Loneliness/isolation [] Abandonment Spirituality of Patient [x] Person of Laura [] Attends Anabaptism of their Laura [x] Believes in Prayer [] Reads Bible or Denominational materials [] There are Spiritual issues to be addressed Sales Product Specialist Interventions [x] Prayer [x] Active listening [x] Non-anxious presence [x] Spiritual/emotional support [] Crisis/trauma care [x] Spiritual counseling [] Bereavement support [] Provided bereavement packet [] Provided Bible/devotional materials [] Provided toy/stuffed animal, coloring book to patient or family member [] Provided Communion [] Anointing/Wiggins [] Salvation [x] Completed spiritual assessment [] Other: Impact on Illness or Injury [] Angry [] Fearful [] Anxious [] Often cries [] Exhaustion [] Unable to work [] Unable to attend pentecostalism [] Unable to walk/stand [] Unable to read [] Unable to drive [] Unable to eat/drink [] Unable to sleep [] Unable to be with family [] Patient intubated [] Other: Summary heart aveb hillary need a change Meds, feels good will check with doctor and is going home and back to work has a good attitude Time spent with patient
--- NOTE | 2021-06-18 12:20 | PM.PN ---
Subjective Subjective: Interval history: Patient was seen and examined this morning, h/r is better controlled today varying from 80-90,though he continues to be in A. fib. Medications: Reviewed: Yes Vitals/I&O/Wt Last Vital Signs Temp 98.6 F 06/18/21 11:26 Pulse 82 06/18/21 11:26 Resp 19 H 06/18/21 11:26 BP 120/71 06/18/21 11:26 Pulse Ox 96 06/18/21 11:26 06/17/21 06/18/21 06/18/21 22:59 06:59 14:59 Intake Total 512 / 512 123.75 / 635.75 120 / 120 Output Total 250 / 250 225 / 225 Balance 512 / 512 -126.25 / 385.75 -105 / -105 Weight last 48 hrs Weight 149.685 kg Physical Exam Const: COMMON NORMALS: patient oriented x3 HENMT: COMMON NORMALS: normocephalic and atraumatic HEAD & SCALP: normocephalic and atraumatic Eye: GENERAL EYE: appearance normal, both eyes and all related structures Chest: COMMONS NORMALS: normal inspection of the chest and normal palpation of entire chest wall CHEST: Yes Symmetrical chest wall rise Resp: COMMON NORMALS: normal respiratory effort, No retractions, No use of accessory muscles and clear to auscultation bilaterally EFFORT & INSPECTION: Yes symmetric chest movement AUSCULTATION: clear to auscultation bilaterally Cardio: OTHER: Irregularly irregular rhythm, S1-S2 variable intensity, no murmur, rub or gallop appreciated GI: COMMON NORMALS: Normal to inspection, nondistended, normoactive bowel sounds present, Soft to palpation, non-tender, No hepatosplenomegaly present and no masses AUSCULTATION: Yes normoactive bowel sounds PALPATION: Yes Soft to palpation and Yes No hepatosplenomegaly present RECTAL EXAM: Yes deferred Extremity: COMMON NORMALS: no clubbing, cyanosis or edema and no pedal edema Neuro: COMMON NORMALS: patient oriented x3 Data : 06/18/21 03:23 06/18/21 03:23 A&P Assessment and plan (1) Atrial fibrillation with RVR: Patient presented with A. fib with RVR: He was started on Cardizem drip in the ER: TSH:2.78 2D echo: Received sotalol 80 one-time dose; Continue sotalol 80 mg p.o. twice daily Cardizem 30 mg p.o. every 6h. Telemetry monitoring Status: Acute (2) HTN (hypertension): Status: Acute Qualifiers: Hypertension type: essential hypertension Qualified Code(s): I10 - Essential (primary) hypertension (3) Carotid artery disease: Status: Acute Qualifiers: Laterality: unspecified laterality Attestations Medical Necessity Statement*: Patient needs to be in hospital for the management of A Fib with RVR. 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
--- NOTE | 2021-06-18 18:14 | P.CONIM_ITS ---
Providers/Reason For Consult Consulting Physician/Specialty*: Dr. Bai, cardiology Reason for Consult*: Atrial fibrillation with rapid ventricular response Attending Physician: Dov Cornelius MD Primary Care Provider: Giorgi Cortes MD History of Present Illness History of Present Illness Dariel Peck is a 60 year old male with past medical history of paroxysmal A. fib on sotalol and coumadin, CAD with history of LAD stenting, CHF, hypertension, hyperlipidemia, morbid obesity, obstructive sleep apnea non compliant to CPAP and gastroesophageal reflux disease. 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 He was admitted yesterday with complaints of dizziness, shortness of breath and A. fib with RVR with heart rate in 120s. Baseline troponin of 16 which increased to 18.2. EKG showed A. fib with RVR with heart rate at 122 bpm. Indeterminate axis. Incomplete right bundle branch block. Left posterior fascicular block. QRS duration 103 ms, QT/QTc 313/448 ms. He was placed on cardizem gtt, sotalol was increased to 80 mg BID and cardizem gtt changed to PO cardizem. He remains in A. fib with HR fairly controlled. I have been asked to evaluate and assist in further management. Review of Systems Const: Denies: fever(s), chills, body aches, change in appetite or diaphoresis Card: Denies: edema, swelling of feet/ankles, orthopnea or leg pain with exertion Resp: Denies: productive cough, wheezing or pain on inspiration GI: Denies: abdominal pain, nausea, vomiting, hematemesis, diarrhea, constipation, hematochezia or melena : Denies: flank pain or difficulty urinating Musc: Reports: extremity swelling; Denies: back pain or extremity pain Neuro: Denies: difficulty walking or confusion Psych: Denies: anxiety or depression Temo/Lymph: Reports: purpura; Denies: petechiae Meds/Allergies Home Medications and Allergies Home Medications Medication Instructions Recorded Confirmed Last Taken Type amlodipine 10 mg tablet 10 mg PO DAILY #90 tab 09/01/20 06/17/21 06/17/21 13:00 Rx nitroglycerin 0.4 mg sublingual 0.4 mg SUBLINGUAL Q5M PRN #60 tab 11/03/20 06/17/21 Unknown Rx tablet furosemide 40 mg tablet 40 mg PO DAILY PRN #90 tab 12/29/20 06/17/21 Unknown Rx lovastatin 40 mg tablet 40 mg PO DAILY 12/29/20 06/17/21 06/17/21 13:00 History Protonix 40 mg PO DAILY PRN 06/17/21 06/17/21 Unknown History Sotalol AF 40 mg PO BID 06/17/21 06/17/21 06/17/21 13:00 History 80 MG losartan 100 mg PO DAILY 06/17/21 06/17/21 Unknown History magnesium oxide 400 mg PO DAILY 06/17/21 06/17/21 Unknown History potassium chloride 10 meq PO .THREE TIMES A WEEK 06/17/21 06/17/21 06/14/21 History valsartan 80 mg PO DAILY 06/17/21 06/17/21 06/17/21 13:00 History warfarin See Rx Instructions .ROUTE .COMPLEX 06/17/21 06/17/21 06/17/21 History 7.5MG Allergies Allergy/AdvReac Type Severity Reaction Status Date / Time morphine Allergy ADR-Vomitin Verified 06/17/21 17:38 g Current Medications Current Medications Generic Name Dose Route Start Last Admin Trade Name Freq PRN Reason Stop Dose Admin Atorvastatin Calcium 20 mg 06/18/21 09:00 06/18/21 09:04 Atorvastatin 40 Mg Tablet PO 20 mg DAILY MARGOT Administration Diltiazem HCl 30 mg 06/17/21 19:30 06/18/21 14:04 Diltiazem 30 Mg Tablet PO 30 mg Q6H MARGOT Administration Diltiazem HCl 125 mg/ Sodium 125 mls @ 0 mls/hr 06/17/21 16:30 06/18/21 00:03 Chloride IV 0 mg/hr .Q0M MARGOT 0 mls/hr Titration Protocol Per Protocol Losartan Potassium 100 mg 06/18/21 09:00 06/18/21 09:05 Losartan 50 Mg Tablet PO 100 mg DAILY MARGOT Administration Magnesium Oxide 400 mg 06/18/21 09:00 06/18/21 09:04 Magnesium Oxide 400 Mg Tablet PO 400 mg DAILY MARGOT Administration Warfarin Sodium 5 mg 06/17/21 19:30 06/17/21 21:13 Warfarin 5 Mg Tablet PO 5 mg SuWeSa@1400 MARGOT Administration Warfarin Sodium 7.5 mg 06/18/21 14:00 06/18/21 14:10 Warfarin 7.5 Mg Tablet PO 7.5 mg MoTuThFr@1400 MARGOT Administration PFSH Acute PFSH: Medical History Atrial fibrillation CAD in [place] artery HTN (hypertension) Hyperlipidemia Ischemic cardiomyopathy SHENA (obstructive sleep apnea) Sensorineural hearing loss Surgical History S/P knee surgery S/P PTCA (percutaneous transluminal coronary angioplasty) Family History Mother Myocardial infarction Social History Smoking and tobacco status: former smoker Quit status (tobacco): has quit using tobacco Year quit tobacco: 1979 - 0.5 PPD x 3 Years Second hand smoke exposure: Yes Alcohol intake: former Lives independently: Yes Household members: significant other Marital status: Life Partner Current occupational status: employed 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 Current occupational exposures/hazards: No History of recent travel: No Current gender identity: Male Vitals/I&O/Wt Last Vital Signs Temp 97.8 F 06/18/21 16:22 Pulse 88 06/18/21 16:22 Resp 16 06/18/21 16:22 BP 126/76 06/18/21 16:22 Pulse Ox 94 06/18/21 16:22 06/18/21 06/18/21 06/18/21 06:59 14:59 22:59 Intake Total 123.75 / 635.75 360 / 360 240 / 600 Output Total 250 / 250 225 / 225 200 / 425 Balance -126.25 / 385.75 135 / 135 40 / 175 Weight last 48 hrs Weight 330 lb Physical Exam Narrative: EXAM NARRATIVE: GENERAL: obese man sitting in bed in no acute distress HEENT: Pupils equal round reactive to light. No pallor or icterus. NECK: No JVD. No carotid bruit. CARDIOVASCULAR SYSTEM: S1-S2 irregular. No murmur rubs or gallops. RESPIRATORY SYSTEM: Chest clear to auscultation. No wheezes rhonchi or rubs heard. No use of accessory muscles. ABDOMEN: Soft, obese, nontender and nondistended. Normal bowel sounds present. EXTREMITIES: No cyanosis or clubbing. Trace edema. No signs of chronic venous insufficiency. CERTIFIED MASSAGE THERAPIST: Patient is alert oriented ?3. No focal neurological deficits. SKIN: Normal turgor and temperature. PSYCH: Normal insight and judgment. Data Other Data: Other data: 11/01/20 HEAD/NECK CTA IMPRESSION: Mild atherosclerotic calcification at the origins of the internal carotid arteries but less than 50% stenosis. 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 * LAD has 0% stenosis. * RCA has 0% stenosis. * pCIRC to mCIRC: Severe 100% stenosis, MITCH: 0 flow. * 3rd RPL to 3rd OM collateralization. * Coronary angiography shows right dominance. Conclusions 1. There is severe coronary artery disease with one vessel disease. Patent previously placed mid LAD stent without significant in-stent restenosis . A&P Assessment and plan (1) Atrial fibrillation with RVR: Paroxysmal A. fib on rate control startegy. -continue on sotalol 80 mg BID with EKG post for monitoring. -INR subtherapeutic. receiving additional warfarin. -maintain electrolytes with potassium>4 and Mg >2. Status: Acute (2) Heart failure: HFpEF -restart home lasix, uses prn at home. -severe LVH on echo today. Status: Acute Qualifiers: Heart failure chronicity: chronic Heart failure type: diastolic Qualified Code(s): I50.32 - Chronic diastolic (congestive) heart failure (3) HTN (hypertension): Status: Acute Qualifiers: Hypertension type: essential hypertension Qualified Code(s): I10 - Essential (primary) hypertension (4) Sleep apnea: Status: Acute Qualifiers: Sleep apnea type: obstructive Qualified Code(s): G47.33 - Obstructive sleep apnea (adult) (pediatric) Additional A&P Information Subtherapeutic INR GERD Thank you for allowing me to participate in patient's care. Please feel free to call with questions or concerns. Consult Attestations Time Spent in Patient Care: 16 - 35 minutes (>than 50% of time spent in counselling and/or direct pt care on unit) . Coding Level of Care Code Acute Rn Hemodialysis for Chg Fwd Diagnoses Atrial fibrillation with RVR I48.91 Heart failure I50.32 Heart failure chronicity: chronic Heart failure type: diastolic HTN (hypertension) I10 Hypertension type: essential hypertension Sleep apnea G47.33 Sleep apnea type: obstructive
[2021-06-18] MEDS: warfarin 5 mg Tablet 10 MG PO (18:19)
[2021-06-18] MEDS: sotalol 80 mg Tablet PO (18:20)
--- NOTE | 2021-06-18 18:56 | PC.NURSE ---
Shift Note Frequent safety and comfort rounds continue. Orders and/or nursing care completed as indicated. Patient monitored for response to intervention and treatment(increased dose of sotalol). Education provided includes[med education regarding effects, side effects and monitoring in use of sotalol and warfarin]. Patient and/or labor relations representative [states understanding]. Will continue to monitor cardiac rhythm and HR.
--- NOTE | 2021-06-18 20:26 | ECG_ITS ---
[facility] Test Date: 2021-06-19 Pat Name: Dariel Peck Department: Room: 112 Gender: Male Director Of Group Sales: : 1960 Requested By: Ailin Bai Order Number: [id number] Brianna MD: Ailin Bai M.D. Measurements Intervals [place] Rate: 83 P: [place]: QRS: 170 QRSD: 108 T: 43 QT: 404 QTc: 477 Interpretive Statements ATRIAL FIBRILLATION INDETERMINATE AXIS INCOMPLETE RIGHT BUNDLE BRANCH BLOCK [90+ ms QRS DURATION, TERMINAL R IN V1/V2, 40+ ms S IN I/aVL/V4/V5/V6] Compared to ECG 06/17/2021 22:59:59 Indeterminate axis now present Incomplete right bundle-branch block now present Prolonged QT interval no longer present Electronically Signed On 06-19-2021 16:45:57 CDT by Ailin Bai M.D. [id number]
--- NOTE | 2021-06-18 20:41 | USCV_ITS ---
Dariel Peck Age: 60 Gender: M : 1960 Exam Date: 06/18/2021 05:32 Ordering Phys: Dov Cornelius MD Technologist: Dominique Cottrell [place] [facility] [place]: Atrial fibrillation, CHEST PRESSURE. CARDIAC HISTORY OF 2 STENTS BP: 106 / 77 HR: 76 Rhythm: Atrial fibrillation Technical Quality: Adequate MEASUREMENTS (Male / Female) Normal Values 2D ECHO LV Diastolic Diameter PLAX 4.1 cm 4.2 - 5.9 / 3.9 - 5.3 cm LV Systolic Diameter PLAX 3.4 cm LV Chamber Size 3.4 cm IVS Diastolic Thickness 1.7 cm 0.6 - 1.0 / 0.6 - 0.9 cm IVS Systolic Thickness 2.3 cm LVPW Diastolic Thickness 2.0 cm 0.6 - 1.0 / 0.6 - 0.9 cm LVPW Systolic Thickness 1.9 cm RV Chamber Size 2.8 cm LVOT Diameter 2.0 cm LV Ejection Fraction 2D Teich 31.7 % LV Ejection Fraction MOD 2C 20.7 % LV Ejection Fraction 2C AL 22.2 % LA Diameter 4.6 cm LA Width 3.8 cm LA Height 6.0 cm RA Width 3.7 cm RA Height 5.2 cm Aorta at Sinotubular Diameter 3.0 cm M-MODE LV Diastolic Diameter MM 4.2 cm 4.2 - 5.9 / 3.9 - 5.3 cm LV Systolic Diameter MM 2.6 cm LV Ejection Fraction MM Teich 69.6 % IVS Diastolic Thickness MM 1.1 cm 0.6 - 1.0 / 0.6 - 0.9 cm IVS Systolic Thickness MM 1.8 cm LVPW Diastolic Thickness MM 1.5 cm 0.6 - 1.0 / 0.6 - 0.9 cm LVPW Systolic Thickness MM 2.1 cm Aortic Annulus Diameter 3.5 cm LA Ao Ratio MM 1.4 MV E Point Septal Separation 0.4 cm DOPPLER AV Peak Velocity 165.3 cm/s LVOT Peak Velocity 84.7 cm/s AV Area Cont Eq vti 1.8 cm squared AV Area Cont Eq pk 1.7 cm squared MV Area PHT 4.6 cm squared MV E' Velocity 44.5 cm/s Mitral E to MV E' Ratio 7.1 Mitral E to LV E' Lateral Ratio 7.1 Mitral E to LV E' Septal Ratio 7.0 TR Peak Velocity 115.1 cm/s TR Peak Gradient 5.3 mmHg TR Mean Velocity 77.4 cm/s TR Mean Gradient 2.6 mmHg TR Velocity Time Integral 27.7 cm TV Peak E Velocity 71.0 cm/s Right Atrial Pressure 3.0 mmHg Pulmonary Artery Systolic Pressu 8.3 mmHg PV Peak Velocity 86.0 cm/s RV Acceleration Time 0.2 s RV Ejection Time 0.3 s RV AcT/ET 0.7 FINDINGS Left Ventricle Small left ventricular cavity size. Severely increased left ventricular wall thickness. Severe concentric left ventricular hypertrophy. Normal left ventricular systolic function. Left ventricular ejection fraction is estimated at 60 %. No regional wall motion normality. Rhythm precludes evaluation of diastolic function. Right Ventricle Normal right ventricular size and systolic function. RVSP could not be calculated due to incomplete tricuspid regurgitation velocity profile. Right Atrium Upper normal right atrial size. Left Atrium Mildly increased left atrial size. Mitral Valve Mild mitral annular calcification. Mildly thickened mitral valve. No mitral valve stenosis. No significant mitral valve regurgitation. Aortic Valve Mildly thickened trileaflet aortic valve. No aortic valve stenosis. No aortic valve regurgitation. Tricuspid Valve Structurally normal tricuspid valve. Trace to mild tricuspid valve regurgitation. Pulmonic Valve Structurally normal pulmonic valve. No pulmonary valve stenosis. Trace pulmonary valve regurgitation. Pericardium No pericardial effusion. Prominent epicardial fat. Aorta Normal-sized aortic root. Inferior vena cava not well visualized. CONCLUSIONS 1. This is a technically difficult study. 2. Small left ventricular cavity size. Severe concentric left ventricular hypertrophy. Normal left ventricular systolic function. Left ventricular ejection fraction is estimated at 60 %. No regional wall motion normality. 3. Trace to mild tricuspid valve regurgitation. 4. When compared to previous echocardiogram dated 06/13/2020, there may not have been any significant change. Ailin Bai MD (Electronically Signed) Final Date: 18 June 2021 18:13 S
[2021-06-19] VITALS (11 sets, daily range): BP systolic 96–154; BP diastolic 51–97; PULSE 75–97; RESP 16–18; TEMP 36.2–36.4; O2SAT 91–95
[2021-06-19] MEDS: dilTIAZem 30 mg Tablet PO ×4 (02:01→20:21)
[2021-06-19 04:12] LABS: Basophils # 0.1 10^3/uL (0.0-0.1); Basophils % 0.8 %; Eosinophils # 0.5 10^3/uL (0.0-0.8); Eosinophils % 5.9 %; Hemoglobin 16.3 g/dL (11.7-16.6); Lymphocytes # 2.4 10^3/uL (0.8-4.8); Lymphocytes % 28.6 %; Mean Corpuscular HGB Conc 31.3 g/dL (30.0-36.0); Mean Corpuscular Hemoglobin 27.3 pg (28.0-34.0); Mean Platelet Volume 10.2 fL (7.4-10.4); Monocytes # 0.7 10^3/uL (0.2-0.9); Monocytes % 8.5 %; Nucleated Red Blood Cells % 0 %; Platelet Count 267 10^3/cmm (130-400); Red Blood Count 5.98 10^6/uL (4.1-5.3); Red Cell Distribution Width 13.4 % (12.1-15.1); White Blood Count 8.2 10^3/uL (4.0-10.0)
[2021-06-19 04:22] LABS: INR 1.83 (0.8-1.2)
[2021-06-19 04:33] LABS: Alanine Aminotransferase 15 U/L (0-41); Albumin Level 3.5 g/dL (3.5-5.2); Alkaline Phosphatase 87 IU/L (40-130); Aspartate Amino Transferase 17 U/L (0-40); Blood Urea Nitrogen 15 mg/dL (6-20); Calcium 8.2 mg/dL (8.5-10.5); Carbon Dioxide 23 mmol/L (22-29); Chloride 106 mmol/L (98-107); Globulin 2.9 g/dL (1.3-4.6); Glomerular Filtration Rate 86.4 mL/min (90-130); Glucose 106 mg/dL (65-115); Magnesium 2.1 mg/dL (1.7-2.3); Osmolality Calculated 285 mOsm/kg (285-295); Sodium 137 mmol/L (136-145); Total Bilirubin 0.5 mg/dL (0.15-1.2); Total Protein 6.4 g/dL (6.6-8.7)
[2021-06-19] MEDS: losartan 50 mg Tablet PO (08:28)
[2021-06-19] MEDS: magnesium oxide 400 mg tablet PO (08:33)
[2021-06-19] MEDS: FUROsemide 40 mg Tablet PO (08:33)
[2021-06-19] MEDS: sotalol 80 mg Tablet PO ×2 (08:33→20:20)
[2021-06-19] MEDS: atorvastatin 40 mg Tablet 20 MG PO (08:34)
--- NOTE | 2021-06-19 11:40 | ECG_ITS ---
[facility] Test Date: 2021-06-19 Pat Name: Dariel Peck Department: Room: 112 Gender: Male Last Marker: : 1960 Requested By: Dov Cornelius Order Number: [id number] Brianna MD: Hamzah Luis M.D. Measurements Intervals [place] Rate: 92 P: [place]: QRS: 15 QRSD: 110 T: 75 QT: 384 QTc: 476 Interpretive Statements ATRIAL FIBRILLATION INDETERMINATE AXIS INCOMPLETE RIGHT BUNDLE BRANCH BLOCK [90+ ms QRS DURATION, TERMINAL R IN V1/V2, 40+ ms S IN I/aVL/V4/V5/V6] ABNORMAL RHYTHM ECG Compared to ECG 06/19/2021 05:36:59 No significant changes Electronically Signed On 06-21-2021 12:26:52 CDT by Hamzah Luis M.D. [id number]
--- NOTE | 2021-06-19 12:51 | P.PN_ITS ---
Subjective Subjective: Interval history: remains in atrial fibrillation, complains of dizziness with ambulation. Medications: Reviewed: Yes Vitals/I&O/Wt Last Vital Signs Temp 97.5 F L 06/19/21 03:54 Pulse 97 06/19/21 08:00 Resp 16 06/19/21 08:00 BP 154/90 06/19/21 08:28 Pulse Ox 95 06/19/21 08:00 06/18/21 06/19/21 06/19/21 22:59 06:59 14:59 Intake Total 240 / 600 100 / 700 300 / 300 Output Total 201 / 426 650 / 1076 350 / 350 Balance 39 / 174 -550 / -376 -50 / -50 Weight last 48 hrs Weight 330 lb Physical Exam Narrative: EXAM NARRATIVE: GENERAL: obese man sitting in bed in no acute distress HEENT: Pupils equal round reactive to light. No pallor or icterus. NECK: No JVD. No carotid bruit. CARDIOVASCULAR SYSTEM: S1-S2 irregular. No murmur rubs or gallops. RESPIRATORY SYSTEM: Chest clear to auscultation. No wheezes rhonchi or rubs heard. No use of accessory muscles. ABDOMEN: Soft, obese, nontender and nondistended. Normal bowel sounds present. EXTREMITIES: No cyanosis or clubbing. Trace edema. No signs of chronic venous insufficiency. DIRECTOR PHARMACOVIGILANCE: Patient is alert oriented ?3. No focal neurological deficits. SKIN: Normal turgor and temperature. PSYCH: Normal insight and judgment. Data : 06/19/21 03:50 06/19/21 03:50 A&P Assessment and plan (1) Atrial fibrillation with RVR: Paroxysmal A. fib on rate control strategy. (HR when in sinus with only low dose sotalol 50-60's) -continue on sotalol 80 mg BID with EKG post for monitoring. -INR subtherapeutic. receiving additional warfarin. -maintain electrolytes with potassium>4 and Mg >2. -currently on cardizem 30 PO Q 6 hr -May need RADHA/CV. Patient unwilling to do that. Plan to monitor another day. -He likely will choose to do the procedure outpatient after talking to his primary vacuum metalizing supervisor (Dr. Heart). Status: Acute (2) Heart failure: HFpEF, appears fairly compensated -continue home lasix, potassium 20 meq x 1 today with lasix. -severe LVH on echo. -May benefit from cardiac MRI as outpatient. Status: Acute Qualifiers: Heart failure type: diastolic Heart failure chronicity: chronic Qualified Code(s): I50.32 - Chronic diastolic (congestive) heart failure (3) HTN (hypertension): Status: Acute Qualifiers: Hypertension type: essential hypertension Qualified Code(s): I10 - E ssential (primary) hypertension (4) Sleep apnea: Non complaint to CPAP. Status: Acute Qualifiers: Sleep apnea type: obstructive Qualified Code(s): G47.33 - Obstructive sleep apnea (adult) (pediatric) Additional A&P Information Subtherapeutic INR GERD Thank you for allowing me to participate in patient's care. Please feel free to call with questions or concerns. Attestations Medical Necessity Statement*: needs hospital stay for symptomatic A. fib with RVR Time Spent in Patient Care: 16 - 35 minutes (>than 50% of time spent in counselling and/or direct pt care on unit) . 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
--- NOTE | 2021-06-19 14:14 | P.PN_ITS ---
Subjective Subjective: Interval history: Patient was seen and examined this morning, continues to be in Afib but his h/r is better controlled at rest,H/R with walking is in 110s and has dizziness. Medications: Reviewed: Yes Vitals/I&O/Wt Last Vital Signs Temp 97.5 F L 06/19/21 03:54 Pulse 92 06/19/21 12:00 Resp 17 06/19/21 12:00 BP 130/97 06/19/21 12:00 Pulse Ox 91 06/19/21 12:00 06/18/21 06/19/21 06/19/21 22:59 06:59 14:59 Intake Total 240 / 600 100 / 700 545 / 545 Output Total 201 / 426 650 / 1076 950 / 950 Balance 39 / 174 -550 / -376 -405 / -405 Weight last 48 hrs Weight 149.685 kg Physical Exam Const: COMMON NORMALS: patient oriented x3 HENMT: COMMON NORMALS: normocephalic and atraumatic HEAD & SCALP: normocephalic and atraumatic Eye: GENERAL EYE: appearance normal, both eyes and all related structures Chest: COMMONS NORMALS: normal inspection of the chest and normal palpation of entire chest wall CHEST: Yes Symmetrical chest wall rise Resp: COMMON NORMALS: normal respiratory effort, No retractions, No use of accessory muscles and clear to auscultation bilaterally EFFORT & INSPECTION: Yes symmetric chest movement AUSCULTATION: clear to auscultation bilaterally Cardio: OTHER: Irregularly irregular rhythm, S1-S2 variable intensity, no murmur, rub or gallop appreciated GI: COMMON NORMALS: Normal to inspection, nondistended, normoactive bowel sounds present, Soft to palpation, non-tender, No hepatosplenomegaly present and no masses AUSCULTATION: Yes normoactive bowel sounds PALPATION: Yes Soft to palpation and Yes No hepatosplenomegaly present RECTAL EXAM: Yes deferred Extremity: COMMON NORMALS: no clubbing, cyanosis or edema and no pedal edema Neuro: COMMON NORMALS: patient oriented x3 Data : 06/20/21 03:10 06/20/21 03:10 A&P Assessment and plan (1) Atrial fibrillation with RVR: Patient presented with A. fib with RVR: He was started on Cardizem drip in the ER: TSH:2.78 2D echo: Small left ventricular cavity size. Severe concentric left ventricular hypertrophy. Normal left ventricular systolic function. Left ventricular ejection fraction is estimated at 60 %. No regional wall motion normality. Trace to mild tricuspid valve regurgitation. Received sotalol 80 one-time dose; Continue sotalol 80 mg p.o. twice daily Cardizem 60 mg p.o. every 6h. Possible RADHA Cardioversion Telemetry monitoring Status: Acute (2) Heart failure with preserved ejection fraction: Currently compensated. Continue lasix 40 mg po daily I/O Charting Daily weight k>4, mg>2 Status: Acute (3) HTN (hypertension): Status: Acute Qualifiers: Hypertension type: essential hypertension Qualified Code(s): I10 - Essential (primary) hypertension (4) Carotid artery disease: Status: Acute Qualifiers: Laterality: unspecified laterality Attestations Medical Necessity Statement*: Patient needs to be in hospital for the m anagment of symptomatic a.fib and the need for possible RADHA Cardioversion. 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
[2021-06-19] MEDS: potassium chloride ER 20 mEq Tablet PO (17:49)
[2021-06-19] MEDS: warfarin 5 mg Tablet 7.5 MG PO (17:51)
--- NOTE | 2021-06-19 23:32 | ECG_ITS ---
[facility] Test Date: 2021-06-19 Pat Name: Dariel Peck Department: Room: 112 Gender: Male Installation Coordinator: : 1960 Requested By: Dov Cornelius Order Number: [id number] Brianna MD: Hamzah Luis M.D. Measurements Intervals [place] Rate: 84 P: [place]: QRS: 128 QRSD: 108 T: 66 QT: 409 QTc: 486 Interpretive Statements ATRIAL FIBRILLATION INCOMPLETE RIGHT BUNDLE BRANCH BLOCK [90+ ms QRS DURATION, TERMINAL R IN V1/V2, 40+ ms S IN I/aVL/V4/V5/V6] POSSIBLE RIGHT VENTRICULAR HYPERTROPHY [SOME/ALL OF: PROMINENT R IN V1, LATE TRANSITION, RAD, DAVONTE, SSS] Compared to ECG 06/19/2021 12:21:05 Indeterminate axis no longer present Electronically Signed On 06-21-2021 12:25:02 CDT by Hamzah Luis M.D. [id number]
[2021-06-20] VITALS (11 sets, daily range): BP systolic 106–130; BP diastolic 64–90; PULSE 7–101; RESP 14–18; TEMP 36.4–36.7; O2SAT 93–97
[2021-06-20] MEDS: dilTIAZem 30 mg Tablet PO ×2 (01:50→06:54)
[2021-06-20 03:20] LABS: Basophils # 0.1 10^3/uL (0.0-0.1); Basophils % 0.7 %; Eosinophils # 0.4 10^3/uL (0.0-0.8); Hematocrit 52.5 % (42.0-52.0); Hemoglobin 16.8 g/dL (11.7-16.6); Lymphocytes # 2.4 10^3/uL (0.8-4.8); Lymphocytes % 27.5 %; Mean Corpuscular Hemoglobin 27.5 pg (28.0-34.0); Mean Corpuscular Volume 86.1 fL (80-94); Mean Platelet Volume 10.1 fL (7.4-10.4); Monocytes # 0.7 10^3/uL (0.2-0.9); Monocytes % 7.6 %; Neutrophils # 5.14 10^3/uL (1.8-7.7); Nucleated Red Blood Cells % 0 %; Platelet Count 274 10^3/cmm (130-400); Red Cell Distribution Width 13.2 % (12.1-15.1); White Blood Count 8.7 10^3/uL (4.0-10.0)
[2021-06-20 03:36] LABS: INR 2.16 (0.8-1.2)
[2021-06-20 03:45] LABS: Alanine Aminotransferase 20 U/L (0-41); Albumin Level 3.6 g/dL (3.5-5.2); Alkaline Phosphatase 102 IU/L (40-130); Aspartate Amino Transferase 17 U/L (0-40); Blood Urea Nitrogen 14 mg/dL (6-20); Calcium 8.6 mg/dL (8.5-10.5); Carbon Dioxide 24 mmol/L (22-29); Chloride 104 mmol/L (98-107); Globulin 3.1 g/dL (1.3-4.6); Glomerular Filtration Rate 76.5 mL/min (90-130); Glucose 102 mg/dL (65-115); Osmolality Calculated 287 mOsm/kg (285-295); Sodium 138 mmol/L (136-145); Total Bilirubin 0.5 mg/dL (0.15-1.2); Total Protein 6.7 g/dL (6.6-8.7)
[2021-06-20] MEDS: sotalol 80 mg Tablet PO ×2 (06:54→18:31)
--- NOTE | 2021-06-20 07:38 | ECG_ITS ---
[facility] Test Date: 2021-06-20 Pat Name: Dariel Peck Department: Room: 112 Gender: Male Computer Hardware Designer: : 1960 Requested By: Dov Cornelius Order Number: [id number] Reed MD: Hamzah Luis M.D. Measurements Intervals [place] Rate: 80 P: [place]: QRS: 90 QRSD: 114 T: 76 QT: 385 QTc: 446 Interpretive Statements ATRIAL FIBRILLATION INCOMPLETE RIGHT BUNDLE BRANCH BLOCK [90+ ms QRS DURATION, TERMINAL R IN V1/V2, 40+ ms S IN I/aVL/V4/V5/V6] ABNORMAL RHYTHM ECG Compared to ECG 06/19/2021 23:58:54 No significant changes Electronically Signed On 06-21-2021 12:24:20 CDT by Hamzah Luis M.D. [id number]
--- NOTE | 2021-06-20 09:38 | PM.PN ---
Subjective Subjective: Interval history: Patient is feeling better. His heart rate is controlled and is less than 100 at rest. Still in A. fib. Blood pressure is stable. Vitals/I&O/Wt Last Vital Signs Temp 98.1 F 06/20/21 07:54 Pulse 98 06/20/21 07:54 Resp 17 06/20/21 07:54 BP 120/82 06/20/21 07:54 Pulse Ox 95 06/20/21 07:54 06/19/21 06/20/21 06/20/21 22:59 06:59 14:59 Intake Total 150 / 695 100 / 795 240 / 240 Output Total 1400 / 2350 600 / 2950 Balance -1250 / -1655 -500 / -2155 240 / 240 Physical Exam Narrative: EXAM NARRATIVE: GENERAL: obese man sitting in bed in no acute distress HEENT: Pupils equal round reactive to light. No pallor or icterus. NECK: No JVD. No carotid bruit. CARDIOVASCULAR SYSTEM: S1-S2 irregular. No murmur rubs or gallops. RESPIRATORY SYSTEM: Chest clear to auscultation. No wheezes rhonchi or rubs heard. No use of accessory muscles. ABDOMEN: Soft, obese, nontender and nondistended. Normal bowel sounds present. EXTREMITIES: No cyanosis or clubbing. Trace edema. No signs of chronic venous insufficiency. MICROSTRATEGY ARCHITECT DEVELOPER: Patient is alert oriented ?3. No focal neurological deficits. SKIN: Normal turgor and temperature. PSYCH: Normal insight and judgment. Data : 06/20/21 03:10 06/20/21 03:10 A&P Assessment and plan (1) Atrial fibrillation with RVR: Heart rates are better controlled now. Continue sotalol 80 mg twice daily. Uptitrate Cardizem to 60 mg every 6 hours. Maintain electrolytes in normal range. I discussed with patient that if on ambulation his heart rate is staying normal, he can be discharged with rate controlling strategy. However if heart rates continue to fluctuate when he ambulates today, we will plan for RADHA cardioversion. He is in agreement with the plan. INR is in goal range today. Status: Acute (2) Heart failure: Heart failure is compensated. Continue current dose of Lasix. Status: Acute Qualifiers: Heart failure type: diastolic Heart failure chronicity: chronic Qualified Code(s): I50.32 - Chronic diastolic (congestive) heart failure (3) HTN (hypertension): Status: Acute Qualifiers: Hypertension type: essential hypertension Qualified Code(s): I10 - Essential (primary) hypertension (4) Sleep apnea: Non complaint to CPAP. Status: Acute Qualifiers: Sleep apnea type: obstructive Qualified Code(s): G47.33 - Obstructive sleep apnea (adult) (pediatric) Additional A&P Information Thank you for involving us with care of this patient. We will continue to follow. Please call with questions. Attestations Medical Necessity Statement*: Care expected to cross 2 mdkatie Coding Level of Care Code Acute Candlemaking Laborer for Ender Fwd Diagnoses Atrial fibrillation with RVR I48.91 Heart failure I50.32 Heart failure type: diastolic Heart failure chronicity: chronic HTN (hypertension) I10 Hypertension type: essential hypertension Sleep apnea G47.33 Sleep apnea type: obstructive
[2021-06-20] MEDS: magnesium oxide 400 mg tablet PO (09:44)
[2021-06-20] MEDS: atorvastatin 40 mg Tablet 20 MG PO (09:44)
[2021-06-20] MEDS: losartan 50 mg Tablet PO (09:45)
[2021-06-20] MEDS: FUROsemide 40 mg Tablet PO (09:45)
[2021-06-20] MEDS: dilTIAZem 30 mg Tablet 60 MG PO ×2 (14:33→20:01)
[2021-06-20] MEDS: warfarin 5 mg Tablet PO (14:49)
--- NOTE | 2021-06-20 18:22 | PC.NURSE ---
Shift Note Frequent safety and comfort rounds continue. Orders and/or nursing care completed as indicated. Patient monitored for response to intervention and treatment(s). Education provided includes[coreg and cardizem]. Patient and/or client support representative [verb understanding of instructions]. Will continue to monitor.
--- NOTE | 2021-06-20 21:30 | ECG_ITS ---
[facility] Test Date: 2021-06-20 Pat Name: Dariel Peck Department: Room: 112 Gender: Male Forming Operator: : [id number] Requested By: Dov Cornelius Order Number: [id number] Brianna MD: Hamzah Luis M.D. Measurements Intervals [place] Rate: 73 P: WI: QRS: 5 QRSD: 107 T: 91 QT: 420 QTc: 463 Interpretive Statements ATRIAL FIBRILLATION INCOMPLETE RIGHT BUNDLE BRANCH BLOCK [90+ ms QRS DURATION, TERMINAL R IN V1/V2, 40+ ms S IN I/aVL/V4/V5/V6] ABNORMAL QRS-T ANGLE [QRS-T AXIS DIFFERENCE > 60] Compared to ECG 06/20/2021 10:09:25 No significant changes Electronically Signed On 06-21-2021 12:23:03 CDT by Hamzah Luis M.D. [id number]
[2021-06-21] VITALS (9 sets, daily range): BP systolic 103–144; BP diastolic 7–94; PULSE 65–87; RESP 13–19; TEMP 36.6–36.7; O2SAT 91–96
[2021-06-21] MEDS: dilTIAZem 30 mg Tablet 60 MG PO ×4 (06:00→18:25)
[2021-06-21] MEDS: sotalol 80 mg Tablet PO ×2 (06:00→18:16)
--- NOTE | 2021-06-21 07:00 | PC.NURSE ---
Shift Note Frequent safety and comfort rounds continue. Orders and/or nursing care completed as indicated. Patient monitored for response to intervention and treatment(s). Education provided includes Cardizem and Sotalol. Patient and/or construction representative verbalized understanding. Will continue to monitor.
[2021-06-21] MEDS: atorvastatin 40 mg Tablet 20 MG PO (08:41)
[2021-06-21] MEDS: FUROsemide 40 mg Tablet PO (08:41)
[2021-06-21] MEDS: magnesium oxide 400 mg tablet PO (08:41)
[2021-06-21] MEDS: losartan 50 mg Tablet PO (08:41)
--- NOTE | 2021-06-21 09:00 | ECG_ITS ---
[facility] Test Date: 2021-06-21 Pat Name: Dariel Peck Department: Room: 112 Gender: Male Board Certified Music Therapist: : [id number] Requested By: Ailin Bai Order Number: [id number] Brianna MD: Hamzah Luis M.D. Measurements Intervals [place] Rate: 73 P: [place]: QRS: 91 QRSD: 104 T: 83 QT: 398 QTc: 440 Interpretive Statements ATRIAL FIBRILLATION BORDERLINE RIGHT AXIS DEVIATION [QRS AXIS > 90] INCOMPLETE RIGHT BUNDLE BRANCH BLOCK [90+ ms QRS DURATION, TERMINAL R IN V1/V2, 40+ ms S IN I/aVL/V4/V5/V6] POSSIBLE ANTERIOR MYOCARDIAL INFARCTION [30 ms Q WAVE IN V3/V4, OR R < 0.2 mV IN V4], OF INDETERMINATE AGE Compared to ECG 06/20/2021 21:25:27 Myocardial infarct finding now present Electronically Signed On 06-21-2021 12:20:47 CDT by Hamzah Luis M.D. [id number]
[2021-06-21] MEDS: acetaminophen 325 mg Tablet 650 MG PO (10:33)
--- NOTE | 2021-06-21 11:17 | PM.PN ---
Subjective Subjective: Interval history: Patient is overall doing well. He denies any chest pain or shortness of breath. On ambulation his heart rate goes into 1 10-1 20 range. At rest it is controlled. Vitals/I&O/Wt Last Vital Signs Temp 97.9 F 06/21/21 08:57 Pulse 65 06/21/21 08:57 Resp 13 06/21/21 08:57 BP 127/94 06/21/21 08:57 Pulse Ox 96 06/21/21 04:00 06/20/21 06/21/21 06/21/21 22:59 06:59 14:59 Intake Total 240 / 720 400 / 1120 236 / 236 Balance 240 / 520 400 / 920 236 / 236 Physical Exam Narrative: EXAM NARRATIVE: GENERAL: obese man sitting in bed in no acute distress HEENT: Pupils equal round reactive to light. No pallor or icterus. NECK: No JVD. No carotid bruit. CARDIOVASCULAR SYSTEM: S1-S2 irregular. No murmur rubs or gallops. RESPIRATORY SYSTEM: Chest clear to auscultation. No wheezes rhonchi or rubs heard. No use of accessory muscles. ABDOMEN: Soft, obese, nontender and nondistended. Normal bowel sounds present. EXTREMITIES: No cyanosis or clubbing. Trace edema. No signs of chronic venous insufficiency. LAY OUT HELPER: Patient is alert oriented ?3. No focal neurological deficits. SKIN: Normal turgor and temperature. PSYCH: Normal insight and judgment. Data : 06/20/21 03:10 06/20/21 03:10 A&P Assessment and plan (1) Atrial fibrillation with RVR: Heart rates are better controlled. Continue sotalol 80 mg twice daily. Cardizem was uptitrated to 60 mg every 6 hours. Maintain electrolytes in normal range. On ambulation his heart rate becomes uncontrolled. He also becomes asymptomatic. We will plan for RADHA cardioversion with Dr. Heart tomorrow INR was in goal range yesterday. We will recheck again today. Status: Acute (2) Heart failure: Heart failure is compensated. Continue current dose of Lasix. Status: Acute Qualifiers: Heart failure type: diastolic Heart failure chronicity: chronic Qualified Code(s): I50.32 - Chronic diastolic (congestive) heart failure (3) HTN (hypertension): Status: Acute Qualifiers: Hypertension type: essential hypertension Qualified Code(s): I10 - Essential (primary) hypertension (4) Sleep apnea: Non complaint to CPAP. Status: Acute Qualifiers: Sleep apnea type: obstructive Qualified Code(s): G47.33 - Obstructive sleep apnea (adult) (pediatric) Additional A&P Information Thank you for involving us with care of this patient. We will continue to follow. Please call with questions. Attestations Medical Necessity Statement*: Care expected to cross 2 midnights. Coding Level of Care Code Acute Shot Hole Driller for Ender Fwd Diagnoses Atrial fibrillation with RVR I48.91 Heart failure I50.32 Heart failure type: diastolic Heart failure chronicity: chronic HTN (hypertension) I10 Hypertension type: essential hypertension Sleep apnea G47.33 Sleep apnea type: obstructive
[2021-06-21] MEDS: warfarin 5 mg Tablet PO (13:43)
--- NOTE | 2021-06-21 19:17 | PC.NURSE ---
Shift Note Frequent safety and comfort rounds continue. Orders and/or nursing care completed as indicated. Patient monitored for response to intervention and treatment(s). Education provided includes upcoming procedures, signs and symptoms, chest pain. Patient and/or medical claims representative receptive to teaching. Will continue to monitor.
[2021-06-22] VITALS (9 sets, daily range): BP systolic 120–127; BP diastolic 70–93; PULSE 60–80; RESP 17–24; TEMP 36.6–36.7; O2SAT 93–97
[2021-06-22] MEDS: dilTIAZem 30 mg Tablet 60 MG PO ×3 (01:46→13:56)
[2021-06-22] MEDS: sotalol 80 mg Tablet PO ×2 (06:04→19:19)
[2021-06-22 06:26] LABS: Basophils # 0.1 10^3/uL (0.0-0.1); Basophils % 0.9 %; Eosinophils # 0.5 10^3/uL (0.0-0.8); Eosinophils % 5.6 %; Hematocrit 53.4 % (42.0-52.0); Hemoglobin 17.2 g/dL (11.7-16.6); Lymphocytes # 2.4 10^3/uL (0.8-4.8); Lymphocytes % 26.1 %; Mean Corpuscular HGB Conc 32.2 g/dL (30.0-36.0); Mean Corpuscular Hemoglobin 27.5 pg (28.0-34.0); Mean Corpuscular Volume 85.3 fL (80-94); Mean Platelet Volume 10.1 fL (7.4-10.4); Monocytes # 0.7 10^3/uL (0.2-0.9); Monocytes % 7.7 %; Neutrophils # 5.57 10^3/uL (1.8-7.7); Neutrophils % 59.5 %; Nucleated Red Blood Cells % 0 %; Platelet Count 267 10^3/cmm (130-400); Red Blood Count 6.26 10^6/uL (4.1-5.3); Red Cell Distribution Width 13.2 % (12.1-15.1); White Blood Count 9.4 10^3/uL (4.0-10.0)
--- NOTE | 2021-06-22 06:35 | PC.NURSE ---
Shift Note Frequent safety and comfort rounds continue. Orders and/or nursing care completed as indicated. Patient monitored for response to intervention and treatment(s). Education provided include procedure today. Patient did not sleep well, he had no c/o of pain or other needs at this. Patient became agitated due to patient care, but was easily redirected. Patient and/or sales representative verbalized understanding. Will continue to monitor.
[2021-06-22 06:50] LABS: INR 2.25 (0.8-1.2)
[2021-06-22 06:56] LABS: Alanine Aminotransferase 22 U/L (0-41); Albumin Level 3.9 g/dL (3.5-5.2); Alkaline Phosphatase 103 IU/L (40-130); Anion Gap 12.9 (5-19); Aspartate Amino Transferase 17 U/L (0-40); Blood Urea Nitrogen 16 mg/dL (6-20); Calcium 8.3 mg/dL (8.5-10.5); Carbon Dioxide 25 mmol/L (22-29); Chloride 103 mmol/L (98-107); Globulin 2.8 g/dL (1.3-4.6); Glomerular Filtration Rate 76.5 mL/min (90-130); Glucose 95 mg/dL (65-115); Magnesium 2.2 mg/dL (1.7-2.3); Osmolality Calculated 285 mOsm/kg (285-295); Potassium 3.9 mmol/L (3.5-5.1); Sodium 137 mmol/L (136-145); Total Bilirubin 0.7 mg/dL (0.15-1.2); Total Protein 6.7 g/dL (6.6-8.7)
[2021-06-22] MEDS: magnesium oxide 400 mg tablet PO (08:38)
[2021-06-22] MEDS: losartan 50 mg Tablet PO (08:38)
[2021-06-22] MEDS: FUROsemide 40 mg Tablet PO (08:38)
[2021-06-22] MEDS: atorvastatin 40 mg Tablet 20 MG PO (08:38)
--- NOTE | 2021-06-22 09:55 | PC.CHAP ---
Pastoral Care Encounter/Spiritual Assessment Type of Contact [] Declined boiler room helper visit [] Patient/Family/Request visit [] Outpatient visit [] Follow-up visit [] Physician referral [] Code/Alert [] Routine visit [] Staff referral [] Actively dying [] Patient sleeping [] Family support [] [] Out of room [] Palliative care [] [] Receiving care in room [] Pre-surgical visit [] Trauma [] Long length of stay [] ICU visit [] Other: Relational/Emotional Strength [] Patient feels connected with others/family/visitors/staff [] Distress [] Loneliness/isolation [] Abandonment Spirituality of Patient [] Person of Laura [] Attends Catholic of their Laura [] Believes in Prayer [] Reads Bible or Christianity materials [] There are Spiritual issues to be addressed Log Manager Interventions [x Prayer [] Active listening [] Non-anxious presence [] Spiritual/emotional support [] Crisis/trauma care [] Spiritual counseling [] Bereavement support [] Provided bereavement packet [] Provided Bible/devotional materials [] Provided toy/stuffed animal, coloring book to patient or family member [] Provided Communion [] Anointing/[place] [] Salvation [x] Completed spiritual assessment [] Other: Impact on Illness or Injury [] Angry [] Fearful [] Anxious [] Often cries [] Exhaustion [] Unable to work [] Unable to attend synagogue [] Unable to walk/stand [] Unable to read [] Unable to drive [] Unable to eat/drink [] Unable to sleep [] Unable to be with family [] Patient intubated [] Other: Summary Time spent with patient
--- NOTE | 2021-06-22 12:51 | PM.PN ---
Subjective Subjective: Interval history: Patient was seen and examined this morning. No overnight events. At rest her heart rate would fluctuate between 70 to 80s with normal blood pressure. On ambulation his heart rate respiratory in between 1 20-1 30s, highest 141, patient complaint of lightheadedness on ambulation as well Vitals/I&O/Wt Last Vital Signs Temp 97.9 F 06/22/21 08:34 Pulse 74 06/22/21 08:34 Resp 24 H 06/22/21 04:00 BP 121/77 06/22/21 08:38 Pulse Ox 97 06/22/21 08:34 06/21/21 06/22/21 06/22/21 22:59 06:59 14:59 Intake Total 250 / 986 200 / 1186 118 / 118 Balance 250 / 986 200 / 1186 118 / 118 Physical Exam Narrative: EXAM NARRATIVE: Patient was comfortable in his bed however complained of lightheadedness on ambulation Appears well-hydrated no signs of fluid overload Morbidly obese No active chest pain Variable S1-S2 no murmur appreciated Abdomen soft nontender Lower extremity no edema No neurological deficits Data : 06/22/21 06:14 06/22/21 06:14 A&P Assessment and plan (1) Atrial fibrillation with RVR: Status: Acute (2) HTN (hypertension): Status: Acute Qualifiers: Hypertension type: essential hypertension Qualified Code(s): I10 - Essential (primary) hypertension (3) Sleep apnea: Status: Acute Qualifiers: Sleep apnea type: obstructive Qualified Code(s): G47.33 - Obstructive sleep apnea (adult) (pediatric) Additional A&P Information A. fib with acute RVR Heart rate at rest 70 to 80s with normal hemodynamics Patient complained of lightheadedness on ambulation her heart rate fluctuated between 1 20-1 30s with highest [address] Heart updated, planning for cardioversion Keep him n.p.o. 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 fib with acute RVR planning for cardioversion Time Spent in Patient Care: 16 - 35 minutes Coding Level of Care Code Acute Drawstring Knotter for Chg Fwd Diagnoses Atrial fibrillation with RVR I48.91 HTN (hypertension) I10 Hypertension type: essential hypertension Sleep apnea G47.33 Sleep apnea type: obstructive
--- NOTE | 2021-06-22 13:47 | PC.NURSE ---
Pt converted to Sinus Rhythm At 1321 per telemetry, Noted pt is on SR w/ HR in mid 60s to 70s. Pt is laying in his bed watching tv. Dr. Connolly is notified on the pt conversion. Pt notified on his conversion. Instructed pt to ambulate and be up ad lang. Verbal order from Dr. Connolly to keep pt NPO until seen by his group care worker.
[2021-06-22] MEDS: warfarin 5 mg Tablet 7.5 MG PO (13:56)
--- NOTE | 2021-06-22 18:42 | P.PN_ITS ---
Subjective Subjective: Interval history: Patient converted to sinus rhythm doing fine from a cardiac perspective feeling much better would like to go home. Medications: Reviewed: Yes Vitals/I&O/Wt Last Vital Signs Temp 97.9 F 06/22/21 08:34 Pulse 60 06/22/21 14:00 Resp 24 H 06/22/21 04:00 BP 121/77 06/22/21 08:38 Pulse Ox 97 06/22/21 08:34 06/22/21 06/22/21 06/22/21 06:59 14:59 22:59 Intake Total 200 / 1186 478 / 478 Balance 200 / 1186 478 / 478 Physical Exam Narrative: EXAM NARRATIVE: GENERAL: Patient is alert, awake and oriented x3. NECK: No jugular vein distension. HEENT: No cyanosis. No icterus. No pallor. HEART: Regular S1 and S2. No murmur, rub or gallop. LUNGS: Clear to auscultate bilaterally. ABDOMEN: Soft, nontender and nondistended. Positive bowel sounds. No guarding, rebound or tenderness. CENTRAL NERVOUS SYSTEM: Grossly nonfocal. EXTREMITIES: Lower extremities without edema bilaterally. Data : 06/22/21 06:14 06/22/21 06:14 A&P Assessment and plan (1) Atrial fibrillation with RVR: Converted back to sinus rhythm we will switch patient to 80 mg twice daily sotalol bid 240 mg of Cardizem. Continue anticoagulation. Follow-up with Ms. Bhavya Cazares cardiology nurse practitioner for next 3 to [address] Heart in 6 to 8 weeks. Status: Acute (2) Heart failure: Well compensated. Continue current regimen Status: Acute Qualifiers: Heart failure type: diastolic Heart failure chronicity: chronic Qualified Code(s): I50.32 - Chronic diastolic (congestive) heart failure (3) HTN (hypertension): Well-controlled continue medicine Status: Acute Qualifiers: Hypertension type: essential hypertension Qualified Code(s): I10 - Essential (primary) hypertension (4) Sleep apnea: Patient is noncompliant with CPAP Status: Acute Qualifiers: Sleep apnea type: obstructive Qualified Code(s): G47.33 - Obstructive sleep apnea (adult) (pediatric) Additional A&P Information Thank you for involving us with care of this patient. We will continue to follow. Please call with questions. Attestations Medical Necessity Statement*: Patient can be discharged home from a cardiovascular perspective Coding Level of Care Code Established Pt Acute Interceptor Operator for Chg Fwd Patient Type Established History Detailed Exam Detailed Medical Decision Making Moderate Complexity Diagnoses Atrial fibrillation with RVR I48.91 Heart failure I50.32 Heart failure type: diastolic Heart failure chronicity: chronic HTN (hypertension) I10 Hypertension type: essential hypertension Sleep apnea G47.33 Sleep apnea type: obstructive
--- NOTE | 2021-06-22 18:43 | P.DS_ITS ---
Discharge Providers Date of Admission: 06/17/21 21:14 Date of Discharge: June 22, 2021 Attending Provider at Admission: Dov Cornelius MD Attending Provider at Discharge: Diane Connolly MD Primary Care Provider: Giorgi Cortes MD Diagnoses at Discharge Discharge Diagnosis (1) Atrial fibrillation with RVR: Status: Acute (2) HTN (hypertension): Status: Acute Qualifiers: Hypertension type: essential hypertension Qualified Code(s): I10 - Ess ential (primary) hypertension (3) Sleep apnea: Status: Acute Qualifiers: Sleep apnea type: obstructive Qualified Code(s): G47.33 - Obstructive sleep apnea (adult) (pediatric) Reason for Visit Reason for Visit: chest pain, sob, fast HR Hospital Course Hospital Course aDriel Peck is a 60 year old male with past medical history of hypertension , coronary artery disease status post stent , Covid , obstructive sleep apnea, came in with chief complaint of racing of heart started this morning after the shower, accompanied with chest tightness. On arrival in the ER he was worked up for above-mentioned complaint. Pertinent imaging studies: X-ray chest: Unremarkable, no infiltrates. EKG: A. fib with RVR: with rate in 120s. pertinent Labs: Troponin T: Baseline: 16, 2-hour troponin:18.21, 2-hour delta:2.21 , proBNP:138 PT/INR: 18/1.45 . Pertinent prior studies: CAG : ( : 10/29/20 ) : LM has 0% stenosis. LAD has 0% stenosis. RCA has 0% stenosis. CV echo: 06/13/2020: Normal left ventricular size and systolic function, EF 63 %. No regional wall motion abnormalities. Thickened aortic valve. No signi ficant stenotic or regurgitant lesions. Hospital course Patient was managed for A. fib with acute RVR, his heart rate was better at rest however on ambulation it was fluctuating between 1 20-1 40s, patient was complaining of lightheadedness as well, his AV norman blocking agents were optimized with increased dose of sotalol. Cardiology was planning to cardiovert for his persistent symptoms and tachyarrhythmia on ambulation however he converted to normal sinus rhythm on 06/22 spontaneously with sotalol 80 mg twice a day and Cardizem 60 mg every 6 hours regimen, Dr. Duke evaluated him and agreed with his discharge plan. His INR was therapeutic on day of discharge 2.2, patient does not have insurance and can't afford [employer] co-pay. Physical Exam Narrative: EXAM NARRATIVE: Patient was comfortable in his bed however complained of lightheadedness on ambulation Appears well-hydrated no signs of fluid overload Morbidly obese No active chest pain Variable S1-S2 no murmur appreciated Abdomen soft nontender Lower extremity no edema No neurological deficits Discharge Data Data Completed and Pending: Completed Studies During Hospitalization Category Date Time Status XR chest 1V misti ble [id number] Stat Exams 06/17/21 16:22 Completed CV. echo complete * [id number] Routine Ultrasound 06/18/21 20:41 Completed Pending at discharge Category Date Time Status Basic Metabolic P sangeetha AM LABS Lab 06/23/21 04:00 Ordered Magnesium AM LABS Lab 06/23/21 04:00 Ordered Magnesium AM LABS Lab 06/24/21 04:00 Ordered Prothrombin Time INR AM LABS Lab 06/23/21 04:00 Ordered Labs from last 24 hours 06/22/21 06/22/21 06/22/21 06:14 06:14 06:14 WBC 9.4 RBC 6.26 H Hgb 17.2 H Hct 53.4 H MCV 85.3 MCH 27.5 L MCHC 32.2 RDW 13.2 Plt Count 267 MPV 10.1 Neut % (Auto) 59.5 Lymph % (Auto) 26.1 [place] % (Auto) 7.7 Eos % (Auto) 5.6 Baso % (Auto) 0.9 Neut # (Auto) 5.57 Lymph # (Auto) 2.4 [place] # (Auto) 0.7 Eos # (Auto) 0.5 Baso # (Auto) 0.1 Nucleated RBC % (a uto) 0 Nucleated RBCs # 0.0 PT 25.30 H INR 2.25 H Sodium 137 Potassium 3.9 Chloride 103 Carbon Dioxide 25 Anion Gap 12.9 BUN 16 Creatinine 1.0 GFR Calculation 76.5 L Glucose 95 Calculated Osmolal ity 285 Calcium 8.3 L Magnesium 2.2 Total Bilirubin 0.7 AST 17 ALT 22 Alkaline Phosphata se 103 Total Protein 6.7 Albumin 3.9 Globulin 2.8 Vitals: Last Vital Signs Temp 97.9 F 06/22/21 08:34 Pulse 60 06/22/21 14:00 Resp 24 H 06/22/21 04:00 BP 121/77 06/22/21 08:38 Pulse Ox 97 06/22/21 08:34 Discharge Plan Discharge Patient Disposition: Home Condition: Stable Prescriptions: New sotalol 80 mg Tablet 80 mg PO 0700,1900 30 Days Qty: 60 RF: 0 warfarin 5 mg Tablet 5 mg PO SuWeSa@1400 60 Days Qty: 26 RF: 0 Cardizem LA 240 mg tablet extended release 24 hr 240 mg PO DAILY 30 Days Qty: 30 RF: 0 Continued nitroglycerin [Nitrostat] 0.4 mg tablet, sublingual 0.4 mg SUBLINGUAL Q5M PRN (Reason: Chest Pain) Qty: 60 RF: 3 lovastatin 40 mg tablet 40 mg PO DAILY RF: 0 furosemide 40 mg tablet 40 mg PO DAILY PRN (Reason: SWELLING) Qty: 90 RF: 3 amlodipine 10 mg tablet 10 mg PO DAILY Qty: 90 RF: 3 warfarin 5 mg Tablet See Rx Instructions .ROUTE .COMPLEX RF: 0 magnesium oxide 400 mg magnesium Tablet 400 mg PO DAILY RF: 0 valsartan 80 mg tablet 80 mg PO DAILY RF: 0 potassium chloride 10 mEq tablet extended release 10 meq PO .THREE TIMES A WEEK RF: 0 Protonix 40 mg tablet,delayed release (DR/EC) 40 mg PO DAILY PRN (Reason: Acid Reflux) RF: 0 Discontinued losartan 100 mg Tablet 100 mg PO DAILY RF: 0 sotalol [Sotalol AF] 80 mg tablet 40 mg PO BID RF: 0 Discharge Orders: Discharge Order (Routine); Ordered 06/22/21 Ordered By: Diane Connolly Referrals: Diane Heart MD [Physician] - ([facility] will be calling to schedule a cardiology followup with Dr. Heart to be seen in 6 weeks. If you don't hear from them by Tomorrow late morning, please give them a call. Thank you) Bhavya Cazares FNP [Nurse Practitioner] - 1-3 days ([facility] will be calling to schedule an afternoon appointment with NICOLA Gay to be seen in 1 to 3 days. If you don't hear from them by Tomorrow late morning, please give them a call. Thank you) Discharge Diet: Cardiac Discharge Activity: Increase activity as tolerated Patient Instructions: Diltiazem (By mouth), Warfarin (By mouth), Sotalol (By mouth), Opioid Safety Activity Restrictions/Additional Instructions: 80 mg twice a day, take Cardizem 240 mg daily Continue your Coumadin if you're taking Lasix keep potassium tablets 3 times a week regimen Discharge Attestations Time Spent in Discharge Care*: less than 30 min Quality Metrics Clinical Quality Measures During this hospital stay, did patient experience: None Coding Level of Care Code Acute [facility] DC note Diagnoses Atrial fibrillation with RVR I48.91 HTN (hypertension) I10 Hypertension type: essential hypertension Sleep apnea G47.33 Sleep apnea type: obstructive
--- NOTE | 2021-06-24 08:06 | PC.SOCIAL ---
hospital follow up call made. patient has made his appointment with Dr. Heart and his PCP. New medications from the pharmacy picked up. Patient reports he is feeling better. Denies any questions or concerns.
== END 2021-06-22 19:00 | disposition home or self-care (01) | DRG 309 ==
LOC: ER 15:54 → CSU 21:08
PROVIDERS: Internal Medicine; Admitting Provider Internal Medicine; Emergency Provider Family Medicine; PCP Family Medicine; Visit Provider Internal Medicine
DX: I48.0 Paroxysmal atrial fibrillation (principal); Z68.41 Body mass index [BMI] 40.0-44.9, adult; I50.32 Chronic diastolic (congestive) heart failure; I11.0 Hypertensive heart disease with heart failure; I25.10 Atherosclerotic heart disease of native coronary artery without angina pectoris; I25.5 Ischemic cardiomyopathy; G47.33 Obstructive sleep apnea (adult) (pediatric); E78.5 Hyperlipidemia, unspecified; H91.90 Unspecified hearing loss, unspecified ear; E66.01 Morbid (severe) obesity due to excess calories; K21.9 Gastro-esophageal reflux disease without esophagitis; Z95.5 Presence of coronary angioplasty implant and graft; Z86.16 Personal history of COVID-19; Z79.01 Long term (current) use of anticoagulants; Z87.891 Personal history of nicotine dependence; Z82.49 Family history of ischemic heart disease and other diseases of the circulatory system
CPT/HCPCS: 36415; 71045; 80048; 80053; 83735; 83880; 84443; 84484; 85025; 85610; 85730; 93005; 93306; 96365; 96375; 99285; J3490

== ENCOUNTER → 2022-03-30 12:18 | Outpatient (BNVA) | payer SELFPAY | PROVIDERS: PCP Family Medicine; Visit Provider Family Medicine | DX: R53.81 Other malaise (principal); R53.83 Other fatigue; Z51.81 Encounter for therapeutic drug level monitoring; E53.9 Vitamin B deficiency, unspecified; R73.01 Impaired fasting glucose | CPT/HCPCS: 80053; 82607; 83036; 84403; 84443; 85025 ==

== ENCOUNTER 2022-09-13 07:40 | Emergency (ER) | payer SELFPAY ==
[2022-09-13 07:47] VITALS: BP 182/96; PULSE 62; RESP 14; TEMP 36.4; O2SAT 97; BMI 42.5
[2022-09-13] MEDS: dexamethasone 10 mg/mL INJ IVP (08:39)
[2022-09-13] MEDS: orphenadrine 30 mg/mL Inj 2 mL 60 MG IVP (08:39)
[2022-09-13 08:45] VITALS: BP 156/126; PULSE 65; RESP 17; O2SAT 96
--- NOTE | 2022-09-13 09:52 | ED_ITS ---
HPI - Back Pain/Injury General: Chief Complaint: Back Pain/Injury Stated Complaint: low back spasms Time Seen by Provider: 09/13/22 08:17 Source: patient Mode of arrival: ambulatory History of Present Illness: 62-year-old male presents emergency room complaining of low back pain. Is been going on for the last 3 weeks progressively worsening. He feels like when he tries to turn or move or even readjust while sitting as severe back pain makes it difficult to do so. 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 He denies any falls or trauma he was seated at a hospital in [place] and evidently had a CT done during that time there is no major finding. This morning he feels like it is quite a bit worse he denies any loss of bowel control or any urine or urinary retention no radiation of pain to the legs but does radiate around his sides has not had any rash. Denies trauma no previous back surgeries MD elicited complaint: back pain Pertinent past history: prior back pain Onset (ago): week(s) (3) Timing: constant Severity: moderate Similar Symptoms Previously: Yes Quality: sharp Location: lumbar spine Radiation: none Exacerbating factors: movement, sitting upright and walking Relieving factors: supine Context: turning/twisting and bending Associated symptoms: Reports difficulty walking; Deny abdominal pain, arthralgias, chills, change in bowel habits, dysuria, fatigue, fecal incontinence, fever(s), hematuria, myalgias, nausea, numbness, syncope, tingling/numbness/burning, urinary frequency, urinary urgency, vomiting or weakness Review of Systems Const: Denies: fever(s), chills or fatigue Card: Denies: syncope GI: Denies: abdominal pain, nausea, vomiting, fecal incontinence or change in bowel habits : Denies: dysuria, urinary urgency or hematuria Neuro: Reports: difficulty walking Endo: Reports: polyuria PFSH ED PFSH: Medical History Atrial fibrillation CAD in [place] artery Carotid artery disease Carotid artery disease Heart failure Heart failure with preserved ejection fraction HTN (hypertension) Hyperlipidemia Ischemic cardiomyopathy SHENA (obstructive sleep apnea) Sensorineural hearing loss Sleep apnea Tachy-favian syndrome Surgical History S/P knee surgery S/P PTCA (percutaneous transluminal coronary angioplasty) Family History Mother Myocardial infarction Social History Smoking and tobacco status: former smoker Quit status (tobacco): has quit using tobacco Year quit tobacco: 1979 - 0.5 PPD x 3 Years Second hand smoke exposure: Yes Alcohol intake: former Lives independently: Yes Household members: significant other Marital status: Life Partner Current occupational status: employed 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 Current occupational exposures/hazards: No History of recent travel: No Current gender identity: Male Physical Exam Const: COMMON NORMALS: no acute distress GENERAL APPEARANCE: cooperative and comfortable ORIENTATION/CONSCIOUSNESS: Yes awake, Yes oriented to person, Yes oriented to place and Yes oriented to time HENMT: COMMON NORMALS: normocephalic, atraumatic and hearing grossly normal bilaterally HEAD & SCALP: normocephalic and atraumatic Resp: COMMON NORMALS: normal respiratory effort, No retractions, No use of accessory muscles and clear to auscultation bilaterally AUSCULTATION: clear to auscultation bilaterally Cardio: COMMON NORMALS: regular rate, regular rhythm and No murmurs present (Cardio) RATE: regular rate RHYTHM: regular rhythm GI: COMMON NORMALS: Soft to palpation and No hepatosplenomegaly present AUSCULTATION: Yes normoactive bowel sounds PALPATION: Yes Soft to palpation, No Tenderness to palpation present (GI), No Guarding due to palpation present (GI) and Yes No hepatosplenomegaly present Extremity: COMMON NORMALS: normal to inspection, capillary refill normal, no clubbing, cyanosis or edema, no calf tenderness and no pedal edema Neuro: SENSORIUM/ORIENTATION: Yes oriented to person, Yes oriented to place and Yes oriented to time Skin: COMMON NORMALS: no rashes or lesions noted GENERAL SKIN EXAM: no rashes or lesions noted Course Vital Signs: Vital signs: Vital Signs Temperature 97.6 F 09/13/22 07:47 Pulse Rate 65 09/13/22 08:45 Respiratory Rate 17 09/13/22 08:45 Blood Pressure 156/126 09/13/22 08:45 Pulse Oximetry 96 09/13/22 08:45 Oxygen Delivery Me thod 09/13/22 08:45 MDM - Back Pain/Injury Medical Decision Making Deep tendon reflexes +1 of 4 at the patellar tendon sensation normal dorsiflexion 5/5 straight leg raising negative. Patient was hesitant to take any medications he did not take Toradol we also given Norflex and dexamethasone will start on prednisone taper diclofenac to use as needed we will start him on Lyrica and change him to tizanidine from Robaxin. Set him up for follow-up with orthopedic spine surgery return if he has worsening problems. Patient declined other pain medications while in the ER. Medical Records I reviewed the patient's medical records. Labs I reviewed the patient's lab results. Discharge Plan Discharge Patient Disposition: Home Clinical Impression: Strain of lumbar region Condition: Stable Prescriptions: New prednisone 20 mg tablet 20 mg PO TID Qty: 15 0RF Rx Instructions: 1 p.o. 3 times daily x3 days, 1 p.o. twice daily x2 days, 1 p.o. daily x2 days diclofenac sodium 75 mg tablet,delayed release (DR/EC) 75 mg PO Q12H PRN (Reason: pain) Qty: 20 0RF Lyrica 75 mg capsule 75 mg PO BID Qty: 60 0RF tizanidine 4 mg tablet 4 mg PO Q6H PRN (Reason: muscle spasticity) Qty: 30 0RF Rx Instructions: do not exceed 3 doses per 24 hrs No Action nitroglycerin [Nitrostat] 0.4 mg tablet, sublingual 0.4 mg SUBLINGUAL Q5M PRN (Reason: Chest Pain) Qty: 60 3RF sotalol 80 mg tablet 40 mg PO BID Qty: 90 3RF amlodipine 10 mg tablet 10 mg PO DAILY Qty: 90 3RF Xarelto 10 mg tablet 10 mg PO DAILY Qty: 90 3RF magnesium oxide 400 mg magnesium tablet 400 mg PO DAILY PRN (Reason: Spasms) valsartan 80 mg tablet 80 mg PO DAILY PRN (Reason: Blood Pressure) lovastatin 40 mg tablet 40 mg PO BEDTIME Discharge Orders: Discharge ED (Routine); Ordered 09/13/22 Ordered By: Lázaro Rhodes Referrals: Giorgi Cortes MD [Primary Care Provider] - Discharge Diet: Usual diet Discharge Activity: Increase activity as tolerated Patient Instructions: Opioid Safety, Pain Management Activity Restrictions/Additional Instructions: Case management make arrangements for you to follow-up with orthopedic spine surgery. Coding Level of Care Code ED Pre K Special Education Teacher for Ender Landeros
[2022-09-13] MEDS: ketorolac 30 mg/mL INJ IVP (10:40)
--- NOTE | 2022-09-13 14:12 | DCPLANNER ---
Addendum entered by Isabel Fields 09/23/22 14:05: Patient had a follow up appointment scheduled for 09.23.22 with Mario at ortho - patient did attend appointment. Original Note: sr. media manager had message to schedule a follow up appointment for patient with ortho. sr. media manager sent patients information to the front office staff at ortho. Patients information will be printed and reviewed. Clinic will call patient with appointment information.
== END 2022-09-13 11:30 | disposition home or self-care (01) ==
PROVIDERS: Emergency Provider Family Medicine; PCP Family Medicine
DX: S39.012A Strain of muscle, fascia and tendon of lower back, initial encounter (principal); Z87.891 Personal history of nicotine dependence; I25.10 Atherosclerotic heart disease of native coronary artery without angina pectoris; I11.0 Hypertensive heart disease with heart failure; I50.9 Heart failure, unspecified; E78.5 Hyperlipidemia, unspecified; X58.XXXA Exposure to other specified factors, initial encounter
CPT/HCPCS: 96374; 96375; 99284; J1100; J1885; J2360

== ENCOUNTER → 2022-09-23 08:20 | Outpatient (BNVA) | payer SELFPAY | PROVIDERS: PCP Family Medicine; Referring Provider Family Medicine; Visit Provider Physician Assistant | DX: M51.37 Other intervertebral disc degeneration, lumbosacral region (principal); M47.816 Spondylosis without myelopathy or radiculopathy, lumbar region; M47.27 Other spondylosis with radiculopathy, lumbosacral region | CPT/HCPCS: 72110 ==

== ENCOUNTER → 2022-11-30 11:01 | Outpatient (BNVA) | payer SELFPAY | PROVIDERS: PCP Family Medicine; Visit Provider Orthopaedic Surgery | DX: M48.12 Ankylosing hyperostosis [Forestier], cervical region (principal) | CPT/HCPCS: 72050 ==

== ENCOUNTER → 2023-01-04 14:21 | Outpatient (BNVA) | payer SELFPAY | PROVIDERS: PCP Family Medicine; Visit Provider Family Medicine | DX: Z51.81 Encounter for therapeutic drug level monitoring (principal); R73.03 Prediabetes | CPT/HCPCS: 80053; 83036; 85025 ==

== ENCOUNTER → 2023-03-03 10:51 | Outpatient (BNVA) | payer SELFPAY | PROVIDERS: PCP Family Medicine; Visit Provider Family Medicine | DX: E03.9 Hypothyroidism, unspecified (principal); R00.2 Palpitations; R07.9 Chest pain, unspecified; Z51.81 Encounter for therapeutic drug level monitoring; I10 Essential (primary) hypertension | CPT/HCPCS: 83735; 84443; 85025; 85379 ==

== ENCOUNTER 2023-03-08 15:04 | Inpatient (IN) | payer SELFPAY ==
[2023-03-08] VITALS (7 sets, daily range): BP systolic 128–156; BP diastolic 65–90; PULSE 47–53; RESP 13–18; TEMP 36.6–36.8; O2SAT 95–98
--- NOTE | 2023-03-08 15:15 | ECG_ITS ---
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 Measurements Intervals [place] Rate: 48 P: 133 [place]: 154 QRS: -76 QRSD: 113 T: 135 QT: 427 QTc: 384 Interpretive Statements SINUS BRADYCARDIA POSSIBLE LEFT ATRIAL ENLARGEMENT [-0.1mV P-WAVE IN V1/V2] INDETERMINATE AXIS INCOMPLETE RIGHT BUNDLE BRANCH BLOCK [90+ ms QRS DURATION, TERMINAL R IN V1/V2, 40+ ms S IN I/aVL/V4/V5/V6] MODERATE ST DEPRESSION [0.05+ mV ST DEPRESSION] ABNORMAL QRS-T ANGLE [QRS-T AXIS DIFFERENCE > 60] Compared to ECG 06/21/2021 10:36:13 Indeterminate axis now present ST (T wave) deviation now present Atrial fibrillation no longer present Myocardial infarct finding no longer present Electronically Signed On 03-08-2023 20:40:04 CDT by Hamzah Luis M.D. [id number]
--- NOTE | 2023-03-08 17:07 | XRR_ITS ---
PROCEDURE INFORMATION: Exam: XR Chest Exam date and time: 03/08/2023 5:12 PM Age: 62 years old Clinical indication: Pain; Chest pressure; Additional info: Cp, spotty vision TECHNIQUE: Imaging protocol: Radiologic exam of the chest. Views: 1 view. COMPARISON: CR XR chest 1V portable [id number] 06/17/2021 4:22 PM FINDINGS: Lungs: Unremarkable. No consolidation. Pleural spaces: Unremarkable. No pleural effusion. No pneumothorax. Heart/Mediastinum: Unremarkable. No cardiomegaly. Bones/joints: Unremarkable. XR/XR chest 1V portable [id number] IMPRESSION: No acute findings.
--- NOTE | 2023-03-08 17:07 | ECG_ITS ---
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 Measurements Intervals [place] Rate: 48 P: 133 [place]: 154 QRS: -76 QRSD: 113 T: 135 QT: 427 QTc: 384 Interpretive Statements SINUS BRADYCARDIA POSSIBLE LEFT ATRIAL ENLARGEMENT [-0.1mV P-WAVE IN V1/V2] INDETERMINATE AXIS INCOMPLETE RIGHT BUNDLE BRANCH BLOCK [90+ ms QRS DURATION, TERMINAL R IN V1/V2, 40+ ms S IN I/aVL/V4/V5/V6] MODERATE ST DEPRESSION [0.05+ mV ST DEPRESSION] ABNORMAL QRS-T ANGLE [QRS-T AXIS DIFFERENCE > 60] Compared to ECG 06/21/2021 10:36:13 Bradycardia, nonsinus now present Indeterminate axis now present ST (T wave) deviation now present Myocardial infarct finding no longer present Electronically Signed On 03-09-2023 11:02:11 CDT by Hamzah Luis M.D. [id number] f
--- NOTE | 2023-03-08 18:04 | ED_ITS ---
HPI - Syncope General: Chief Complaint: Syncope Stated Complaint: low back pain/tight chest/dizzy Time Seen by Provider: 03/08/23 18:01 History of Present Illness: Mr. Peck is a 62-year-old gentleman with history of hypertension and paroxysmal atrial fibrillation presenting to the emergency department for intermittent episodes of presyncope. He reports over the past month he has had frequent episodes of his vision becoming tunnel vision and going black. He has associated left-sided headache and generalized malaise. When this occurs he does not notice any other particular symptoms such as shortness of breath or chest pain. He apparently was seen at [facility] in [place] and was noted to have hypertension which improved with treatment. Density symptoms is severe when pre sent. Currently symptom-free. No other specific changes in health, exacerbating, or alleviating factors identified. Per discussion with Dr. Luis the patient also endorsed dyspnea on exertion as well as pain between the shoulder blades over the past 5 days which has been increasing. Onset (ago): week(s) Prodromal symptoms: lightheaded Associated symptoms: Reports chest pain, short of breath and other Review of Systems General: Reports: 10 or more systems reviewed and unremarkable except in HPI and below Card: Reports: chest pain PFSH ED PFSH: Medical History Atrial fibrillation Bradycardia CAD in [place] artery Carotid artery disease Carotid artery disease Chest pain Chest pain, exertional Dizziness Double vision Exertional dyspnea Heart failure Heart failure with preserved ejection fraction HTN (hypertension) Hyperlipidemia Ischemic cardiomyopathy SHENA (obstructive sleep apnea) Palpitations Pre-syncope Prediabetes Sensorineural hearing loss Sleep apnea Tachy-favian syndrome Surgical History S/P knee surgery S/P PTCA (percutaneous transluminal coronary angioplasty) Family History Mother Myocardial infarction Social History Smoking and tobacco status: never smoked Quit status (tobacco): has quit using tobacco Year quit tobacco: 1980 - 0.5 PPD x 3 Years Second hand smoke exposure: Yes Alcohol intake: former Substance/Drug Use: never Lives independently: Yes Household members: significant other Marital status: Life Partner Current occupational status: employed 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 Current occupational exposures/hazards: No Do you think of yourself as: Straight/Heterosexual Current gender identity: Male Physical Exam Const: COMMON NORMALS: alert GENERAL APPEARANCE: cooperative and well developed HENMT: COMMON NORMALS: normocephalic and atraumatic HEAD & SCALP: normocephalic and atraumatic Eye: COMMON NORMALS: conjunctivae normal CONJUNCTIVA: Yes conjunctivae nor mal SCLERA: sclerae normal Neck/C-Spine: COMMON NORMALS: supple GENERAL: Yes trachea midline Resp: COMMON NORMALS: clear to auscultation bilaterally EFFORT & INSPECTION: Yes able to speak in complete sentences AUSCULTATION: clear to auscultation bilaterally Cardio: COMMON NORMALS: regular rhythm RATE: bradycardic RHYTHM: regular rhythm GI: COMMON NORMALS: Soft to palpation PALPATION: Yes Soft to palpation and No Tenderness to palpation present (GI) PERCUSSION: normal to percussion Extremity: GENERAL: Yes normal exam except as noted and Yes edema Neuro: COMMON NORMALS: moves all extremities SENSORIUM/ORIENTATION: Yes alert and No Orientation impaired Psych: COMMON NORMALS: mental status grossly normal and Normal thought process present THOUGHT PROCESS: Normal thought process present Course Vital Signs: Vital signs: Vital Signs Temperature 97.6 F 03/10/23 07:25 Pulse Rate 59 L 03/10/23 10:28 Respiratory Rate 13 03/10/23 10:28 Blood Pressure 150/86 03/10/23 10:28 Pulse Oximetry 97 03/10/23 10:28 Oxygen Delivery Me thod Room Air 03/10/23 08:20 MDM - Syncope Medical Decision Making 62-year-old gentleman presenting to the emergency department for presyncopal episodes and also endorsed to cardiology at prior visit chest pain and shortness of breath which is progressively been worsening. Exam as above. EKG notable for sinus bradycardia with incomplete right bundle branch block, no STEMI. Labs with no leukocytosis, normal hemoglobin and platelet count. Metabolic p sangeetha with mild hyponatremia. 2-hour delta troponin is in the intermediate range Chest x-ray withNo lobar consolidation or pneumothorax. In discussion with cardiology service patient has concerning symptoms for unstable angina and requires further inpatient management for cardiac intervention. The results of ED evaluation were discussed with the patient including plan for admission due to requirement for level of care not available if discharged to prevent significant worsening/deterioration. Patient agreeable with plan. Discussed with hospitalist service who was agreeable to admit patient. Medical Records I reviewed the patient's medical records. Lab Data I reviewed the patient's lab results. 03/10/23 04:42 03/10/23 04:42 Radiology Impressions Chest X-Ray 03/08/23 17:07 IMPRESSION: No acute findings. Laboratory Results WBC 8.3 10^3/uL (4.0-10.0) 03/08/23 17:58 RBC 5.92 10^6/uL (4.1-5.3) H 03/08/23 17:58 Hgb 16.4 g/dL (11.7-16.6) 03/08/23 17:58 Hct 51.6 % (42.0-52.0) 03/08/23 17:58 MCV 87.2 fl (80-94) 03/08/23 17:58 MCH 27.7 pg (28.0-34.0) L 03/08/23 17:58 MCHC 31.8 g/dL (30.0-36.0) 03/08/23 17:58 RDW 13.2 % (12.1-15.1) 03/08/23 17:58 Plt Count 235 10^3/cmm (130-400) 03/08/23 17:58 MPV 10.3 fL (7.4-10.4) 03/08/23 17:58 Neut % (Auto) 60.1 % 03/08/23 17:58 Lymph % (Auto) 24.6 % 03/08/23 17:58 [place] % (Auto) 7.7 % 03/08/23 17:58 Eos % (Auto) 6.9 % 03/08/23 17:58 Baso % (Auto) 0.6 % 03/08/23 17:58 Neut # (Auto) 4.97 10^3/uL (1.8-7.7) 03/08/23 17:58 Lymph # (Auto) 2.0 10^3/uL (0.8-4.8) 03/08/23 17:58 [place] # (Auto) 0.6 10^3/uL (0.2-0.9) 03/08/23 17:58 Eos # (Auto) 0.6 10^3/uL (0.0-0.8) 03/08/23 17:58 Baso # (Auto) 0.1 10^3/uL (0.0-0.1) 03/08/23 17:58 Nucleated RBC % (auto) 0 % 03/08/23 17:58 Nucleated RBCs # 0.0 /100WBC 03/08/23 17:58 PT 17.50 SECONDS (12.1-14.9) H 03/08/23 17:58 INR 1.39 (0.8-1.2) H 03/08/23 17:58 Sodium 146 mmol/L (136-145) H 03/08/23 17:58 Potassium 4.6 mmol/L (3.5-5.1) 03/08/23 17:58 Chloride 108 mmol/L (98-107) H 03/08/23 17:58 Carbon Dioxide 25 mmol/L (22-29) 03/08/23 17:58 Anion Gap 17.6 (5-19) 03/08/23 17:58 BUN 12 mg/dL (8-23) 03/08/23 17:58 Creatinine 1.0 mg/dL (0.7-1.2) 03/08/23 17:58 GFR Calculation 76.0 mL/min (90-130) L 03/08/23 17:58 Glucose 96 mg/dL (65-115) 03/08/23 17:58 Estimat Average Glucose 120 03/08/23 17:58 Hemoglobin A1c 5.8 % (4.0-6.0) 03/08/23 17:58 Calculated Osmolality 302 mOsm/kg (285-295) H 03/08/23 17:58 Calcium 8.9 mg/dL (8.5-10.5) 03/08/23 17:58 Magnesium 2.1 mg/dL (1.7-2.3) 03/08/23 17:58 Total Bilirubin 0.8 mg/dL (0.15-1.2) 03/08/23 17:58 AST 14 U/L (0-40) 03/08/23 17:58 ALT 20 U/L (0-41) 03/08/23 17:58 Alkaline Phosphatase 118 U/L (40-130) 03/08/23 17:58 Troponin T Baseline 13 ng/L (0-15) 03/08/23 17:58 Troponin T 120 Minute 19.10 ng/L (0-15) H 03/08/23 19:37 Delta Troponin T 6.10 ABS# (0-10) 03/08/23 19:37 Total Protein 7.1 g/dL (6.6-8.7) 03/08/23 17:58 Albumin 4.5 g/dL (3.5-5.2) 03/08/23 17:58 Globulin 2.6 g/dL (1.3-4.6) 03/08/23 17:58 Procalcitonin 0.05 ng/mL (0-0.5) 03/08/23 17:58 TSH 1.52 uIU/mL (0.27-4.20) 03/08/23 17:58 TSH 1.63 uIU/mL (0.27-4.20) 03/08/23 17:58 Discharge Plan Discharge Patient Disposition: Admitted As Inpatient Admit Provider: Danita Nunez Clinical Impression: Pre-syncope, Bradycardia, Chest pain, exertional, Exertional dyspnea Condition: Stable Discharge Activity: Increase activity as tolerated Coding Level of Care Code ED Patrol Community Service Officer for Ender Landeros
[2023-03-08 18:05] LABS: Basophils # 0.1 10^3/uL (0.0-0.1); Basophils % 0.6 %; Eosinophils # 0.6 10^3/uL (0.0-0.8); Eosinophils % 6.9 %; Hematocrit 51.6 % (42.0-52.0); Hemoglobin 16.4 g/dL (11.7-16.6); Lymphocytes % 24.6 %; Mean Corpuscular HGB Conc 31.8 g/dL (30.0-36.0); Mean Corpuscular Hemoglobin 27.7 pg (28.0-34.0); Mean Corpuscular Volume 87.2 fl (80-94); Mean Platelet Volume 10.3 fL (7.4-10.4); Monocytes # 0.6 10^3/uL (0.2-0.9); Monocytes % 7.7 %; Neutrophils # 4.97 10^3/uL (1.8-7.7); Neutrophils % 60.1 %; Nucleated Red Blood Cells % 0 %; Platelet Count 235 10^3/cmm (130-400); Red Blood Count 5.92 10^6/uL (4.1-5.3); Red Cell Distribution Width 13.2 % (12.1-15.1); White Blood Count 8.3 10^3/uL (4.0-10.0)
--- NOTE | 2023-03-08 18:12 | PC.NURSE ---
pt on bedside monitoring tech
[2023-03-08 18:15] LABS: INR 1.39 (0.8-1.2)
[2023-03-08 18:27] LABS: Troponin(5th) Baseline 13 ng/L (0-15)
[2023-03-08 18:30] LABS: Albumin Level 4.5 g/dL (3.5-5.2); Chloride 108 mmol/L (98-107); Potassium 4.6 mmol/L (3.5-5.1); Sodium 146 mmol/L (136-145)
[2023-03-08 18:48] LABS: Alanine Aminotransferase 20 U/L (0-41); Alkaline Phosphatase 118 U/L (40-130)
[2023-03-08 19:05] LABS: Anion Gap 17.6 (5-19); Aspartate Amino Transferase 14 U/L (0-40); Blood Urea Nitrogen 12 mg/dL (8-23); Calcium 8.9 mg/dL (8.5-10.5); Carbon Dioxide 25 mmol/L (22-29); Globulin 2.6 g/dL (1.3-4.6); Glucose 96 mg/dL (65-115); Osmolality Calculated 302 mOsm/kg (285-295); Total Bilirubin 0.8 mg/dL (0.15-1.2); Total Protein 7.1 g/dL (6.6-8.7)
[2023-03-08 19:35] LABS: Magnesium 2.1 mg/dL (1.7-2.3); Thyroid Stimulating Hormone 1.52 uIU/mL (0.27-4.20)
--- NOTE | 2023-03-08 19:51 | ECG_ITS ---
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 Measurements Intervals [place] Rate: 48 P: 52 [place]: 166 QRS: 11 QRSD: 116 T: 64 QT: 445 QTc: 400 Interpretive Statements SINUS BRADYCARDIA POSSIBLE LEFT ATRIAL ENLARGEMENT [-0.1mV P-WAVE IN V1/V2] INCOMPLETE RIGHT BUNDLE BRANCH BLOCK [90+ ms QRS DURATION, TERMINAL R IN V1/V2, 40+ ms S IN I/aVL/V4/V5/V6] Compared to ECG 03/08/2023 15:15:28 Bradycardia, nonsinus no longer present Indeterminate axis no longer present ST (T wave) deviation no longer present Electronically Signed On 03-08-2023 20:41:36 CDT by Hamzah Luis M.D. [id number]
--- NOTE | 2023-03-08 20:39 | P.HP_ITS ---
Providers/Chief Complaint Admitting Physician: Danita Nunez MD Primary Care Provider: Giorgi Cortes MD Chief Complaint: low back pain/tight chest/dizzy History of Present Illness Dariel Peck is a 62 year old male with past medical history of atrial fibrillation, hypertension presented to the ER for episodes of lightheadedness dizziness and blacking out. He states he has never actually passed out however has had blurry vision and feels he is having a blackout however has not actually passed out. He states that this has gotten worse and worse over the last few weeks. He said this all started about 3 weeks ago. He also has shortness of breath on exertion. He feels like he has no energy. At times he feels lightheaded. He does have a history of CAD status post 2 stents in 2017. He states he is also been having some headaches lately. He also had a few episodes of diarrhea last week however that has resolved on its own by now. He has been seen at [facility] in [place] at which point he was noted to have some hypotension which improved with treatment. At this point he is symptom-free. He did see cardiology today and stated that he was not feeling well. He does get short of breath with minimal exertion. Also complains of substernal chest discomfort radiating to the back and intrascapular region. Patient states that he has to stop to catch his breath and cannot walk more than a few steps without dyspnea. 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 Denies any history of PE or DVT in the past. States he does have active sleep apnea has a CPAP machine at home but does not really like to use it. Denies current smoking however did smoke for 3 years and quit in 1979. Denies alcohol use at this time. His last angiogram was in 2019 which did show severe coronary artery disease with one-vessel disease. He was sent in by cardiology today. proBNP midnight with plan of angiogram in AM. Xarelto will be held. Patient did ask whether he is a candidate for pacemaker because he has been told that his heart rate drops when he sleeps. Medications/Allergies Home Medications Medication Instructions Recorded Confirmed Last Taken Type nitroglycerin 0.4 mg sublingual 0.4 mg sublingual Q5M PRN Chest 11/03/20 03/08/23 Unknown Rx tablet (Nitrostat) Pain #60 tabs rivaroxaban 10 mg tablet (Xarelto) 10 mg PO DAILY #90 tabs 06/09/22 03/08/23 03/08/23 07:00 Rx lovastatin 40 mg tablet 40 mg PO BEDTIME 09/13/22 03/08/23 03/05/23 19:00 Hi story amlodipine 10 mg tablet 10 mg PO DAILY #90 tabs 10/11/22 03/08/23 03/08/23 07:00 Rx valsartan 80 mg tablet 80 mg PO BID #60 tabs 02/28/23 03/08/23 03/08/23 19:00 Rx sotalol 80 mg tablet 40 mg PO DAILY 03/08/23 03/08/23 03/08/23 07:00 History Allergies Allergy/AdvReac Type Severity Reaction Status Date / Time morphine Allergy ADR-Vomitin Verified 03/08/23 14:25 g lisinopril AdvReac ADR-Cough Verified 03/08/23 14:25 PFSH Acute PFSH: Medical History Atrial fibrillation CAD in [place] artery Carotid artery disease Carotid artery disease Heart failure Heart failure with preserved ejection fraction HTN (hypertension) Hyperlipidemia Ischemic cardiomyopathy SHENA (obstructive sleep apnea) Sensorineural hearing loss Sleep apnea Tachy-favian syndrome Surgical History S/P knee surgery S/P PTCA (percutaneous transluminal coronary angioplasty) Family History Mother Myocardial infarction Social History Smoking and tobacco status: never smoked Quit status (tobacco): has quit using tobacco Year quit tobacco: 1979 - 0.5 PPD x 3 Years Second hand smoke exposure: Yes Alcohol intake: former Substance/Drug Use: never Lives independently: Yes Household members: significant other Marital status: Life Partner Current occupational status: employed Current occupation: [employer] Current occupational exposures/hazards: No Do you think of yourself as: Straight/Heterosexual Current gender identity: Male Vitals/I&O/Wt Last Vital Signs Temp 98.3 F 03/08/23 15:09 Pulse 50 L 03/08/23 20:32 Resp 18 03/08/23 20:32 BP 149/85 03/08/23 20:32 Pulse Ox 95 03/08/23 20:32 O2 Del Method Room Air 03/08/23 19:30 Weight last 48 hrs Weight 147.418 kg Physical Exam Narrative: General: Alert oriented x3, patient seen laying flat in bed appearing comfortable saturating well on room air. HEENT: Normocephalic, atraumatic, EOMI, Cardio: Regular rate rhythm, normal S1-S2, Respiratory: Clear to auscultation bilaterally no wheezes no rhonchi GI: Abdomen soft, nontender, bowel sounds + Extremities: no edema, no cyanosis Data 03/09/23 03:24 03/08/23 17:58 A&P Assessment and plan (1) Pre-syncope: (2) Bradycardia: (3) Chest pain, exertional: (4) Exertional dyspnea: (5) Palpitations: (6) Double vision: (7) Dizziness: (8) Tachy-favian syndrome: (9) Carotid artery disease: Plan #Presyncope, lightheadedness, dizziness, near syncope #Shortness of breath on exertion #History of CAD status post PCI x2 stents 2016 #Works as 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 Check hemoglobin A1c, TSH, orthostatic vitals ? N.p.o. at midnight for angiogram in a.m. ? Hold Xarelto ? Consult cardiology. Patient recommendations ? Counseled patient Encouraged to wear CPAP at nighttime. He states he will think about it. -Discussed with cardiology over the phone. We will hold sotalol and valsartan tonight. Continue amlodipine. -We will check a D-dimer and proceed with CTA PE protocol if D-dimer elevated ? Start aspirin 81 daily ? Troponins negative ? EKG reviewed. No acute ischemic changes on admission. ? Normal saline 75 cc/h ? Check echocardiogram Full code SCDs, on Xarelto 10 mg daily, hold that today` Attestations Medical Necessity Statement*: Greater than 2 midnight stay for management of presyncope. Patient will be going for angiogram in the morning. Other Coding Information Focused coding review requested Diagnoses Pre-syncope R55 Bradycardia R00.1 Chest pain, exertional R07.9 Exertional dyspnea R06.09 Palpitations R00.2 Double vision H53.2 Dizziness R42 Tachy-favian syndrome I49.5 Carotid artery disease I77.9
--- NOTE | 2023-03-08 21:23 | USCV_ITS ---
Dariel Peck Age: 62 Gender: M : 1960 Exam Date: 03/08/2023 23:18 Ordering Phys: Hamzah Luis M.D ([email or web address]) Technologist: MELISSA Exam Location: [facility] [place] Indication: Chest pain, near syncope, history of atrial fibrillation, history of HTN, s/p cardiac stenting 2016 BP: 145 / 89 HR: 48 Rhythm: Sinus Technical Quality: Adequate with [employer]ISON MEASUREMENTS (Male / Female) Normal Values 2D ECHO LV Diastolic Diameter PLAX 4.7 cm 4.2 - 5.9 / 3.9 - 5.3 cm LV Systolic Diameter PLAX 2.9 cm IVS Diastolic Thickness 2.0 cm 0.6 - 1.0 / 0.6 - 0.9 cm IVS Systolic Thickness 2.4 cm LVPW Diastolic Thickness 1.3 cm 0.6 - 1.0 / 0.6 - 0.9 cm LVPW Systolic Thickness 2.0 cm LVOT Diameter 2.2 cm LV Ejection Fraction 2D Teich 69.4 % LV Ejection Fraction MOD 2C 61.9 % LV Ejection Fraction 2C AL 60.1 % LA Diameter 5.2 cm LA Width 4.7 cm LA Height 7.3 cm RA Width 3.3 cm RA Height 6.8 cm Aorta at Sinotubular Diameter 2.9 cm IVC Diameter 1.1 cm M-MODE Aortic Annulus Diameter 2.7 cm LA Ao Ratio MM 2.0 MV E Point Septal Separation 0.5 cm DOPPLER AV Peak Velocity 120.0 cm/s LVOT Peak Velocity 95.0 cm/s AV Area Cont Eq vti 3.4 cm squared AV Area Cont Eq pk 3.0 cm squared MV Area PHT 3.0 cm squared Mitral E to A Ratio 0.8 MV E' Velocity 38.0 cm/s Mitral E to MV E' Ratio 8.7 Mitral E to LV E' Lateral Ratio 8.7 Mitral E to LV E' Septal Ratio 8.8 TR Peak Velocity 246.0 cm/s TR Peak Gradient 24.2 mmHg TV Peak E Velocity 49.0 cm/s Right Atrial Pressure 10.0 mmHg Pulmonary Artery Systolic Pressu 34.2 mmHg PV Peak Velocity 82.0 cm/s RV Acceleration Time 0.1 s RV Ejection Time 0.3 s RV AcT/ET 0.3 FINDINGS Left Ventricle Left ventricle is normal in size. LV systolic function is normal with EF of 60 to 65%. No regional wall motion normalities are seen. Moderate left ventricular hypertrophy is noted. Grade 1 diastolic dysfunction Right Ventricle Normal in size and function Right Atrium Normal in size Left Atrium Normal in size Mitral Valve Structurally normal mitral valve. Mild mitral regurgitation. Aortic Valve Aortic valve is thickened. No significant stenosis or regurgitation Tricuspid Valve Trace tricuspid regurgitation. Insufficient TR jet to calculate RVSP Pulmonic Valve Not well-visualized Pericardium Normal Aorta Normal in size IVC Appears to be normal CONCLUSIONS LV systolic function is normal with EF of 60-65% Moderate left ventricular hypertrophy Grade 1 diastolic dysfunction Mild mitral regurgitation Trace tricuspid regurgitation No comparison studies are available. Hamzah Luis MD (Electronically Signed) Final Date: 09 March 2023 10:27 S
[2023-03-08] MEDS: pantoprazole 40 mg SDV IVP (21:49)
[2023-03-08] MEDS: sodium chloride 0.9% 1,000 ML 75 ML IV (21:50)
[2023-03-08 21:51] LABS: Thyroid Stimulating Hormone 1.63 uIU/mL (0.27-4.20)
[2023-03-08 22:03] LABS: Estmated Average Glucose 120; Hemoglobin A1C 5.8 % (4.0-6.0)
[2023-03-08 22:56] LABS: Procalcitonin 0.05 ng/mL (0-0.5)
[2023-03-09] VITALS (15 sets, daily range): BP systolic 107–162; BP diastolic 64–96; PULSE 47–75; RESP 10–19; TEMP 36.7–36.9; O2SAT 94–97
[2023-03-09 00:13] LABS: Troponin 5 6HR 13.03 ng/L (0-15)
[2023-03-09 00:20] LABS: Troponin 5 6HR Delta 0.03 ng/L (0-12)
[2023-03-09 03:37] LABS: Basophils # 0.1 10^3/uL (0.0-0.1); Basophils % 0.6 %; Eosinophils # 0.5 10^3/uL (0.0-0.8); Eosinophils % 6.6 %; Hemoglobin 14.7 g/dL (11.7-16.6); Lymphocytes # 1.8 10^3/uL (0.8-4.8); Lymphocytes % 22.1 %; Mean Corpuscular Hemoglobin 27.5 pg (28.0-34.0); Mean Corpuscular Volume 86.1 fl (80-94); Mean Platelet Volume 10.2 fL (7.4-10.4); Monocytes # 0.7 10^3/uL (0.2-0.9); Monocytes % 8.6 %; Nucleated Red Blood Cells % 0 %; Platelet Count 228 10^3/cmm (130-400); Red Blood Count 5.34 10^6/uL (4.1-5.3); Red Cell Distribution Width 13.1 % (12.1-15.1); White Blood Count 7.9 10^3/uL (4.0-10.0)
[2023-03-09 03:59] LABS: Anion Gap 13.9 (5-19); Blood Urea Nitrogen 13 mg/dL (8-23); Calcium 8.7 mg/dL (8.5-10.5); Carbon Dioxide 24 mmol/L (22-29); Chloride 108 mmol/L (98-107); Glomerular Filtration Rate 85.8 mL/min (90-130); Glucose 104 mg/dL (65-115); Osmolality Calculated 294 mOsm/kg (285-295); Potassium 3.9 mmol/L (3.5-5.1); Sodium 142 mmol/L (136-145)
--- NOTE | 2023-03-09 04:01 | USCV_ITS ---
Dariel Peck Age: 62 Gender: M : 1960 Exam Date: 03/09/2023 07:39 Ordering Phys: Danita Nunez MD Technologist: SUREKHA [place] [facility] [place]: Pre-Syncope Risk Factors: Previous Vascular Surgery: Right Brachial BP: / Left Brachial BP: / Right Left Velocity (cm/s) Spectral Plaque Velocity (cm/s) Spectral Plaque Syst/Diast Broadening Syst/Diast Broadening 98.30/ 22.20 Prox CCA 84.60 / 21.40 89.70/ 19.70 Mid CCA 87.20 / 20.50 73.50/ 20.50 Distal CCA 107.70/ 26.50 75.40/ 16.30 Prox ICA 64.10 / 23.10 72.20/ 17.90 Mid ICA 106.00/ 28.20 47.40/ 17.90 Distal ICA 75.20 / 17.10 114.50 ECA 117.10 0.77 ICA/CCA 0.98 Antegrade Vertebral Antegrade 27.80/ 8.00 cm/s 29.90/ 12.80 cm/s Tri Subclavian Tri 142.0 106.5 0 0 CONCLUSIONS Right ICA stenosis <50%. Mild atheromatous plaque right carotid bulb/ICA. Left ICA stenosis <50%. Mild atheromatous plaque left carotid bulb/ICA. Normal antegrade Doppler flow noted in the right vertebral artery. Normal antegrade Doppler flow noted in the left vertebral artery. Wilfrido Thomason MD (Electronically Signed) Final Date: 09 March 2023 13:35 S
[2023-03-09 04:22] LABS: D Dimer <= 0.27 ug/mIFEU (0-0.59)
[2023-03-09 04:28] LABS: Procalcitonin 0.06 ng/mL (0-0.5)
--- NOTE | 2023-03-09 07:42 | P.CONIM_ITS ---
Providers/Reason For Consult Consulting Physician/Specialty*: Hamzah Luis MD/ Cardiology Reason for Consult*: Worsening angina Requesting Physician: Dr Min Attending Physician: Danita Nunez MD Primary Care Provider: Giorgi Cortes MD History of Present Illness History of Present Illness Dariel Peck is a 62 year old male with past medical history of sick sinus syndrome, CAD, atrial fibrillation on sotalol who was seen in the office yesterday with complaints of worsening dyspnea on exertion and chest discomfort episodes. He is also feeling he blacks out frequently. These symptoms have been worsening over the last 1 month. Patient's troponins have have not trended up significantly. He has been staying bradycardic. We have held sotalol. EKG shows sinus bradycardia with heart rate of 48 bpm, incomplete right bundle branch block and non specific ST T wave changes Review of Systems Const: Reports: fatigue Eyes: Reports: blurry vision Card: Reports: chest pain, palpitations, irregular heart rhythm, swelling of feet/ankles, lightheadedness, pre-syncope, dyspnea on exertion and orthopnea; Denies: leg pain with exertion Resp: Reports: dyspnea; Denies: productive cough or non-productive cough Musc: Reports: neck pain and back pain Neuro: Reports: headache(s); Denies: dizziness Psych: Reports: anxiety; Denies: depression, suicidal ideation or homicidal ideation Temo/Lymph: Reports: easy bruising and easy bleeding Medications/Allergies Home Medications Medication Instructions Recorded Confirmed Last Taken Type nitroglycerin 0.4 mg sublingual 0.4 mg sublingual Q5M PRN Chest 11/03/20 03/08/23 Unknown Rx tablet (Nitrostat) Pain #60 tabs rivaroxaban 10 mg tablet (Xarelto) 10 mg PO DAILY #90 tabs 06/09/22 03/08/23 03/08/23 07:00 Rx lovastatin 40 mg tablet 40 mg PO BEDTIME 09/13/22 03/08/23 03/05/23 19:00 History amlodipine 10 mg tablet 10 mg PO DAILY #90 tabs 10/11/22 03/08/23 03/08/23 07:00 Rx valsartan 80 mg tablet 80 mg PO BID #60 tabs 02/28/23 03/08/23 03/08/23 19:00 Rx sotalol 80 mg tablet 40 mg PO DAILY 03/08/23 03/08/23 03/08/23 07:00 History Allergies Allergy/AdvReac Type Severity Reaction Status Date / Time morphine Allergy ADR-Vomitin Verified 03/08/23 14:25 g lisinopril AdvReac ADR-Cough Verified 03/08/23 14:25 Current Medications Generic Name Dose Route Start Last Admin Trade Name Freq PRN Reason Stop Dose Admin Sodium Chloride 1,000 mls @ 75 mls/hr 03/08/23 21:15 03/08/23 21:50 Sodium Chloride 0.9% IV 75 mls/hr .[id number] MARGOT Administration Pantoprazole Sodium 40 mg 03/08/23 21:15 03/08/23 21:49 Pantoprazole 40 Mg Sdv IVP 40 mg Q24H MARGOT Administration PFSH Acute PFSH: Medical History Atrial fibrillation CAD in [place] artery Carotid artery disease Carotid artery disease Heart failure Heart failure with preserved ejection fraction HTN (hypertension) Hyperlipidemia Ischemic cardiomyopathy SHENA (obstructive sleep apnea) Sensorineural hearing loss Sleep apnea Tachy-favian syndrome Surgical History S/P knee surgery S/P PTCA (percutaneous transluminal coronary angioplasty) Family History Mother Myocardial infarction Social History Smoking and tobacco status: never smoked Quit status (tobacco): has quit using tobacco Year quit tobacco: 1979 - 0.5 PPD x 3 Years Second hand smoke exposure: Yes Alcohol intake: former Substance/Drug Use: never Lives independently: Yes Household members: significant other Marital status: Life Partner Current occupational status: employed Current occupation: [employer] Current occupational exposures/hazards: No Do you think of yourself as: Straight/Heterosexual Current gender identity: Male Vitals/I&O/Wt Last Vital Signs Temp 98.0 F 03/09/23 04:00 Pulse 49 L 03/09/23 06:00 Resp 16 03/09/23 04:00 BP 133/64 03/09/23 04:00 Pulse Ox 94 03/09/23 04:00 O2 Del Method Room Air 03/09/23 04:00 03/08/23 03/09/23 03/09/23 22:59 06:59 14:59 Intake Total 480 / 480 Output Total 150 / 150 200 / 350 Balance 330 / 330 -200 / 130 Weight last 48 hrs Weight 325 lb Physical Exam Narrative: GENERAL: Patient is alert, awake and oriented x3. NECK: No jugular vein distension. HEENT: No cyanosis. No icterus. No pallor. HEART: Regular S1 and S2. No murmur, rub or gallop. LUNGS: Clear to auscultate bilaterally. CENTRAL NERVOUS SYSTEM: Grossly nonfocal. EXTREMITIES: Lower extremities without edema bilaterally. Data 03/09/23 03:24 03/09/23 03:24 A&P Assessment and plan (1) Exertional dyspnea: (2) Chest pain: (3) Bradycardia: (4) Pre-syncope: (5) HTN (hypertension): Qualifiers: Hypertension type: essential hypertension Qualified Code(s): I10 - Essential (primary) hypertension (6) Atrial fibrillation: Qualifiers: Atrial fibrillation type: persistent (not longstanding) Qualified Code(s): I48.19 - Other persistent atrial fibrillation Plan Patient has been having worsening symptoms of dyspnea on exertion and chest discomfort. Concern for unstable angina. Also has episodes of blacking out. We will proceed with coronary angiogram with possible percutaneous coronary interv ention. Risks and benefits of the procedure have been discussed with the patient. Keep holding sotalol. Telemetry monitoring. Echocardiogram ordered. Thank you for involving us with care of this patient. We will continue to follow. Please call with questions. Consult Attestations Medical Necessity Statement: Care expected to cross 2 midnights. Coding Level of Care Code Acute Code for Chg Fwd Diagnoses Exertional dyspnea R06.09 Chest pain R07.9 Bradycardia R00.1 Pre-syncope R55 HTN (hypertension) I10 Hypertension type: essential hypertension Atrial fibrillation I48.19 Atrial fibrillation type: persistent (not longstanding)
[2023-03-09] MEDS: aspirin 81 mg EC Tablet PO (08:29)
--- NOTE | 2023-03-09 08:30 | XACV_ITS ---
Exam Room: [facility] Ht: 185 cm Wt: 147 kg BSA: 2.82 m2 Gender: Male : 1960 Any Known Allergies: Other Exam Priority: Routine Procedure(s): Procedure Description: Diagnostic procedure Procedure Description: Left Heart Catheterization Procedure Description: Left ventriculography Procedure Description: Coronary Angiography Diagnostic Cath Status: Urgent Diagnostic Findings * INDICATION: 62 year old male with past medical history of sick sinus syndrome, CAD, atrial fibrillation on sotalol who was seen in the office yesterday with complaints of worsening dyspnea on exertion and chest discomfort episodes. He is also feeling he blacks out frequently. These symptoms have been worsening over the last 1 month. Patient's troponins have have not trended up significantly. Plan for coronary angiogram with possible percutaneous coronary intervention. * Circumflex has chronic total occlusion in the mid segment with collateral blood supply from RCA. * Right Coronary Artery has diffuse luminal irregularities. * Left Main has no disease. * Proximal Left Anterior Descending: minimal 30% stenosis, MITCH: 3 flow. * Coronary angiography shows right dominance. Conclusions 1. 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 Otherwise non obstructive CAD with patent prior stents in LAD and RCA. 2. Normal left ventricular systolic function. Ejection fraction of 65%. Recommendations * Aggressive risk factor modification. * Further workup for alternative reason for syncope/ dyspnea on exertion and chest pain. * Outpatient cardiology follow up in 2-4 weeks. Interventional RX Recommendation: medical therapy and/or counseling Diagnostic RX Recommendation: medical therapy and/or counseling Ventriculography Ejection Fraction: 65.0 % Pressures Phase:Rest AO : 135 / 83 ( 106 ) @ 9:54:00 AM 173 / 95 ( 129 ) @ 10:03:00 AM 172 / 94 ( 129 ) @ 10:03:00 AM LV : 197 / -7 / 21 @ 10:01:00 AM 179 / 0 / 27 @ 10:03:00 AM 181 / 0 / 28 @ 10:03:00 AM Valves Phase:DefaultPhase AV : 8.0 @ 9:09:37 AM 8.0 @ 9:09:37 AM AV Mean Gradient: 14.0 @ 9:09:37 AM 14.0 @ 9:09:37 AM Clinical Evaluation EBL: 5mL-10mL Procedural Details Procedure Consent Obtained. Admit Source: In Patient. Pre-Procedure Time Out. Identified patient by full name and date of as verbalized by the patient/guarantor. Does the consent match the physician's order: Yes. Accurate & Complete Informed Consent: Yes. Inpatient/Outpatient History & Physical on Chart: Yes. If H&P is completed, is and addenduem needed: No; If yes, is the addendum complete: N/A. Visualize and Verify Site with Patient/Guarantor: N/A. Relevant Radiology Images available: No. The risks, benefits, and alternatives of sedation and/or procedure were discussed by physician. The patient agrees to continue. Procedure started. [facility] Clinical Fraility Score: 3: Managing Well. Ingot Header Indications: Worsening Angina. Chest Pain Symptom Assessment: Atypical Angina. Correct patient, site and procedure confirmed by cath team. Current diagnosis: Chest Pain. PERRLA. Strong, equal hand gun examiner bilaterally. Lungs clear x 5 lobes. IV Site on Arrival: 20 gauge in the left anticubital. IV Fluids: 0.9% NaCl at 75ml/hr. 800 mL infused prior to laborer vineyard. Pre Procedural Pulses: bilateral dorsalis pedis was 3+. Pre Procedural Pulses: bilateral posterior tibial was 2+. Pre Procedural Pulses: bilateral radial was 3+. Oxygen started at 2liters/min via nasal canula. right groin was prepped with chloroprep then draped in the usual sterile fashion. right radial was prepped with chloroprep then draped in the usual sterile fashion. Physician notified. Baseline sample Acquired. HR: 69 BPM. Physician arrived. Physician scrubbed in. Immediate Pre-Procedure Time Out. Correct Patient: Yes; Correct Procedure: Yes; Correct Site: Yes; Correct Patient Position: Yes; Correct Supplies: Yes; Dried Flammable Prep: Yes; Blood Products Available: No;. Lidocaine 1% infiltrated to the right radial. Arterial access obtained. A 5 turkmen TIG catheter in over wire. Multiple views taken of left coronary artery. Catheter redirected to the RCA. Multiple views taken of right coronary artery. Physician review of cine films. Catheter removed over the exchange wire. A 5 turkmen Angled Pig catheter in over wire. EDP Sample taken: LV 197/-8,21; HR: 77 BPM; SpO2: 96%. LV gram performed in ARREDONDO @ 10 mL/second for a total of 30 mL. EDP Sample taken: LV 179/-1,27; HR: 78 BPM; SpO2: 97%. Pullback taken: LV 181/0,28; AO 173/95(129); Mean: 14mmHg, Peak to Peak: 8mmHg, SEP: 17sec/min; HR: 78 BPM; SpO2: 96%. Catheter removed over the exchange wire. Physician scrubbed out. A TR Band was successful obtaining hemostatsis at the Right Radial artery insertion site. Post Procedure: Pulses reassessed and unchanged. PERRLA. Strong, equal hand gun examiner bilaterally. Medication's Wasted: Lidocaine 1% = 1 mL. Medication's Wasted: Nitro = 49.8 mg. Medication's Wasted: Heparin = 1000 units. Medication's Wasted: Other = Fentanyl 50 mcg. Total IV fluids: 28 mL. Post-op diagnosis: Complete total occlusion of circumflex. Complications: None. Estimated blood loss: 5mL-10mL. Responsiveness - Normal response to verbal stimuli; alert and oriented, PERRLA. Airway - Unaffected, no intervention required; spontaneous ventilation. Circulation: W/N/L, pulses unchanged. Nausea/Vomiting: No. Procedure completed. Patient transferred by bed to 1st floor. Vital chart was stopped. Access Site Site: Right Radial artery Sheath Size: 6 Fr Hemostasis Method: TR Band Hemostasis Success: Successful Procedure Medications Start: 8:46 AM Stop: 8:46 AM Medication: Fentanyl Amount: 50 mcg Route: I.V. Start: 8:47 AM Stop: 8:47 AM Medication: Versed Amount: 1 mg Route: I.V. Start: 8:50 AM Stop: 8:50 AM Medication: Versed Amount: 1 mg Route: I.V. Start: 8:52 AM Stop: 8:52 AM Medication: Nitrogylcerin Amount: 200 mcg Route: I.A. Start: 8:54 AM Stop: 8:54 AM Medication: Heparin Amount: 5000 units Route: I.V. I, the attending physician, have reviewed and verified all procedure medications. Yes, all medications given per verbal order History/Risk Factors Hypertension: Yes Dyslipidemia: No Peripheral Arterial Disease (PAD): No Myocardial Infarction (WI): No Obesity: No Renal Disease: No Tobacco Use: Former Prior Interventions PCI: Yes CABG: No Valve Surgery: No Date of PCI: 01/07/2015 Report Signatures Finalized by Hamzah Luis MD on 03/13/2023 03:38 PM
--- NOTE | 2023-03-09 08:30 | PC.NURSE ---
patient off unit 0830 for blender laborer
--- NOTE | 2023-03-09 08:46 | W.PM.OPSUD ---
Surgery/Procedure H&P Update DATE OF PROCEDURE: March 09, 2023 DATE H&P PERFORMED: 03/09/23 H&P UPDATE INFORMATION: I have reviewed H&P completed within last 30 days, I have examined patient prior to procedure and No changes to prior documentation PREOP DIAGNOSIS: Worsening angina/presyncope PRIMARY INDICATION FOR PROCEDURE: Worsening angina/presyncope PLANNED PROCEDURE: Coronary angiogram with possible percutaneous coronary intervention PATIENT REASSESSED PRIOR TO SEDATION, WITH NO CHANGE NOTED: Yes PHYSICAL EXAM: alert, oriented x 3 and clear to auscultation bilaterally AIRWAY EVAL/ANESTHESIA PLAN: normal airway, ASA III, Local Anesthesia, Risks, benefits & alternatives of sedation and/or procedure discussed and Patient agrees to continue as planned ADDITIONAL INFORMATION: Moderate sedation
--- NOTE | 2023-03-09 09:19 | PC.NURSE ---
patient back in room at 0916.
[2023-03-09] MEDS: perflutren protein-a microsphr 0.22 mg/mL SDV 3 mL IV (09:25)
--- NOTE | 2023-03-09 09:41 | PM.PN ---
Subjective Subjective: This morning's chest pain-free Awake and alert Noncompliant Active discomfort Going for angiogram Vitals/I&O/Wt Last Vital Signs Temp 98.0 F 03/09/23 04:00 Pulse 59 L 03/09/23 09:20 Resp 15 03/09/23 09:20 BP 137/76 03/09/23 09:20 Pulse Ox 95 03/09/23 09:20 O2 Del Method Room Air 03/09/23 09:20 03/08/23 03/09/23 03/09/23 22:59 06:59 14:59 Intake Total 480 / 480 Output Total 150 / 150 200 / 350 250 / 250 Balance 330 / 330 -200 / 130 -250 / -250 Weight last 48 hrs Weight 147.418 kg Physical Exam Narrative: Morbidly obese Distended abdomen nontender S1, S2 variable Abdomen soft Currently on room air Awake and alert GCS 15 nonfocal neuro exam Data 03/09/23 03:24 03/09/23 03:24 A&P Assessment and plan (1) Pre-syncope: (2) Chest pain, exertional: (3) Exertional dyspnea: (4) Palpitations: (5) Chest pain: (6) Bradycardia: (7) Tachy-favian syndrome: (8) Carotid artery disease: (9) Prediabetes: (10) Dizziness: Plan Unstable angina Presyncope Concern for tachybradycardia syndrome Coronary angiogram unremarkable We will start patient on cardiac diet Patient is symptom-free We will watch his heart rhythm and rate on telemetry for next 24 hours Further plan will be made after reviewing telemetry tomorrow D-dimer is unremarkable Follow-up carotid Doppler study Patient does not smoke or drink alcohol daily basis A-fib without RVR, Xarelto on hold in case he would require any pacemaker evaluation Appreciate cardiology put We will follow-up with echo report and carotid Doppler Full code We will resume his Xarelto tomorrow after reviewing telemetry once we rule out if pacemaker is not indicated Attestations Medical Necessity Statement*: Possible discharge tomorrow Diagnoses Pre-syncope R55 Chest pain, exertional R07.9 Exertional dyspnea R06.09 Palpitations R00.2 Chest pain R07.9 Bradycardia R00.1 Tachy-favian syndrome I49.5 Carotid artery disease I77.9 Prediabetes R73.03 Dizziness R42
[2023-03-09] MEDS: sodium chloride 0.9% 1,000 ML 75 ML IV (11:08)
--- NOTE | 2023-03-09 11:16 | PC.NURSE ---
1005 - 15ml 3ml removed. 1020 -12ml 3ml removed 1035 - 9ml 3ml removed 1045 - 6ml 3ml removed 1055 - 3ml 3ml removed 1110 TR band removed. palatable pulse, no hematoma present. dressing placed cleaned and intact
[2023-03-09] MEDS: amlodipine 10 mg Tablet PO (12:11)
[2023-03-09] MEDS: atorvastatin 40 mg Tablet PO (19:57)
[2023-03-09] MEDS: pantoprazole 40 mg SDV IVP (19:57)
[2023-03-10] VITALS (7 sets, daily range): BP systolic 117–150; BP diastolic 63–86; PULSE 48–65; RESP 11–18; TEMP 36.4–36.7; O2SAT 94–97
[2023-03-10 05:02] LABS: Basophils # 0.1 10^3/uL (0.0-0.1); Basophils % 0.8 %; Eosinophils # 0.5 10^3/uL (0.0-0.8); Eosinophils % 6.8 %; Hemoglobin 14.9 g/dL (11.7-16.6); Lymphocytes # 1.8 10^3/uL (0.8-4.8); Lymphocytes % 24.5 %; Mean Corpuscular HGB Conc 31.7 g/dL (30.0-36.0); Mean Corpuscular Hemoglobin 27.3 pg (28.0-34.0); Mean Corpuscular Volume 86.1 fl (80-94); Mean Platelet Volume 10.3 fL (7.4-10.4); Monocytes # 0.7 10^3/uL (0.2-0.9); Monocytes % 9.3 %; Neutrophils % 58.3 %; Nucleated Red Blood Cells % 0 %; Platelet Count 234 10^3/cmm (130-400); Red Blood Count 5.46 10^6/uL (4.1-5.3); Red Cell Distribution Width 13.2 % (12.1-15.1); White Blood Count 7.2 10^3/uL (4.0-10.0)
[2023-03-10 05:24] LABS: Anion Gap 11.6 (5-19); Blood Urea Nitrogen 14 mg/dL (8-23); Calcium 8.6 mg/dL (8.5-10.5); Carbon Dioxide 25 mmol/L (22-29); Chloride 103 mmol/L (98-107); Creatinine Clr Calc Pharmacy 150.4116; Glomerular Filtration Rate 98.3 mL/min (90-130); Glucose 121 mg/dL (65-115); Osmolality Calculated 284 mOsm/kg (285-295); Potassium 3.6 mmol/L (3.5-5.1); Sodium 136 mmol/L (136-145)
--- NOTE | 2023-03-10 07:32 | P.PN_ITS ---
Subjective Subjective: Patient doing well. no chest pain. Vitals/I&O/Wt Last Vital Signs Temp 97.6 F 03/10/23 07:25 Pulse 57 L 03/10/23 07:25 Resp 18 03/10/23 07:25 BP 123/71 03/10/23 07:25 Pulse Ox 95 03/10/23 07:25 O2 Del Method Room Air 03/10/23 07:25 03/09/23 03/10/23 03/10/23 22:59 06:59 14:59 Intake Total 236 / 1748.5 Output Total 350 / 900 450 / 450 Balance -114 / 848.5 -450 / -450 Weight last 48 hrs Weight 325 lb Physical Exam Narrative: GENERAL: Patient is alert, awake and oriented x3. NECK: No jugular vein distension. HEENT: No cyanosis. No icterus. No pallor. HEART: Regular S1 and S2. No murmur, rub or gallop. LUNGS: Clear to auscultate bilaterally. CENTRAL NERVOUS SYSTEM: Grossly nonfocal. EXTREMITIES: Lower extremities without edema bilaterally. Data 03/10/23 04:42 03/10/23 04:42 A&P Assessment and plan (1) Exertional dyspnea: (2) Chest pain: (3) Bradycardia: (4) Pre-syncope: (5) HTN (hypertension): Qualifiers: Hypertension type: essential hypertension Qualified Code(s): I10 - Essential (primary) hypertension (6) Atrial fibrillation: Qualifiers: Atrial fibrillation type: persistent (not longstanding) Qualified Code(s): I48.19 - Other persistent atrial fibrillation Plan Patient's coronary angiogram did not reveal significant CAD explaining his symptoms. Medical therapy. We will continue holding sotalol. Outpatient event monitor. Resume anticoagulation Thank you for involving us with care of this patient. Please call with questions. Attestations Medical Necessity Statement*: Care expected to cross 2 midnights. Coding Level of Care Code Acute Code for [facility] Diagnoses Exertional dyspnea R06.09 Chest pain R07.9 Bradycardia R00.1 Pre-syncope R55 HTN (hypertension) I10 Hypertension type: essential hypertension Atrial fibrillation I48.19 Atrial fibrillation type: persistent (not longstanding)
[2023-03-10] MEDS: aspirin 81 mg EC Tablet PO (08:19)
[2023-03-10] MEDS: amlodipine 10 mg Tablet PO (08:19)
--- NOTE | 2023-03-10 10:07 | P.DS_ITS ---
Discharge Providers Date of Admission: 03/08/23 20:24 Date of Discharge: March 10, 2023 Attending Provider at Admission: Danita Nunez MD Attending Provider at Discharge: Diane Connolly MD Primary Care Provider: Giorgi Cortes MD Diagnoses at Discharge Discharge Diagnosis (1) Pre-syncope: Status: Acute (2) Chest pain, exertional: Status: Acute (3) Exertional dyspnea: Status: Acute (4) Palpitations: Status: Acute (5) Chest pain: Status: Acute (6) Bradycardia: Status: Acute (7) Tachy-favian syndrome: Status: Acute (8) Carotid artery disease: Status: Acute (9) Prediabetes: Status: Acute (10) Dizziness: Status: Acute Reason for Visit Reason for Visit: low back pain/tight chest/dizzy Hospital Course Hospital Course 62-year male with history of A-fib, hypertension, 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 He will be discharged home on event monitor for 30 days, he will follow-up with cardiology within a week. For his hypertension valsartan dose has been increased. Echo unremarkable, carotid Doppler unremarkable. Physical Exam Narrative: Awake and alert GCS 15 Morbid obesity Nonfocal neuro exam Sinus bradycardia Hypertensive Discharge Data Studies Completed and Pending Completed Studies During Hospitalization Category Date Time Status XR chest 1V portable [id number] Stat Exams 03/08/23 17:07 Completed CV carotid duplex BI* [id number] Routine Ultrasound 03/09/23 04:01 Completed CV. echo wo/w contrast [id number] Routine Ultrasound 03/08/23 21:23 Completed Pending at discharge Category Date Time Status [id number] NURSE request for service Routine Exams 03/09/23 08:30 Taken Sputum Culture and Gram Stain Stat Lab 03/09/23 04:00 Uncollected Radiology Impressions Chest X-Ray 03/08/23 17:07 IMPRESSION: No acute findings. Laboratory Results WBC 7.2 10^3/uL (4.0-10.0) 03/10/23 04:42 RBC 5.46 10^6/uL (4.1-5.3) H 03/10/23 04:42 Hgb 14.9 g/dL (11.7-16.6) 03/10/23 04:42 Hct 47.0 % (42.0-52.0) 03/10/23 04:42 MCV 86.1 fl (80-94) 03/10/23 04:42 MCH 27.3 pg (28.0-34.0) L 03/10/23 04:42 MCHC 31.7 g/dL (30.0-36.0) 03/10/23 04:42 RDW 13.2 % (12.1-15.1) 03/10/23 04:42 Plt Count 234 10^3/cmm (130-400) 03/10/23 04:42 MPV 10.3 fL (7.4-10.4) 03/10/23 04:42 Neut % (Auto) 58.3 % 03/10/23 04:42 Lymph % (Auto) 24.5 % 03/10/23 04:42 [place] % (Auto) 9.3 % 03/10/23 04:42 Eos % (Auto) 6.8 % 03/10/23 04:42 Baso % (Auto) 0.8 % 03/10/23 04:42 Neut # (Auto) 4.20 10^3/uL (1.8-7.7) 03/10/23 04:42 Lymph # (Auto) 1.8 10^3/uL (0.8-4.8) 03/10/23 04:42 [place] # (Auto) 0.7 10^3/uL (0.2-0.9) 03/10/23 04:42 Eos # (Auto) 0.5 10^3/uL (0.0-0.8) 03/10/23 04:42 Baso # (Auto) 0.1 10^3/uL (0.0-0.1) 03/10/23 04:42 Nucleated RBC % (auto) 0 % 03/10/23 04:42 Nucleated RBCs # 0.0 /100WBC 03/10/23 04:42 PT 17.50 SECONDS (12.1-14.9) H 03/08/23 17:58 INR 1.39 (0.8-1.2) H 03/08/23 17:58 D-Dimer <= 0.27 ug/mIFEU (0-0.59) 03/09/23 03:24 Sodium 136 mmol/L (136-145) 03/10/23 04:42 Potassium 3.6 mmol/L (3.5-5.1) 03/10/23 04:42 Chloride 103 mmol/L (98-107) 03/10/23 04:42 Carbon Dioxide 25 mmol/L (22-29) 03/10/23 04:42 Anion Gap 11.6 (5-19) 03/10/23 04:42 BUN 14 mg/dL (8-23) 03/10/23 04:42 Creatinine 0.8 mg/dL (0.7-1.2) 03/10/23 04:42 GFR Calculation 98.3 mL/min (90-130) 03/10/23 04:42 Glucose 121 mg/dL (65-115) H 03/10/23 04:42 Estimat Average Glucose 120 03/08/23 17:58 Hemoglobin A1c 5.8 % (4.0-6.0) 03/08/23 17:58 Calculated Osmolality 284 mOsm/kg (285-295) L 03/10/23 04:42 Calcium 8.6 mg/dL (8.5-10.5) 03/10/23 04:42 Magnesium 2.0 mg/dL (1.7-2.3) 03/09/23 03:24 Magnesium 2.0 mg/dL (1.7-2.3) 03/09/23 03:24 Total Bilirubin 0.8 mg/dL (0.15-1.2) 03/08/23 17:58 AST 14 U/L (0-40) 03/08/23 17:58 ALT 20 U/L (0-41) 03/08/23 17:58 Alkaline Phosphatase 118 U/L (40-130) 03/08/23 17:58 Troponin T Baseline 13 ng/L (0-15) 03/08/23 17:58 Troponin T 120 Minute 19.10 ng/L (0-15) H 03/08/23 19:37 Delta Troponin T 6.10 ABS# (0-10) 03/08/23 19:37 Troponin T Hi Sens 6Hr 13.03 ng/L (0-15) 03/08/23 23:43 Troponin T Hi Sens 6Hr Delta 0.03 ng/L (0-12) 03/08/23 23:43 Total Protein 7.1 g/dL (6.6-8.7) 03/08/23 17:58 Albumin 4.5 g/dL (3.5-5.2) 03/08/23 17:58 Globulin 2.6 g/dL (1.3-4.6) 03/08/23 17:58 Procalcitonin 0.06 ng/mL (0-0.5) 03/09/23 03:24 TSH 1.52 uIU/mL (0.27-4.20) 03/08/23 17:58 TSH 1.63 uIU/mL (0.27-4.20) 03/08/23 17:58 Vitals Last Vital Signs Temp 97.6 F 03/10/23 07:25 Pulse 55 L 03/10/23 08:20 Resp 11 L 03/10/23 08:20 BP 149/81 03/10/23 08:20 Pulse Ox 95 03/10/23 08:20 O2 Del Method Room Air 03/10/23 08:20 Discharge Plan Discharge Patient Disposition: Home Condition: Stable Prescriptions: Continued nitroglycerin [Nitrostat] 0.4 mg tablet, sublingual 0.4 mg SUBLINGUAL Q5M PRN (Reason: Chest Pain) Qty: 60 3RF Xarelto 10 mg tablet 10 mg PO DAILY Qty: 90 3RF amlodipine 10 mg tablet 10 mg PO DAILY Qty: 90 0RF Rx Instructions: MUST have follow-up with new provider for further refills lovastatin 40 mg tablet 40 mg PO BEDTIME Changed valsartan 80 mg tablet 160 mg PO BID Qty: 60 3RF Discontinued sotalol 80 mg tablet 40 mg PO DAILY Discharge Orders: Discharge Order (Routine); Ordered 03/10/23 Ordered By: Diane Connolly Other Ambulatory Orders: MCT/Event Monitor 30 Days (Routine) Timeframe: 1 Month Facility: [facility] - Location: Radiology Ordered By: Diane Connolly Referrals: Bhavya Cazares FNP [Nurse Practitioner] - 03/22/23 10:15 am Giorgi Cortes MD [Primary Care Provider] - Discharge Activity: Increase activity as tolerated Patient Instructions: Heart Catheterization (DC), Opioid Safety, Post Angiogram Home Care Instructions Discharge Attestations Time Spent in Discharge Care*: greater than 30 min Quality Metrics Clinical Quality Measures [ No reported AMI, CVA or VTE this stay] Coding Level of Care Code Acute Code for [facility] Diagnoses Pre-syncope R55 Chest pain, exertional R07.9 Exertional dyspnea R06.09 Palpitations R00.2 Chest pain R07.9 Bradycardia R00.1 Tachy-favian syndrome I49.5 Carotid artery disease I77.9 Prediabetes R73.03 Dizziness R42
--- NOTE | 2023-03-10 10:42 | PC.NURSE ---
pt dressed, IV removed, Home medications returned. pt taken by wheelchair to front door by staff.
== END 2023-03-10 10:47 | disposition home or self-care (01) | DRG 287 ==
LOC: ER 19:56 → CSU 20:24
PROVIDERS: Emergency Medicine; Internal Medicine; Admitting Provider Internal Medicine; Emergency Provider Emergency Medicine; PCP Family Medicine; Visit Provider Internal Medicine
PROC: 4A023N7 Measurement of Cardiac Sampling and Pressure, Left Heart, Percutaneous Approach (ICD-10-PCS; principal; 2023-03-09 08:30)
DX: I49.5 Sick sinus syndrome (principal); I25.110 Atherosclerotic heart disease of native coronary artery with unstable angina pectoris; I50.30 Unspecified diastolic (congestive) heart failure; Z68.41 Body mass index [BMI] 40.0-44.9, adult; I48.19 Other persistent atrial fibrillation; R55 Syncope and collapse; I11.0 Hypertensive heart disease with heart failure; E66.01 Morbid (severe) obesity due to excess calories; Z79.01 Long term (current) use of anticoagulants; Z87.891 Personal history of nicotine dependence; E78.5 Hyperlipidemia, unspecified; I25.5 Ischemic cardiomyopathy; G47.33 Obstructive sleep apnea (adult) (pediatric); H90.5 Unspecified sensorineural hearing loss
CPT/HCPCS: 36415; 71045; 80048; 80053; 83036; 83735; 84145; 84443; 84484; 85025; 85378; 85610; 93005; 93458; 93880; 94664; 96376; 99152; 99153; 99285; C1769; C1887; C1894; C8929; C9113; J1644; J2250; J3010; J3490; J7030; Q9956; Q9967

== ENCOUNTER → 2023-07-19 11:26 | Outpatient (BNVA) | payer SELFPAY | PROVIDERS: PCP Family Medicine; Referring Provider Family Medicine; Visit Provider Psychiatry & Neurology Neurology | DX: R42 Dizziness and giddiness (principal); I10 Essential (primary) hypertension; G44.209 Tension-type headache, unspecified, not intractable | CPT/HCPCS: 36415; 81241; 81291; 82306; 82607; 82746; 83090; 83735; 83921; 84439; 84443; 84481; 85210; 85613; 85730; 86146 ==

== ENCOUNTER 2023-07-26 08:00 | Emergency (ER) | payer SELFPAY ==
[2023-07-26 08:02] VITALS: BP 154/81; PULSE 95; RESP 16; O2SAT 96; BMI 41.2
--- NOTE | 2023-07-26 08:02 | XR_ITS ---
WS: [id number] Exam: XR chest 1V portable [id number] Date/Time of Exam: 07/26/2023 8:02 AM Reason For Exam: dyspnea/cough Comparison 03/08/2023. The lungs are clear and fully expanded. Heart size is top limits normal. No pleural effusions. Region al bony elements are intact. IMPRESSION: 1. No acute cardiopulmonary finding.
--- NOTE | 2023-07-26 08:02 | ECG_ITS ---
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 Measurements Intervals [place] Rate: 97 P: 0 [place]: 0 QRS: -62 QRSD: 100 T: 67 QT: 346 QTc: 440 Interpretive Statements ATRIAL FIBRILLATION INDETERMINATE AXIS INCOMPLETE RIGHT BUNDLE BRANCH BLOCK [90+ ms QRS DURATION, TERMINAL R IN V1/V2, 40+ ms S IN I/aVL/V4/V5/V6] LEFT ANTERIOR FASCICULAR BLOCK [QRS AXIS <= -45, QR IN I, RS IN II] Compared to ECG 03/08/2023 19:51:55 Indeterminate axis now present Left anterior fascicular block now present Sinus bradycardia no longer present Electronically Signed On 07-26-2023 11:05:30 CDT by Hamzah Luis M.D. [email or web address]
--- NOTE | 2023-07-26 08:03 | W.ED.ARRPALP ---
HPI - Arrhythmia/Palpitations General: Chief Complaint: Arrhythmia/Palpitations Stated Complaint: AFIB Time Seen by Provider: 07/26/23 08:01 Source: patient Mode of arrival: ambulatory History of Present Illness: 63-year-old male presents to the emergency room via EMS with a complaint of atrial fibrillation with RVR. Patient has known A-fib he is on anticoagulation he previously was on sotalol. Over the last few days he has noticed rapid heart rate is worse when he gets up and is any kind of exertion. He is complaining of what he describes as kidney pain in his flanks no dysuria urgency or frequency no hematuria. No trauma. When EMS encountered the patient initially in the field his heart rate was in the 120s to 130s. He was given 20 mg IV Cardizem. On arrival here his heart rate is well controlled in the 80s and 90s blood pressure is stable. He has not noticed any orthopnea he has noticed he gets lightheaded or dizzy over the last few days with any sort of exertion with a rapid and a rapid heart rate. Angiogram in February of this year did not show any significant coronary artery disease. MD complaint: rapid heart beat, heart racing , skipped beats and palpitations Onset (ago): day(s) Duration: intermittent Severity: mild Arrhythmia history: atrial fibrillation Associated symptoms: Deny anxiety, cough, diaphoresis, muscle cramps, nausea, paresthesias, pre-syncope, sense of impending doom, short of breath, syncope or vomiting Review of Systems Const: Denies: fever(s), chills or diaphoresis Card: Reports: palpitations and irregular heart rhythm; Denies: chest pain, edema, swelling of feet/ankles, syncope or pre-syncope Resp: Reports: dyspnea; Denies: productive cough or non-productive cough GI: Denies: abdominal pain, nausea or vomiting : Reports: flank pain; Denies: dysuria, urinary frequency or urinary urgency Musc: Denies: muscle cramps Skin/Breast: Denies: rash or pruritus Psych: Denies: anxiety PFSH ED PFSH: Medical History Atrial fibrillation Bradycardia CAD in [place] artery Carotid artery disease Carotid artery disease Chest pain Chest pain, exertional Dizziness Double vision Exertional dyspnea Heart failure Heart failure with preserved ejection fraction HTN (hypertension) Hyperlipidemia Ischemic cardiomyopathy SHENA (obstructive sleep apnea) Palpitations Pre-syncope Prediabetes Sensorineural hearing loss Sleep apnea Tachy-favian syndrome Surgical History S/P knee surgery S/P PTCA (percutaneous transluminal coronary angioplasty) Family History Mother Myocardial infarction Social History Smoking and tobacco status: never smoked Quit status (tobacco): has quit using tobacco Year quit tobacco: 1979 - 0.5 PPD x 3 Years Second hand smoke exposure: Yes Alcohol intake: former Substance/Drug Use: never Lives independently: Yes Household members: significant other Marital status: Life Partner Current occupational status: employed 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 Current occupational exposures/hazards: No Do you think of yourself as: Straight/Heterosexual Current gender identity: Male Physical Exam Const: GENERAL APPEARANCE: cooperative and comfortable ORIENTATION/CONSCIOUSNESS: Yes awake, Yes oriented to person, Yes oriented to place and Yes oriented to time HENMT: COMMON NORMALS: normocephalic, atraumatic and hearing grossly normal bilaterally HEAD & SCALP: normocephalic and atraumatic Resp: COMMON NORMALS: normal respiratory effort, No retractions, No use of accessory muscles and clear to auscultation bilaterally AUSCULTATION: clear to auscultation bilaterally Cardio: COMMON NORMALS: No murmurs present (Cardio) RATE: tachycardic RHYTHM: abnormal rhythm irregularly irregular GI: COMMON NORMALS: Soft to palpation and No hepatosplenomegaly present AUSCULTATION: Yes normoactive bowel sounds PALPATION: Yes Soft to palpation, No Tenderness to palpation present (GI), No Guarding due to palpation present (GI) and Yes No hepatosplenomegaly present Extremity: COMMON NORMALS: normal to inspection, capillary refill normal, no clubbing, cyanosis or edema, no calf tenderness and no pedal edema Neuro: SENSORIUM/ORIENTATION: Yes oriented to person, Yes oriented to place and Yes oriented to time Skin: COMMON NORMALS: no rashes or lesions noted GENERAL SKIN EXAM: no rashes or lesions noted Course Vital Signs: Vital signs: Vital Signs Temperature 98.2 F 07/26/23 08:09 Pulse Rate 98 07/26/23 09:09 Respiratory Rate 13 07/26/23 09:09 Blood Pressure 152/96 07/26/23 09:09 Pulse Oximetry 95 07/26/23 09:09 Oxygen Delivery Me thod Room Air 07/26/23 09:09 MDM - Arrhythmia/Palpitations Medical Decision Making Patient given Cardizem IV in the field and his rate is well controlled now he was given oral Cardizem CD 120 we monitored for him. At time and then had him ambulate he had no significant jump in his heart rate during this time. We will discharge him home on the Cardizem CD 120 daily he received the first dose here advised him to start the prescription tomorrow encouraged him to follow-up with cardiology within the next week continue his other medications. Return if he has further problems. Medical Records I reviewed the patient's medical records. Lab Data I reviewed the patient's lab results. 07/26/23 08:15 07/26/23 08:15 Laboratory Results WBC 6.70 10^3/uL (3.29-11.43) 07/26/23 08:15 RBC 6.19 10^6/uL (3.85-5.65) H 07/26/23 08:15 Hgb 17.10 g/dL (11.27-16.99) H 07/26/23 08:15 Hct 53.4 % (37-53) H 07/26/23 08:15 MCV 86.3 fl (82-101) 07/26/23 08:15 MCH 27.6 pg (27-33) 07/26/23 08:15 MCHC 32.0 g/dL (30-55) 07/26/23 08:15 RDW 13.5 % (12.1-15.1) 07/26/23 08:15 Plt Count 293 10^3/cmm (157-399) 07/26/23 08:15 MPV 9.6 fL (7.4-10.4) 07/26/23 08:15 Neut % (Auto) 68.5 % 07/26/23 08:15 Lymph % (Auto) 19.0 % 07/26/23 08:15 [place] % (Auto) 5.5 % 07/26/23 08:15 Eos % (Auto) 6.0 % 07/26/23 08:15 Baso % (Auto) 0.9 % 07/26/23 08:15 Neut # (Auto) 4.59 10^3/uL (1.8-7.7) 07/26/23 08:15 Lymph # (Auto) 1.3 10^3/uL (0.8-4.8) 07/26/23 08:15 [place] # (Auto) 0.4 10^3/uL (0.2-0.9) 07/26/23 08:15 Eos # (Auto) 0.4 10^3/uL (0.0-0.8) 07/26/23 08:15 Baso # (Auto) 0.1 10^3/uL (0.0-0.1) 07/26/23 08:15 Nucleated RBC % (auto) 0 % 07/26/23 08:15 Nucleated RBCs # 0.0 /100WBC 07/26/23 08:15 Sodium 135 mmol/L (136-145) L 07/26/23 08:15 Potassium 4.0 mmol/L (3.5-5.1) 07/26/23 08:15 Chloride 103 mmol/L (98-107) 07/26/23 08:15 Carbon Dioxide 22 mmol/L (22-29) 07/26/23 08:15 Anion Gap 14.0 (5-19) 07/26/23 08:15 BUN 11 mg/dL (8-23) 07/26/23 08:15 Creatinine 0.9 mg/dL (0.7-1.2) 07/26/23 08:15 GFR Calculation 85.5 mL/min (90-130) L 07/26/23 08:15 Glucose 139 mg/dL (65-115) H 07/26/23 08:15 Calculated Osmolality 282 mOsm/kg (285-295) L 07/26/23 08:15 Calcium 9.0 mg/dL (8.5-10.5) 07/26/23 08:15 Total Bilirubin 0.8 mg/dL (0.15-1.2) 07/26/23 08:15 AST 17 U/L (0-40) 07/26/23 08:15 ALT 23 U/L (0-41) 07/26/23 08:15 Alkaline Phosphatase 120 U/L (40-130) 07/26/23 08:15 Total Protein 7.3 g/dL (6.6-8.7) 07/26/23 08:15 Albumin 4.0 g/dL (3.5-5.2) 07/26/23 08:15 Globulin 3.3 g/dL (1.3-4.6) 07/26/23 08:15 Urine Color Yellow (Yellow) 07/26/23 08:32 Urine Appearance Clear (CLEAR) 07/26/23 08:32 Urine pH 5 (5-7) 07/26/23 08:32 Ur Specific [place] 1.020 (1.005-1.030) 07/26/23 08:32 Urine Protein Trace (Negative) 07/26/23 08:32 Urine Glucose (UA) Norm (Normal) 07/26/23 08:32 Urine Ketones 1+ (Negative) H 07/26/23 08:32 Urine Blood Neg (Negative) 07/26/23 08:32 Urine Nitrate Negative (Negative) 07/26/23 08:32 Urine Bilirubin Neg (Negative) 07/26/23 08:32 Urine Urobilinogen 1 mg/dL (Negative) H 07/26/23 08:32 Ur Leukocyte Esterase Negative (Negative) 07/26/23 08:32 Urine RBC 5-10 /hpf (0-2) H 07/26/23 08:32 Urine WBC 5-10 /hpf (0-5) H 07/26/23 08:32 Ur Squamous Epith Cells 5-10 /hpf (0-5) H 07/26/23 08:32 Amorphous Sediment Not Reportable 07/26/23 08:32 Urine Bacteria Trace /hpf (NONE) 07/26/23 08:32 Urine Mucus 1+ /hpf 07/26/23 08:32 Discharge Plan Discharge Patient Disposition: Home Clinical Impression: Paroxysmal A-fib Condition: Stable Prescriptions: New Cardizem CD 120 mg capsule,extended release 24hr 120 mg PO DAILY Qty: 30 0RF No Action buspirone 5 mg tablet 7.5 mg PO TID lorazepam 0.5 mg tablet 0.5 mg PO BID PRN (Reason: anxiety) Qty: 30 1RF amlodipine 10 mg tablet 10 mg PO QAM Allergy Relief (fluticasone) 50 mcg/actuation spray,suspension 1 spray intranasal BID PRN (Reason: Allergy Symptoms) Rx Instructions: administer into each nostril valsartan 40 mg tablet 40 - 80 mg PO DAILY cholecalciferol (vitamin D3) 1,250 mcg (50,000 unit) capsule 50,000 unit PO Q7D Rx Instructions: on tue Xarelto 10 mg tablet 10 mg PO QAM Nitrostat 0.4 mg Tablet, Sublingual 0.4 mg SUBLINGUAL Q5M PRN (Reason: Chest Pain) Rx Instructions: do not exceed 3 doses per episode Discharge Orders: Discharge ED (Routine); Ordered 07/26/23 Ordered By: Lázaro Rhodes Referrals: Giorgi Cortes MD [Primary Care Provider] - Discharge Diet: Usual diet Discharge Activity: Resume usual activity Patient Instructions: Opioid Safety, Pain Management Activity Restrictions/Additional Instructions: Follow up with cardiology within the next week. Start the oral cardizem tomorrow, you were given the first dose while in the ER. Coding Level of Care Code ED Security Guard Dispatcher for Ender Landeros
[2023-07-26 08:09] VITALS: TEMP 36.8
[2023-07-26] MEDS: dilTIAZem ER (24HR) 120 mg Capsule PO (08:14)
[2023-07-26 08:21] LABS: Basophils # 0.1 10^3/uL (0.0-0.1); Basophils % 0.9 %; Eosinophils # 0.4 10^3/uL (0.0-0.8); Hematocrit 53.4 % (37-53); Lymphocytes # 1.3 10^3/uL (0.8-4.8); Mean Corpuscular Hemoglobin 27.6 pg (27-33); Mean Corpuscular Volume 86.3 fl (82-101); Mean Platelet Volume 9.6 fL (7.4-10.4); Monocytes # 0.4 10^3/uL (0.2-0.9); Monocytes % 5.5 %; Neutrophils # 4.59 10^3/uL (1.8-7.7); Neutrophils % 68.5 %; Nucleated Red Blood Cells % 0 %; Platelet Count 293 10^3/cmm (157-399); Red Blood Count 6.19 10^6/uL (3.85-5.65); Red Cell Distribution Width 13.5 % (12.1-15.1)
[2023-07-26 08:43] LABS: Alanine Aminotransferase 23 U/L (0-41); Alkaline Phosphatase 120 U/L (40-130); Aspartate Amino Transferase 17 U/L (0-40); Blood Urea Nitrogen 11 mg/dL (8-23); Carbon Dioxide 22 mmol/L (22-29); Chloride 103 mmol/L (98-107); Globulin 3.3 g/dL (1.3-4.6); Glomerular Filtration Rate 85.5 mL/min (90-130); Glucose 139 mg/dL (65-115); Osmolality Calculated 282 mOsm/kg (285-295); Sodium 135 mmol/L (136-145); Total Bilirubin 0.8 mg/dL (0.15-1.2); Total Protein 7.3 g/dL (6.6-8.7)
--- NOTE | 2023-07-26 08:49 | PC.PHAR ---
pt states he takes care of his own medications-pt states he has been taking valsartan 40-80mg daily for the past few weeks for his blood pressure-rx written 05/05/23 40mg daily -notes are made in the pharmacy comment
[2023-07-26 08:56] VITALS: BP 154/81; PULSE 106; RESP 18; O2SAT 95
[2023-07-26 08:58] LABS: Add Urine Culture? No; Add Urine Microscopic? YES; Bacteria Urine TRACE /hpf; Bilirubin Urine Neg (Negative); Blood Urine Neg (Negative); Glucose Urine UA Norm (Normal); Ketones Urine 1+ (Negative); Leukocyte Esterase Urine Negative (Negative); Mucus Urine 1+ /hpf; Nitrate Urine Negative (Negative); Protein Urine Trace (Negative); Urine Appearance Clear (CLEAR); Urine Color Yellow (Yellow); Urobilinogen Urine 1 mg/dL (Negative); pH Urine 5 (5-7)
--- NOTE | 2023-07-26 09:03 | PC.NURSE ---
[place] AMBULATED DOWN THE REA. PT O2 NEVER DROPPED BELOW 95 AND HR STABLE AT 94 DOWN TO 88 DOWN TO 73 WHILE AMBULATING. NOTIFIED
[2023-07-26 09:09] VITALS: BP 152/96; PULSE 98; RESP 13; O2SAT 95
[2023-07-26 09:31] VITALS: BP 137/83; PULSE 101; RESP 22; O2SAT 95
== END 2023-07-26 09:32 | disposition home or self-care (01) ==
PROVIDERS: Emergency Provider Family Medicine; PCP Family Medicine
DX: I48.0 Paroxysmal atrial fibrillation (principal); Z87.891 Personal history of nicotine dependence; I25.10 Atherosclerotic heart disease of native coronary artery without angina pectoris; I11.0 Hypertensive heart disease with heart failure; I50.9 Heart failure, unspecified; E78.5 Hyperlipidemia, unspecified
CPT/HCPCS: 36415; 71045; 80053; 81001; 85025; 93005; 99285

== ENCOUNTER 2023-07-28 07:40 | Oncology outpatient (recurring) (ONCR) | payer SELFPAY ==
[2023-07-28 09:25] VITALS: BP 160/94; PULSE 86; RESP 16; TEMP 36.6; O2SAT 96
[2023-07-28 09:34] LABS: Basophils # 0.1 10^3/uL (0.0-0.1); Eosinophils # 0.4 10^3/uL (0.0-0.8); Eosinophils % 5.8 %; Lymphocytes # 1.4 10^3/uL (0.8-4.8); Mean Corpuscular HGB Conc 31.9 g/dL (30-55); Mean Corpuscular Hemoglobin 27.6 pg (27-33); Mean Corpuscular Volume 86.4 fl (82-101); Mean Platelet Volume 10.1 fL (7.4-10.4); Monocytes # 0.5 10^3/uL (0.2-0.9); Monocytes % 6.9 %; Neutrophils # 4.78 10^3/uL (1.8-7.7); Nucleated Red Blood Cells % 0 %; Platelet Count 277 10^3/cmm (157-399); Red Blood Count 6.02 10^6/uL (3.85-5.65); Red Cell Distribution Width 13.5 % (12.1-15.1); White Blood Count 7.12 10^3/uL (3.29-11.43)
[2023-07-28 10:00] LABS: Alanine Aminotransferase 18 U/L (0-41); Albumin Level 4.1 g/dL (3.5-5.2); Alkaline Phosphatase 113 U/L (40-130); Anion Gap 12.7 (5-19); Aspartate Amino Transferase 13 U/L (0-40); Blood Urea Nitrogen 15 mg/dL (8-23); Calcium 9.1 mg/dL (8.5-10.5); Carbon Dioxide 27 mmol/L (22-29); Chloride 106 mmol/L (98-107); Glomerular Filtration Rate 67.8 mL/min (90-130); Glucose 135 mg/dL (65-115); Lactate Dehydrogenase 175 U/L (135-225); Osmolality Calculated 295 mOsm/kg (285-295); Potassium 4.7 mmol/L (3.5-5.1); Sodium 141 mmol/L (136-145); Total Bilirubin 0.6 mg/dL (0.15-1.2); Total Protein 7.1 g/dL (6.6-8.7)
[2023-08-01 09:33] LABS: Erythropoietin 6.3 mIU/mL (2.6-18.5)
[2023-08-03 02:14] LABS: CARDIOLIPIN AB (IGA) <2.0 APL-U/mL; CARDIOLIPIN AB (IGG) <2.0 GPL-U/mL; CARDIOLIPIN AB (IGM) <2.0 MPL-U/mL
[2023-08-04 19:00] LABS: CALR Exon 9 Mutation NOT DETECTED (NOT DETECTED); CSF3R Exon 14/17 Mutation NOT DETECTED (NOT DETECTED); JAK2 Exon 12 Mutation NOT DETECTED (NOT DETECTED); JAK2 V617 Block Specimen ID NG; JAK2 V617 Clinical Indication 5784600; JAK2 V617 Mutation NOT DETECTED (NOT DETECTED); JAK2 V617 Specimen Source WHOLE BLOOD; MPL Exon 12 Mutation NOT DETECTED (NOT DETECTED)
== END 2023-08-13 23:59 | disposition home or self-care (01) ==
PROVIDERS: PCP Family Medicine; Visit Provider Internal Medicine Medical Oncology
DX: D75.1 Secondary polycythemia (principal); D68.62 Lupus anticoagulant syndrome
CPT/HCPCS: 36415; 80053; 81270; 81279; 81339; 81479; 82668; 83615; 85025; 86147

== ENCOUNTER 2024-01-09 15:24 | Oncology outpatient (recurring) (ONCR) | payer SELFPAY ==
[2024-01-09 16:45] LABS: Basophils # 0.1 10^3/uL (0.0-0.1); Basophils % 0.9 %; Eosinophils # 0.6 10^3/uL (0.0-0.8); Eosinophils % 8.1 %; Hematocrit 47.8 % (37-53); Lymphocytes # 1.4 10^3/uL (0.8-4.8); Lymphocytes % 18.7 %; Mean Corpuscular HGB Conc 33.1 g/dL (30-55); Mean Corpuscular Hemoglobin 27.9 pg (27-33); Mean Corpuscular Volume 84.5 fl (82-101); Mean Platelet Volume 10.2 fL (7.4-10.4); Monocytes # 0.5 10^3/uL (0.2-0.9); Monocytes % 7.3 %; Neutrophils # 4.81 10^3/uL (1.8-7.7); Neutrophils % 64.7 %; Nucleated Red Blood Cells % 0 %; Platelet Count 267 10^3/cmm (157-399); Red Blood Count 5.66 10^6/uL (3.85-5.65); Red Cell Distribution Width 13.6 % (12.1-15.1); White Blood Count 7.43 10^3/uL (3.29-11.43)
[2024-01-09 17:09] LABS: Alanine Aminotransferase 15 U/L (0-41); Alkaline Phosphatase 99 U/L (40-130); Aspartate Amino Transferase 14 U/L (0-40); Blood Urea Nitrogen 12 mg/dL (8-23); Carbon Dioxide 26 mmol/L (22-29); Chloride 105 mmol/L (98-107); Creatinine Clr Calc Pharmacy 133.6034; Globulin 2.9 g/dL (1.3-4.6); Glomerular Filtration Rate 85.5 mL/min (90-130); Glucose 144 mg/dL (65-115); Osmolality Calculated 294 mOsm/kg (285-295); Sodium 141 mmol/L (136-145); Total Bilirubin 0.8 mg/dL (0.15-1.2); Total Protein 6.9 g/dL (6.6-8.7)
== END 2024-01-12 23:59 | disposition home or self-care (01) ==
PROVIDERS: Nurse Practitioner Family; PCP Family Medicine; Visit Provider Internal Medicine Medical Oncology
DX: D75.1 Secondary polycythemia (principal)
CPT/HCPCS: 36415; 80053; 85025

== ENCOUNTER → 2024-02-15 11:01 | Outpatient (BNVA) | payer SELFPAY | PROVIDERS: PCP Family Medicine; Visit Provider Family Medicine | DX: Z51.81 Encounter for therapeutic drug level monitoring (principal); Z13.220 Encounter for screening for lipoid disorders; E11.9 Type 2 diabetes mellitus without complications | CPT/HCPCS: 80053; 80061; 83036; 83735; 85025 ==

== ENCOUNTER 2024-04-10 15:40 | Outpatient (CLI) | payer SELFPAY ==
--- NOTE | 2024-04-10 15:44 | XR_ITS ---
WS: [id number] Exam: XR knee LT 3V* [id number] Date/Time of Exam: 04/10/2024 3:44 PM Reason For Exam: Left knee pain No fracture or dislocation noted. No joint effusion. Tricompartmental degenerative changes noted most advanced involving the medial joint compartment. Calcified tendon attachments at the anterior tibial tubercle and the anterior patella. XR/XR knee LT 3V* [id number] IMPRESSION: 1. Mild to moderate degenerative changes. No fracture or joint effusion. 2. Bony changes about the knee to suggest diffuse idiopathic skeletal hyperosto sis.
== END 2024-04-10 15:41 | disposition home or self-care (01) ==
LOC: RAD 15:41
PROVIDERS: PCP Family Medicine; Visit Provider Family Medicine
DX: M25.562 Pain in left knee (principal); M17.12 Unilateral primary osteoarthritis, left knee; M65.20 Calcific tendinitis, unspecified site
CPT/HCPCS: 73562

== ENCOUNTER 2024-04-27 09:03 | Oncology outpatient (recurring) (ONCR) | payer SELFPAY ==
[2024-04-27 09:27] VITALS: BP 151/75; PULSE 51; RESP 18; TEMP 36.4; O2SAT 94
[2024-04-27 09:49] LABS: Basophils # 0.1 10^3/uL (0.0-0.1); Basophils % 0.9 %; Eosinophils # 0.5 10^3/uL (0.0-0.8); Eosinophils % 6.8 %; Hematocrit 49.9 % (37-53); Lymphocytes # 1.5 10^3/uL (0.8-4.8); Lymphocytes % 22.1 %; Mean Corpuscular HGB Conc 32.1 g/dL (30-55); Mean Corpuscular Volume 87.4 fl (82-101); Mean Platelet Volume 10.4 fL (7.4-10.4); Monocytes # 0.5 10^3/uL (0.2-0.9); Monocytes % 7.6 %; Neutrophils # 4.12 10^3/uL (1.8-7.7); Neutrophils % 62.3 %; Nucleated Red Blood Cells % 0 %; Platelet Count 250 10^3/cmm (157-399); Red Blood Count 5.71 10^6/uL (3.85-5.65); Red Cell Distribution Width 13.3 % (12.1-15.1); White Blood Count 6.61 10^3/uL (3.29-11.43)
[2024-04-27 10:12] LABS: Alanine Aminotransferase 15 U/L (0-41); Albumin Level 4.1 g/dL (3.5-5.2); Alkaline Phosphatase 100 U/L (40-130); Anion Gap 14.4 (5-19); Aspartate Amino Transferase 14 U/L (0-40); Blood Urea Nitrogen 12 mg/dL (8-23); Calcium 9.1 mg/dL (8.5-10.5); Carbon Dioxide 25 mmol/L (22-29); Chloride 106 mmol/L (98-107); Globulin 3.1 g/dL (1.3-4.6); Glucose 127 mg/dL (65-115); Osmolality Calculated 293 mOsm/kg (285-295); Potassium 4.4 mmol/L (3.5-5.1); Sodium 141 mmol/L (136-145); Total Bilirubin 0.5 mg/dL (0.15-1.2); Total Protein 7.2 g/dL (6.6-8.7)
== END 2024-05-13 23:59 | disposition home or self-care (01) ==
PROVIDERS: Nurse Practitioner Family; PCP Family Medicine; Visit Provider Internal Medicine Medical Oncology
DX: D75.1 Secondary polycythemia (principal)
CPT/HCPCS: 36415; 80053; 85025

== ENCOUNTER → 2024-05-11 08:40 | Outpatient (BNVA) | payer SELFPAY | PROVIDERS: PCP Family Medicine; Visit Provider Physician Assistant | DX: M25.562 Pain in left knee (principal); M17.12 Unilateral primary osteoarthritis, left knee | CPT/HCPCS: 73560; 73565 ==

== ENCOUNTER 2024-05-11 09:47 | Outpatient (CLI) | payer SELFPAY | END 2024-05-11 09:48 | disposition home or self-care (01) | LOC: SPT 09:48 | PROVIDERS: PCP Family Medicine; Visit Provider Physician Assistant | DX: Z46.89 Encounter for fitting and adjustment of other specified devices (principal); M17.12 Unilateral primary osteoarthritis, left knee; M25.562 Pain in left knee | CPT/HCPCS: L1852 ==

== ENCOUNTER → 2025-01-28 15:37 | Outpatient (BNVA) | payer BC, SELFPAY | PROVIDERS: PCP Family Medicine; Visit Provider Family Medicine | DX: Z00.00 Encounter for general adult medical examination without abnormal findings (principal); I10 Essential (primary) hypertension; R53.81 Other malaise; R53.83 Other fatigue; R73.03 Prediabetes; R25.2 Cramp and spasm; R35.0 Frequency of micturition; E55.9 Vitamin D deficiency, unspecified; E53.8 Deficiency of other specified B group vitamins; Z51.81 Encounter for therapeutic drug level monitoring | CPT/HCPCS: 80053; 82306; 82607; 83036; 83735; 84153; 84439; 84443; 85025 ==

== ENCOUNTER → 2025-05-31 15:24 | Outpatient (BNVA) | payer BC, SELFPAY | PROVIDERS: PCP Family Medicine; Visit Provider Emergency Medicine | DX: R39.9 Unspecified symptoms and signs involving the genitourinary system (principal); N41.9 Inflammatory disease of prostate, unspecified | CPT/HCPCS: 81000; 87086 ==